=== PATIENT | female | born 1935 | race Caucasian/White ===

== ENCOUNTER 2017-01-27 15:04 | Outpatient (CLI) | payer MEDICARE ==
--- NOTE | 2017-01-27 17:23 | MMO ---
SCREENING MAMMOGRAM: DATE: 01/27/17 HISTORY: Screening mammography. COMPARISON: 03/17/13. FINDINGS: Heterogeneously dense fibroglandular tissue and benign-appearing calcifications are again demonstrat ed. Parenchymal scarring is stable. The left breast is surgically absent. No dominant mass or suspic ious calcifications are apparent. The study was evaluated with the assistance of computer-aided detection. IMPRESSION: BIRADS 2: Benign Finding(s) Suggest routine follow-up. POS: JAG
== END 2017-01-27 15:05 | disposition home or self-care (01) ==
LOC: MAMMO 15:04 → SCSMAMMO 15:05
PROVIDERS: ATTEND Internal Medicine
DX: Z12.31 Encounter for screening mammogram for malignant neoplasm of breast (principal)
CPT/HCPCS: 77067; G0202

== ENCOUNTER 2017-04-26 01:00 | Inpatient (IN) | payer MEDICARE ==
[2017-04-26] MEDS ORDERED: Fentanyl 100 MCG/2 ML VIAL ONE (01:49)
[2017-04-26 02:42] LABS: #Basophils 0.1 thou/uL (0.0-0.2); #Eosinphils 0.3 thou/uL (0.0-0.7); #Lymphocytes 1.9 thou/uL (1.20-3.40); #Monocytes 0.8 thou/uL (0.11-0.59); #Neutrophils 11.3 thou/uL (1.40-6.50); %Basophils 0.8 % (0.0-1.0); %Lymphocytes 13.2 % (21.0-51.0); %Monocytes 5.5 % (0.0-10.0); %Neutrophils 78.7 % (42.0-75.0); Mean Corpuscular HGB CONC 31.8 g/dL (32.0-36.0); Mean Corpuscular Hemoglobin 26.8 pg (27.0-31.0); Mean Corpuscular Volume 84.4 fl (81.0-99.0); Mean Platelet Volume 6.9 fL (7.4-10.4); Platelet Count 236 thou/uL (130-400); RBC Distribution Width 13.5 % (11.5-14.5); Red Blood Cell (RBC) Count 4.47 mill/uL (4.20-5.40); White Blood Cell (WBC) Count 14.4 thou/uL (4.8-10.8)
[2017-04-26 03:01] LABS: ALT (SGPT) 8 U/L (8-55); AST (SGOT) 14 U/L (5-34); Albumin 3.9 g/dL (3.4-4.8); Alkaline Phosphatase 112 U/L (40-150); Anion Gap 15 mmol/L (10-20); BUN (Urea Nitrogen) 34 mg/dL (9.8-20.1); Bilirubin, Total 0.3 mg/dL (0.2-1.2); Calc. Creatinine Clearance 0 mL/min (70-130); Calcium 9.8 mg/dL (7.8-10.44); Carbon Dioxide 22 mmol/L (23-31); Chloride 101 mmol/L (98-107); Estimated GFR-MDRD 31; Globulin 2.9 g/dL (2.4-3.5); Glucose 123 mg/dL (83-110); Potassium 4.9 mmol/L (3.5-5.1); Protein, Total 6.8 g/dL (6.0-8.3); Sodium 133 mmol/L (136-145)
[2017-04-26 05:09] LABS: Bilirubin Negative (Negative); Blood, Urine Negative (Negative); Clarity CLEAR (Clear); Glucose, Urine (Dipstick) Negative (Negative); Leukocyte Negative (Negative); Nitrite Negative (Negative); Protein, Urine (Dipstick) Negative (Neg-Trace); Urobilinogen 0.2 mg/dL (0.2-1.0); pH, Urine 6.5 (5.0-9.0)
[2017-04-26] MEDS ORDERED: HumaLOG 300 UNITS/3 ML VIAL SC PRN ×2 (05:38→16:10)
[2017-04-26] MEDS ORDERED: Ondansetron HCl/PF 4 MG/2 ML Vial IVP PRN (05:38)
[2017-04-26] MEDS ORDERED: Dextrose 5% in Water 1,000 ML IV PRN (05:38)
[2017-04-26] MEDS ORDERED: Dextrose 50% Abboject 50 ML SYRINGE SLOW IVP PRN ×2 (05:38)
[2017-04-26] MEDS: Sodium Chloride 0.9% 1,000 ML IV SCH ×2 (06:32→15:51)
--- NOTE | 2017-04-26 07:36 | HP ---
DATE OF ADMISSION: 04/26/2017 TIME OF VISIT: 03:45. PRIMARY CARE PHYSICIAN: Listed is Dr. Morales, however, Dr. Babin was on her half-way admit p alonso. CHIEF COMPLAINT: Abdominal pain. HISTORY OF PRESENT ILLNESS: Ms. Vieyra is a pleasant 81-year-old white female with a history of cer ebrovascular disease, status post stroke, leaving her with some left hemiplegia, diabetes, hyperlipid emia, chronic atrial fibrillation, UTI, and a small-bowel obstruction in the past, who presents to [facility] emergency department with onset of abdominal pain on 2100 hours on 04/25. The patient states that she was able to eat dinner without difficulty, was passing gas up until the abdominal pain started. She has not had any gas passing since then. Denies any fevers or chills. No chest pain or difficulty breathing. No hematemesis or melena. In the emergency department, she had a CT scan of the abdomen that was concerning for sigmoid volvulu s through the emergency room physician. Dr. Shelton and Dr. Piper were contacted. They agreed t o see the patient and requested that we admit due to multiple chronic medical issues. Official report from the CT has been out. The radiologist has mentioned that he does not think the p atient has a sigmoid volvulus and there is enough stool in the rectal vault to explain the gas retent ion. PAST MEDICAL HISTORY: 1. Urinary tract infections. 2. Small-bowel obstruction. 3. Eosinophilic colitis. 4. 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 5. Diabetes mellitus, type 2. 6. Hyperlipidemia. 7. Anxiety. 8. Chronic atrial fibrillation. 9. Adhesions intraabdominally. PAST SURGICAL HISTORY: 1. Pacemaker placement. 2. Left breast mastectomy and reconstruction. 3. Appendectomy with cholelithiasis. 4. Hernia repair. 5. Hysterectomy. 6. Neck surgery. 7. Left arm surgery. HOME MEDICATIONS: 1. Glyburide 2 mg daily. 2. Aspirin 81 mg daily. 3. Xarelto 15 mg p.o. at bedtime. 4. Lasix 20 mg daily. 5. MiraLax as needed. 6. Dulcolax 5 mg p.o. q.h.s. 7. Colace 100 mg p.o. b.i.d. 8. Milk of magnesia b.i.d. p.r.n. 9. Pazeo 0.7% both eyes daily, 1 drop. 10. Protonix 40 mg p.o. daily. 11. Lipitor 20 mg p.o. at bedtime. 12. Melatonin 3 mg p.o. at bedtime. 15. Temazepam 15 mg p.o. at bedtime. 16. Cardizem-CD 180 mg p.o. b.i.d. 17. Toprol-XL 100 mg p.o. b.i.d. 18. Xanax 1 mg p.o. t.i.d. p.r.n. anxiety. 19. Hydralazine 50 mg p.o. b.i.d. 20. Atorvastatin 20 mg p.o. daily. 21. Spironolactone 50 mg daily. 22. Losartan 50 mg p.o. daily. 23. Acidophilus 1 tablet daily. ALLERGIES: ACETAMINOPHEN, BUSPIRONE, CETIRIZINE, CIPROFLOXACIN, CODEINE, HYDROCODONE, MIRTAZAPINE, M ORPHINE, NAPROSYN, PROPOXYPHENE, VERAPAMIL. SOCIAL HISTORY: She lives at [facility]. Negative for habits x3. FAMILY HISTORY: Negative for clotting or bleeding disorders where she can recall. REVIEW OF SYSTEMS: A 10-point review of systems was performed, and per the patient is negative for a ll systems except as stated as per HPI. PHYSICAL EXAMINATION: VITAL SIGNS: Temperature is 98.3, pulse 72, blood pressure 184/70, respiratory 18, satting 98% on ro om air. Weight is 81 kilograms. GENERAL: She is awake. She is alert. She is oriented x3. She is a well-developed, well-nourished, elderly white female, appears to be in no acute distress. HEENT: Normocephalic, atraumatic. Pupils equal, round, and reactive bilaterally. Mucous membranes are moist. There is no visible lesion or thrush. NECK: Supple. There is no lymphadenopathy, JVD, or thyromegaly with normal carotid upstrokes. I do not appreciate bruits. LUNGS: Clear to auscultation bilaterally, no wheezes, no rales, no rhonchi with good air movement an d symmetrical chest excursion. There is no prolonged expiratory phase. CARDIOVASCULAR: She is irregularly irregular. She is normocardic at 72. She has a faint 2-3/6 syst olic ejection murmur and a faint holosystolic murmur at the apex. ABDOMEN: Tense and distended. She feels like she has a ventral hernia. She is tympanitic. Somewha t tense. She is tender to palpation diffusely. There is no rebound. There is no rigidity or guardi ng. She has scant bowel sounds present in all 4 quadrants with occasional low-pitched sounds and a f ew high-pitched tinkling sounds diffusely. EXTREMITIES: Show no cyanosis and no clubbing. She has no edema. SKIN: Warm, moist, and well perfused. There are no rashes and no lesions. NEUROLOGIC EXAM: Shows cranial nerves to be grossly intact. She has normal speech pattern. She has a 4/5 weakness on the left arm and leg and 5/5 weakness on the right. Otherwise, no other focal def icits. LABORATORY DATA: CMP showed a sodium 133, potassium 4.9, chloride 101, bicarb 22, BUN 34, creatinine 1.58, and calcium 9.8. Sugars are 123. Lactic acid was normal at 1.8. Liver function is normal. CBC showed a white count of 14.4, hemoglobin 12.0, hematocrit of 37.7, platelets 236,000. Radiographic studies show distended colon, no evidence of volvulus. Addendums specifically point out that there is no volvulus. ASSESSMENT AND PLAN: 1. Abdominal pain seems to be better at present. 2. Abdominal distention: There is some stool in the rectal vault. Radiology feels this may be enou gh to cause gas retention. At this point, we will call it obstipation and GI and Surgery were consul venessa by the emergency room physicians to follow up on their recommendations. In the meantime, we will keep her n.p.o., and place her on IV fluids. 3. History of cerebrovascular disease. 4. History of hypertension. 5. History of diabetes mellitus, type 2. 6. Hyperlipidemia. 7. Anxiety with chronic atrial fibrillation. We will hold off on home medications at present pending GI and surgical evaluation. We will follow u p on their recommendations.
--- NOTE | 2017-04-26 08:30 | CT ---
PRELIMINARY REPORT/[facility]/EMERGENCY AFTER HOURS PROCEDURE: Addendum created by Gerard Morelos MD on 04/26/2017 3:12 AM Central Time ([place] & [place]) ADDENDUM: The mid and distal sigmoid colon are mildly distended with gas (maximal measurement 7 cm), without ev idence of obstruction. No sigmoid volvulus. No bowel wall thickening, pneumatosis, or perienteric inf lammation. The remainder of the bowel appears unremarkable. THIS REPORT CONTAINS FINDINGS THAT MAY BE CRITICAL TO PATIENT CARE. The findings were verbally commun icated via telephone conference with ALISON PANIAGUA at 3:11 AM [employer] on 04/26/2017. The findings were a cknowledged and understood. Initial Report created on 04/26/2017 2:58 AM Central Time ([place] & [place]) EXAM: CT Abdomen and Pelvis Without Intravenous Contrast CLINICAL HISTORY: 81 years old, female; Pain; Abdominal pain; Generalized; Patient HX: Abd pain TECHNIQUE: Axial computed tomography images of the abdomen and pelvis without intravenous contrast. Coronal reformatted images were created and reviewed. COMPARISON: No relevant prior studies available. FINDINGS: Lower thorax: Minimal scarring within the anterior right middle lobe. Partially visualized pacemaker leads within the right cardiac chambers. Mild four-chamber cardiac enlargement. Atherosclerotic disea se of the visualized distal thoracic aorta. ABDOMEN: Liver: Normal. Gallbladder and bile ducts: Normal. Pancreas: Normal. Spleen: Calcification of the splenic artery. Adrenals: Normal. Kidneys and ureters: Mild left renal atrophy. Right renal angiomyolipoma. Bilateral simple renal cyst s. Stomach and bowel: Normal. Appendix: No findings to suggest acute appendicitis. PELVIS: Bladder: Normal. Reproductive: Uterus is surgically absent. ABDOMEN and PELVIS: Intraperitoneal space: Normal. No free air. No significant fluid collection. Bones/joints: Generalized bony demineralization. Multilevel thoraco-lumbar spine degenerative changes , with levoscoliosis of the lumbar spine. No acute fracture. No dislocation. Soft tissues: Changes of prior ventral hernia, without acute complications. Vasculature: Atherosclerotic disease of the abdominal aorta and iliac arteries. Lymph nodes: Normal. IMPRESSION: 1. No acute findings. 2. Non-acute findings are described above. Thank you for allowing us to participate in the care of your patient. Dictated and Authenticated by: Gerard Morelos MD 04/26/2017 2:58 AM Central Time ([place] & [place]) FINAL REPORT NONCONTRAST ENHANCED CT IMAGES OF ABDOMEN AND PELVIS: Date: 04/26/17 HISTORY: 81-year-old female with history of abdominal pain. FINDINGS: Noncontrast enhanced CT images of the abdomen and pelvis obtained. IV and oral contrast were not give n per ordering physician. The lung bases are unremarkable. No evidence of free intraperitoneal air seen. The liver is unremarka ble. Splenic artery calcifications seen. There are asymmetric sizes of the right and left kidney with the left kidney being atrophied. Areas of mid and upper pole left renal calcifications seen. No evid ence of hydroureteronephrosis seen. An angiomyolipoma is seen in the lower pole of the right kidney. No evidence of bowel obstruction or ileus seen. No dilated loops of bowel seen. I am in agreement with the preliminary report issued by [facility]. POS: JAG
[2017-04-26] MEDS: Famotidine/PF 20 mg/2ml Vial SLOW IVP SCH (09:06)
[2017-04-26] MEDS ORDERED: Bisacodyl 10 MG SUPP PR PRN (09:38)
[2017-04-26] MEDS ORDERED: hydrALAZINE 20 MG/ML VIAL SLOW IVP PRN (13:10)
[2017-04-26] MEDS ORDERED: Labetalol HCl 100 MG/20 ML VIAL SLOW IVP PRN (13:10)
[2017-04-26] MEDS ORDERED: Artificial Tears 18 DROP/0.9 ML EA EYE PRN (13:13)
[2017-04-26] MEDS ORDERED: Magnesium Citrate 300 ML BOT PO SCH (13:45)
[2017-04-26] MEDS: traMADol HCl 50 MG TAB PO PRN (14:33)
[2017-04-26] MEDS: Docusate 100 MG CAP PO SCH (20:35)
[2017-04-26] MEDS: Rivaroxaban 15 MG TAB PO SCH (20:35)
[2017-04-26] MEDS: Polyethylene Glycol 3350 17 GM Packet PO SCH (20:36)
[2017-04-26] MEDS: Melatonin 3 MG TAB PO PRN (21:26)
--- NOTE | 2017-04-26 22:05 | HP ---
HISTORY OF PRESENT ILLNESS: This is an 81-year-old female, who lives at [facility] in [place]. Patient has had abdominal pain since yesterday. She last passed flatus this morning. Tameka meade has not had a bowel movement in more than 24 hours. She was seen in the emergency room. White cou nt noted to be 14,000, hemoglobin 12. Basic metabolic profile reveals mild acute kidney injury. BUN 34, creatinine 1.58, sodium 133, carbon dioxide 22. Patient has had frequent exacerbations of her B UN and creatinine with mild acute kidney injury looking at the graphics past admissions and hospitali zations. The patient has diabetes, hypertension, had a prior stroke with left hemiparesis, and ambul ates with a walker. She has mild cardiomyopathy, 35%-40% ejection fraction with a right subclavian v ein pacemaker. She has had a left mastectomy with a TRAM flap and mesh repair of incisional hernia o r reinforcement after the TRAM flap. She has had an open cholecystectomy, open appendectomy, a hyste rectomy, and one operation for bowel obstruction, adhesiolysis 10 years ago. Patient reports some ab dominal pain. She has been admitted and Gastroenterology consulted, Dr. Piper as well as myself. CAT scan of abdomen and pelvis was unrevealing. She did have more stool in her rectosigmoid and sl ight in descending and sigmoid colon, but no evidence of volvulus. Dr. Piper has seen her in [facility] and ordered Dulcolax. MEDICATIONS: In the [facility], Artificial Tears, aspirin 81 mg a day, Dulcolax as needed supposit ory, diltiazem 180 mg p.o. b.i.d., Pepcid daily, hydralazine as needed, insulin, labetalol, Levaquin 500 mg a day, metoprolol 100 mg b.i.d., Xarelto 15 mg at bedtime, tramadol 50 mg as needed, ordered i n the hospital. PAST SURGICAL HISTORY: As noted above, left mastectomy reconstruction, TRAM flap; pacemaker, right s ubclavian vein; open cholecystectomy; open appendectomy; and hysterectomy. PAST MEDICAL HISTORY: Diabetes mellitus insulin dependent; hypertension; prior stroke with left gina paresis, ambulatory on a walker; atrial fibrillation, anticoagulation, on Xarelto. ALLERGIES: ACETAMINOPHEN, she states gives her GI upset. No true allergies. Other allergies listed QUINOLONES, HYDROCODONE, MORPHINE, NAPROSYN, VERAPAMIL. PHYSICAL EXAMINATION: VITAL SIGNS: On exam, height 5 feet 4 inches, 30 BMI, temperature 98.2, heart rate 73, blood pressur e 129/73. HEAD, EYES, EARS, NOSE, AND THROAT: Unremarkable. LUNGS: Clear to auscultation. CARDIAC: Regular rate and rhythm without murmur or gallop. ABDOMEN: Soft. Mild tenderness. No rebound tenderness. No significant distention. Scars per abov e surgical history. EXTREMITIES: Unremarkable, left hemiparaplegia. LABORATORY DATA: Sodium 133, potassium 4.9, carbon dioxide 22, BUN 34, creatinine 1.5, GFR 31, gluco se 123. White count 14 and hemoglobin 12. ASSESSMENT AND PLAN: 1. Abdominal pain, probably related to constipation. We will give MiraLax, lactulose, Colace, Dulco lax. She should have a routine program to prevent constipation at home. 2. Diabetes mellitus. 3. Hypertension. 4. Prior stroke, ambulatory with a walker. 5. Multiple operations as noted above. ADDENDUM: I discussed with her code status; patient desires DNR status. She does not want intubation or defibr illation. We will order her status as DNR. Patient is alert, oriented, and conversive and capable o f making her own decisions.
--- NOTE | 2017-04-26 23:17 | CON ---
DATE OF CONSULTATION: 04/26/2017 REFERRING PHYSICIAN: Eric Ramirez M.D. REASON FOR CONSULTATION: Abdominal discomfort, unable to pass flatus and possibility of sigmoid volv ulus. HISTORY OF PRESENT ILLNESS: Ms. Mirella Vieyra is a very pleasant 81-year-old female who is a [facility] resident. Her regular primary care doctor is Dr. Alan Morales. The patient wa s doing well until last night 9:00 when she felt her abdomen is slightly distended and felt uncomfort able and not able to pass any gas. The patient came to the ER and had abdominal CAT scan that was re ad as possible sigmoid volvulus per the ER M.D. I was called to see the patient because of possible volvulus. However, the radiology report states that no volvulus and she has stool in the rectal vaul t and he does not feel that she has volvulus. The patient had stool yesterday and no stool afterward s. She is not passing gas this morning. Her abdominal pain is somewhat in periumbilical area and lo wer abdomen. The pain is mild actually. There is no nausea, vomiting. No history of fever. The pa fauzia tells me she has had recurrent UTIs and has been on antibiotics recently. She also says she wa s getting some Levaquin in the detention. The patient has been hospitalized in the past with maura lar symptoms and was seen by Dr. Zhang in the past. Going over the medical record that I discovered t hat she has had CAT scans done several times over the last couple of years. There is also mention of a colonoscopy. However, I spoke to the patient she has had a colonoscopy in the last 2 or 3 years i [facility] [place] and was told to be negative. The patient has had abdominal surgeries and has had previous surgery for adhesions. At the present time, she appears very comfortable in no dis tress and denies any nausea and vomiting. She says after passing gas, she actually felt better this morning. No other relevant history. ALLERGIES: Multiple including ACETAMINOPHEN, BUSPIRONE, CETIRIZINE, CIPROFLOXACIN which causes tachy cardia, CODEINE, HYDROCODONE, MIRTAZAPINE, MORPHINE, NAPROXEN, PROPOXYPHENE. SOCIAL HISTORY: The patient is disabled. She is a detention resident. There is no history of sm oking or alcohol abuse in the past. MEDICAL ILLNESSES: 1. Recurrent urinary tract infection. 2. Positive for small-bowel obstruction. 3. Eosinophilic colitis. 4. Atrial fibrillation. 5. Status post CVA with residual left-sided weakness. 6. Hyperlipidemia. 7. Anxiety. 8. Status post appendectomy. 9. Status post cholecystectomy. 10. Hernia repair. 11. Hysterectomy. 12. Neck surgery. 13. Left heart surgery. 14. Left breast mastectomy and breast reconstruction. MEDICATIONS: Long list includes glyburide, aspirin, Xarelto, Lasix, MiraLax. She is also on Dulcola x, Colace, milk of magnesia, Pazeo eyedrops. Other medicines include Protonix, Lipitor, melatonin, _ ____, Cardizem, Toprol. She is also on Xanax, hydralazine, atorvastatin, spironolactone, losartan, a nd Acidophilus. FAMILY HISTORY: No family history of any cancer, heart disease, etc. REVIEW OF SYSTEMS: A 10-point systems review. Constitutional: No history of any fever or chills. No weight loss. Has good appetite. Central nervous system: Positive for CVA with residual left-gerry ed weakness, no headache, no syncope, no seizure disorder. Respiratory: No history of chronic cough , hemoptysis or dyspnea. Cardiovascular: No chest pain, no palpitation, no dyspnea, orthopnea or PN D. Gastrointestinal: As in history of present illness. Genitourinary: At the present time, no dys uria, hematuria or frequency of urination. She began having these symptoms a few days ago. Psychiat arthur: History of anxiety. PHYSICAL EXAMINATION: GENERAL: This is very pleasant, elderly who appears very comfortable. She is awake, alert , oriented to time, place and person. VITAL SIGNS: Her temperature 98.5 degrees Fahrenheit, pulse 75, blood pressure 130/74. HEENT: Conjunctivae clear. NECK: Supple. No adenitis or thyromegaly noted. CARDIOVASCULAR SYSTEM: First and second heart sounds normal. LUNGS: Clear to auscultation. ABDOMEN: Mildly distended, but soft. She has a scar over the midline across the abdomen, which is f rom the skin graft for breast reconstruction. CLINICAL IMPRESSION: 1. An 81-year-old female with abdominal pain, not able to pass gas. The initial x-ray was read as possible volvulus, but radiologist report say she had no volvulus. Abdominal exam is very b enign. 2. Past history of small bowel obstruction and also recent admissions. 3. Hysterectomy and cholecystectomy, etc. 4. Status post cerebrovascular accident with residual left-sided weakness. 5. Atrial fibrillation, no . RECOMMENDATIONS: 1. Start clear liquid diet. 2. Dulcolax suppositories now, and one every 8 hours. I will reevaluate patient this afternoon. If she does well, will advance diet to a regular diet this afternoon. Further recommendations wi ll depend upon the hospital course for the patient.
[2017-04-27] MEDS: diphenhydrAMINE 25 MG CAP PO PRN ×2 (03:04→15:01)
[2017-04-27] MEDS: Sodium Chloride 0.9% 1,000 ML IV SCH ×3 (03:09→21:50)
[2017-04-27] MEDS: traMADol HCl 50 MG TAB PO PRN ×2 (05:39→14:56)
[2017-04-27 08:01] LABS: #Eosinphils 0.2 thou/uL (0.0-0.7); #Lymphocytes 1.6 thou/uL (1.20-3.40); #Monocytes 0.8 thou/uL (0.11-0.59); #Neutrophils 8.6 thou/uL (1.40-6.50); %Basophils 0.3 % (0.0-1.0); %Eosinophils 1.8 % (0.0-10.0); %Lymphocytes 13.8 % (21.0-51.0); %Monocytes 6.9 % (0.0-10.0); %Neutrophils 77.2 % (42.0-75.0); Hemoglobin 12.6 g/dL (12.0-16.0); Mean Corpuscular Hemoglobin 26.4 pg (27.0-31.0); Mean Corpuscular Volume 85.1 fl (81.0-99.0); Mean Platelet Volume 7.1 fL (7.4-10.4); Platelet Count 213 thou/uL (130-400); RBC Distribution Width 13.6 % (11.5-14.5); Red Blood Cell (RBC) Count 4.79 mill/uL (4.20-5.40); White Blood Cell (WBC) Count 11.2 thou/uL (4.8-10.8)
[2017-04-27 08:25] LABS: ALT (SGPT) 7 U/L (8-55); AST (SGOT) 17 U/L (5-34); Albumin 3.9 g/dL (3.4-4.8); Alkaline Phosphatase 119 U/L (40-150); Anion Gap 16 mmol/L (10-20); BUN (Urea Nitrogen) 19 mg/dL (9.8-20.1); Bilirubin, Total 0.6 mg/dL (0.2-1.2); Calc. Creatinine Clearance 42 mL/min (70-130); Calcium 9.6 mg/dL (7.8-10.44); Carbon Dioxide 19 mmol/L (23-31); Chloride 103 mmol/L (98-107); Estimated GFR-MDRD 38; Glucose 187 mg/dL (83-110); Magnesium 1.7 mg/dL (1.6-2.6); Phosphorus 2.9 mg/dL (2.3-4.7); Protein, Total 6.9 g/dL (6.0-8.3); Sodium 133 mmol/L (136-145)
[2017-04-27] MEDS: Docusate 100 MG CAP PO SCH ×2 (09:35→21:42)
[2017-04-27] MEDS: Saccharomyces boulardii 250 MG CAP PO SCH (09:35)
[2017-04-27] MEDS: Famotidine 20 MG TAB PO SCH (09:35)
[2017-04-27] MEDS: Aspirin 81 mg Enteric Coated Tablet PO SCH (09:35)
[2017-04-27] MEDS: Famotidine/PF 20 mg/2ml Vial SLOW IVP SCH (09:35)
[2017-04-27] MEDS: Polyethylene Glycol 3350 17 GM Packet PO SCH ×2 (09:36→21:42)
--- NOTE | 2017-04-27 10:36 | PRG ---
DATE OF SERVICE: 04/27/2017 Mirella Vieyra is doing well today. She is not having any abdominal pain since she has had bowel mo vements. She is moving with walking team. She has a Lacey catheter in place. PHYSICAL EXAMINATION: VITAL SIGNS: Temperature 98.5 degrees, 81, 158/83. LUNGS: Clear to auscultation. CARDIAC: Regular rate and rhythm without murmur or gallop. ABDOMEN: Soft, nontender. This morning her acute abdominal series was obtained, it is nonspecific with gas in the colon and sma ll bowel and a few dilated loops, but otherwise no acute findings. At this point, surgery will sign off and see as needed.
--- NOTE | 2017-04-27 10:39 | PRG ---
DATE OF SERVICE: 04/27/2017 SUBJECTIVE: Ms. Mirella Vieyra is an 81-year-old hospitalized with abdominal pain, not ab le to pass gas. The initial impression was that she has a sigmoid volvulus. However, the CAT scan d id not show a volvulus. She is now tolerating a regular diet. She is passing gas and also having fady wel movements. She offers no complaints. PHYSICAL EXAMINATION: GENERAL: Appears comfortable. VITAL SIGNS: Stable. CARDIOVASCULAR: Within normal limits. ABDOMEN: Soft and nontender. RECOMMENDATION: From GI standpoint, no further follow up necessary. Unless she has other medical is sues, she can be transferred back to the care home.
--- NOTE | 2017-04-27 11:05 | RAD ---
ABDOMEN 2 VIEWS WITH 1 VIEW CHEST: Date: 04/27/17 HISTORY: Abdominal pain. COMPARISON: CT from prior day. FINDINGS: Mild gaseous distention of the sigmoid colon. On the chest radiograph, no free air under the hemidiap hragms. Suture material in the right lower lobe. Heart size is enlarged. Calcified granuloma left lat eral mid lung. On the decubitus view, no free air is appreciated. There are a few air fluid levels. IMPRESSION: 1. Mild gaseous distention of the sigmoid colon without overt dilatation. 2. No evidence for bowel obstruction. 3. Cardiomegaly. POS: [facility]
--- NOTE | 2017-04-27 20:18 | PDOC.PN ---
- Subjective Encounter Start Date: 04/27/17 Encounter Start Time: 09:30 Patient seen and examined. Watery diarrhea +. Still has abd distention/ bloating. Some Nausea with poor appetite. Gen weak/fatigue +. No overnight events - Objective Resuscitation Status: Resuscitation Status DNR:Do Not Resuscitate MAR Reviewed: Yes Vital Signs & Weight: Vital Signs (12 hours) Temp Pulse Resp BP Pulse Ox 04/27/17 15:55 98.3 F 63 14 123/58 L 98 04/27/17 11:28 98.4 F 80 12 137/69 98 Weight Weight 180 lb 1.883 oz I&O: 04/26/17 04/27/17 04/28/17 06:59 06:59 06:59 Intake Total 700 Output Total 1550 900 Balance -1550 -200 Result Diagrams: 04/28/17 04:33 04/28/17 04:33 Additional Labs: Accuchecks 04/27/17 04/27/17 04/27/17 15:56 11:29 05:35 POC Glucose 160 H 122 H 113 H 04/26/17 21:12 POC Glucose 118 H Radiology Reviewed by me: Yes (KUB - Colon distention) Phys Exam - Physical Examination Constitutional: NAD Respiratory: no wheezing, no rhonchi Cardiovascular: RRR, no rub Gastrointestinal: soft, positive bowel sounds Gen tenderness, No rebound/guarding Musculoskeletal: no edema Neurological: non-focal, moves all 4 limbs Dx/Plan - Plan DVT proph w/SCDs IMPRESSION: 1. Abd pain/Colon distention - ?Ileus 2. BIBI/CKD 2 3. HTN 4. DM2 5. Enterobacter UTI 6. Anxiety/Chronic Anemia/Dyslipidemia/Chronic diastolic HF/Physical deconditioning/h/o CVA/Chronic Afib on Xarelto PLAN: * Gen candelario/GI following * Cont IVF for BIBI * R/o C diff due to diarrhea with recent Atbx use * Cont Levaquin for UTI (present on admission) * Check post void residuals * Cont current meds as below * Hold other meds due to BIBI Review of Systems - Review of Systems Respiratory: negative: Cough, Dry, Shortness of Breath, Hemoptysis, SOB with Excertion, Pleuritic Pain, Sputum, Wheezing Cardiovascular: negative: chest pain, palpitations, orthopnea, paroxysmal nocturnal dyspnea, edema, light headedness - Medications/Allergies Allergies/Adverse Reactions: Allergies Allergy/AdvReac Type Severity Reaction Status Date / Time acetaminophen Allergy Verified 09/26/16 00:03 [From Darvocet-N 100] buspirone HCl [From BuSpar] Allergy Verified 09/26/16 00:03 cetirizine Allergy Verified 09/26/16 00:03 codeine Allergy Verified 09/26/16 00:03 hydrocodone bitartrate Allergy Verified 09/26/16 00:03 [From Vicodin] mirtazapine Allergy Verified 09/26/16 00:03 naproxen Allergy Verified 09/26/16 00:03 Opioids - Morphine Analogues Allergy Verified 04/26/17 07:23 propoxyphene Allergy Verified 09/26/16 00:03 [From Darvocet-N 100] verapamil Allergy Verified 09/26/16 00:03 ciprofloxacin [From Cipro] AdvReac Verified 04/26/17 10:18 morphine AdvReac Nausea Verified 09/26/16 00:03 Medications: Current Medications Artificial Tears (Tears Naturale) 0 drop EA EYE PRN PRN PRN Reason: Dry Eyes Aspirin (Ecotrin) 81 mg PO DAILY [facility] Last Admin: 04/27/17 09:35 Dose: 81 mg Bisacodyl (Dulcolax) 10 mg [place] Q8H PRN PRN Reason: Constipation Dextrose/Water (Dextrose 50%) 25 gm SLOW IVP PRN PRN PRN Reason: Hypoglycemia Diltiazem HCl (Cardizem Cd) 180 mg PO BID [facility] Last Admin: 04/27/17 09:35 Dose: 180 mg Diphenhydramine HCl (Benadryl) 25 mg PO Q6H PRN PRN Reason: ALLERGY SYMPTOMS Last Admin: 04/27/17 15:01 Dose: 25 mg Docusate Sodium (Colace) 100 mg PO BID [facility] Last Admin: 04/27/17 09:35 Dose: 100 mg Famotidine (Pepcid) 20 mg PO DAILY [facility] Last Admin: 04/27/17 09:35 Dose: 20 mg Fluticasone Propionate (Flonase Nasal [place]) 0 gm NASAL 1700 [place] Glucagon (Glucagon) 1 mg IM PRN PRN PRN Reason: Hypoglycemia Hydralazine HCl (Apresoline) 10 mg SLOW IVP Q4H PRN PRN Reason: SBP Greater Than 180 Dextrose/Water (D5w) 1,000 mls @ 0 mls/hr IV .Q0M PRN; As Directed PRN Reason: Hypoglycemia Sodium Chloride (Normal Saline 0.9%) 1,000 mls @ 100 mls/hr IV .Q10H [facility] Last Admin: 04/27/17 14:51 Dose: Not Given Insulin Human Lispro (Humalog) 0 units SC .MILD SLIDING SCALE PRN PRN Reason: Mild Correctional Scale Insulin Human Lispro (Humalog) 0 units SC .BEDTIME SLIDING SC PRN PRN Reason: Bedtime Correctional Scale Labetalol HCl (Normodyne) 10 mg SLOW IVP Q4H PRN PRN Reason: Systolic BP > 180 Levofloxacin (Levaquin) 250 mg PO 0600 [facility] Melatonin (Melatonin) 3 mg PO HS PRN PRN Reason: Insomnia Last Admin: 04/26/17 21:26 Dose: 3 mg Metoprolol Succinate (Toprol Xl) 100 mg PO BID [facility] Last Admin: 04/27/17 09:35 Dose: 100 mg Ondansetron HCl (Zofran) 4 mg IVP Q6H PRN PRN Reason: Nausea/Vomiting Last Admin: 04/26/17 06:29 Dose: 4 mg Pantoprazole Sodium (Protonix) 40 mg PO DAILY [facility] Polyethylene Glycol (Miralax) 17 gm PO BID [facility] Last Admin: 04/27/17 09:36 Dose: Not Given Rivaroxaban (Xarelto) 15 mg PO HS [facility] Last Admin: 04/26/17 20:35 Dose: 15 mg Saccharomyces Boulardii (Florastor) 250 mg PO DAILY [facility] Last Admin: 04/27/17 09:35 Dose: 250 mg Temazepam (Restoril) 15 mg PO HSPRN PRN PRN Reason: Insomnia Tramadol HCl (Ultram) 50 mg PO Q4H PRN PRN Reason: Moderate Pain (4-6) Last Admin: 04/27/17 14:56 Dose: 50 mg
[2017-04-27] MEDS: Fluticasone Propionate Nasal Spray 16 gm Bottle NASAL SCH (21:38)
[2017-04-27] MEDS: Melatonin 3 MG TAB PO PRN (21:41)
[2017-04-27] MEDS: Rivaroxaban 15 MG TAB PO SCH (21:41)
[2017-04-27] MEDS: Temazepam 15 MG CAP PO PRN (22:58)
[2017-04-28] MEDS: diphenhydrAMINE 25 MG CAP PO PRN (05:58)
[2017-04-28] MEDS: traMADol HCl 50 MG TAB PO PRN ×2 (05:58→14:01)
[2017-04-28 06:18] LABS: #Basophils 0.1 thou/uL (0.0-0.2); #Eosinphils 0.3 thou/uL (0.0-0.7); #Monocytes 0.9 thou/uL (0.11-0.59); #Neutrophils 8.3 thou/uL (1.40-6.50); %Basophils 0.7 % (0.0-1.0); %Eosinophils 2.8 % (0.0-10.0); %Lymphocytes 17.6 % (21.0-51.0); %Monocytes 7.4 % (0.0-10.0); %Neutrophils 71.6 % (42.0-75.0); Hemoglobin 12.8 g/dL (12.0-16.0); Mean Corpuscular HGB CONC 31.5 g/dL (32.0-36.0); Mean Corpuscular Hemoglobin 26.8 pg (27.0-31.0); Mean Corpuscular Volume 84.9 fl (81.0-99.0); Mean Platelet Volume 7.3 fL (7.4-10.4); Platelet Count 213 thou/uL (130-400); RBC Distribution Width 13.7 % (11.5-14.5); Red Blood Cell (RBC) Count 4.79 mill/uL (4.20-5.40); White Blood Cell (WBC) Count 11.6 thou/uL (4.8-10.8)
[2017-04-28 06:33] LABS: ALT (SGPT) 8 U/L (8-55); AST (SGOT) 17 U/L (5-34); Albumin 3.9 g/dL (3.4-4.8); Alkaline Phosphatase 121 U/L (40-150); Anion Gap 14 mmol/L (10-20); BUN (Urea Nitrogen) 23 mg/dL (9.8-20.1); Bilirubin, Total 0.5 mg/dL (0.2-1.2); Calc. Creatinine Clearance 39 mL/min (70-130); Calcium 9.8 mg/dL (7.8-10.44); Carbon Dioxide 23 mmol/L (23-31); Chloride 102 mmol/L (98-107); Estimated GFR-MDRD 34; Globulin 3.1 g/dL (2.4-3.5); Glucose 124 mg/dL (83-110); Magnesium 1.9 mg/dL (1.6-2.6); Potassium 4.6 mmol/L (3.5-5.1); Sodium 134 mmol/L (136-145)
[2017-04-28] MEDS: Sodium Chloride 0.9% 1,000 ML IV SCH (07:42)
[2017-04-28] MEDS: Aspirin 81 mg Enteric Coated Tablet PO SCH (09:26)
[2017-04-28] MEDS: Famotidine 20 MG TAB PO SCH (09:26)
[2017-04-28] MEDS: Lactinex Tablet PO SCH (09:27)
[2017-04-28] MEDS: Docusate 100 MG CAP PO SCH (09:27)
[2017-04-28] MEDS: Saccharomyces boulardii 250 MG CAP PO SCH ×2 (09:28)
[2017-04-28] MEDS: Polyethylene Glycol 3350 17 GM Packet PO SCH ×2 (09:29→21:55)
[2017-04-28] MEDS: Sodium Chloride 0.45% 1,000 ML IV SCH (12:27)
[2017-04-28] MEDS: Vancomycin HCl 25 MG/ML Oral PO SCH ×3 (12:29→23:24)
[2017-04-28] MEDS: Ketotifen Fumarate 0.025% Ophth Soln 5 ml Bottle EA EYE SCH ×2 (13:59→21:54)
[2017-04-28 14:45] VITALS: BMI 30.9
[2017-04-28] MEDS: Fluticasone Propionate Nasal Spray 16 gm Bottle NASAL SCH (17:04)
--- NOTE | 2017-04-28 17:41 | PDOC.PN ---
- Subjective Encounter Start Date: 04/28/17 Encounter Start Time: 14:00 Patient seen and examined. Abd fullness/bloating +. Nausea improving. Poor appetite per patient. No overnight events - Objective Resuscitation Status: Resuscitation Status DNR:Do Not Resuscitate MAR Reviewed: Yes Vital Signs & Weight: Vital Signs (12 hours) Temp Pulse Pulse Resp BP BP Pulse Ox 04/28/17 16:15 98.2 F 63 18 142/75 H 96 04/28/17 13:01 80 138/86 04/28/17 11:39 98.4 F 72 15 138/86 97 04/28/17 09:20 98.7 F 78 14 04/28/17 08:03 98.7 F 78 14 150/73 H 95 Weight Admit Weight 180 lb Weight 180 lb 1.883 oz I&O: 04/27/17 04/28/17 04/29/17 06:59 06:59 06:59 Intake Total 700 Output Total 1550 900 Balance -1550 -200 Result Diagrams: 04/28/17 04:33 04/28/17 04:33 Additional Labs: Accuchecks 04/28/17 04/28/17 04/28/17 16:21 11:09 04:34 POC Glucose 164 H 145 H 126 H 04/27/17 20:10 POC Glucose 151 H Phys Exam - Physical Examination Constitutional: NAD Respiratory: no wheezing, no rhonchi Cardiovascular: RRR, no rub Gastrointestinal: soft, positive bowel sounds mild gen tenderness, no guarding Musculoskeletal: no edema Neurological: non-focal, moves all 4 limbs Psychiatric: A&O x 3 Dx/Plan - Plan DVT proph w/SCDs IMPRESSION: 1. Abd pain/Colon distention - due to Ileus 2. BIBI/CKD 2 3. Cdiff diarrhea 4. DM2/HTN 5. Enterobacter UTI 6. Anxiety/Chronic Anemia/Dyslipidemia/Chronic diastolic HF/Physical deconditioning/h/o CVA/Chronic Afib on Xarelto PLAN * Start Po Vancomycin * DC Levaquin after AM dose * Cont to monitor * Cont IVF for BIBI * DC planning * Cont PT Review of Systems - Review of Systems Respiratory: negative: Cough, Dry, Shortness of Breath, Hemoptysis, SOB with Excertion, Pleuritic Pain, Sputum, Wheezing Cardiovascular: negative: chest pain, palpitations, orthopnea, paroxysmal nocturnal dyspnea, edema, light headedness - Medications/Allergies Allergies/Adverse Reactions: Allergies Allergy/AdvReac Type Severity Reaction Status Date / Time acetaminophen Allergy Verified 09/26/16 00:03 [From Darvocet-N 100] buspirone HCl [From BuSpar] Allergy Verified 09/26/16 00:03 cetirizine Allergy Verified 09/26/16 00:03 codeine Allergy Verified 09/26/16 00:03 hydrocodone bitartrate Allergy Verified 09/26/16 00:03 [From Vicodin] mirtazapine Allergy Verified 09/26/16 00:03 naproxen Allergy Verified 09/26/16 00:03 Opioids - Morphine Analogues Allergy Verified 04/26/17 07:23 propoxyphene Allergy Verified 09/26/16 00:03 [From Darvocet-N 100] verapamil Allergy Verified 09/26/16 00:03 ciprofloxacin [From Cipro] AdvReac Verified 04/26/17 10:18 morphine AdvReac Nausea Verified 09/26/16 00:03 Medications: Current Medications Acidophilus (Floranex) 1 tab PO DAILY [facility] Last Admin: 04/28/17 09:27 Dose: 1 tab Artificial Tears (Tears Naturale) 0 drop EA EYE PRN PRN PRN Reason: Dry Eyes Aspirin (Ecotrin) 81 mg PO DAILY [facility] Last Admin: 04/28/17 09:26 Dose: 81 mg Atorvastatin Calcium (Lipitor) 20 mg PO HS [facility] Bisacodyl (Dulcolax) 10 mg [place] Q8H PRN PRN Reason: Constipation Dextrose/Water (Dextrose 50%) 25 gm SLOW IVP PRN PRN PRN Reason: Hypoglycemia Diltiazem HCl (Cardizem Cd) 180 mg PO BID [facility] Last Admin: 04/28/17 09:26 Dose: 180 mg Diphenhydramine HCl (Benadryl) 25 mg PO Q6H PRN PRN Reason: ALLERGY SYMPTOMS Last Admin: 04/28/17 05:58 Dose: 25 mg Docusate Sodium (Colace) 100 mg PO DAILY [facility] Last Admin: 04/28/17 09:27 Dose: 100 mg Famotidine (Pepcid) 20 mg PO DAILY [facility] Last Admin: 04/28/17 09:26 Dose: 20 mg Fluticasone Propionate (Flonase Nasal [place]) 0 gm NASAL 1700 [facility] Last Admin: 04/28/17 17:04 Dose: 2 spr Glucagon (Glucagon) 1 mg IM PRN PRN PRN Reason: Hypoglycemia Hydralazine HCl (Apresoline) 10 mg SLOW IVP Q4H PRN PRN Reason: SBP Greater Than 180 Dextrose/Water (D5w) 1,000 mls @ 0 mls/hr IV .Q0M PRN; As Directed PRN Reason: Hypoglycemia Sodium Chloride (1/2 Normal Saline) 1,000 mls @ 50 mls/hr IV .Q20H [facility] Stop: 04/29/17 03:16 Last Admin: 04/28/17 12:27 Dose: 1,000 mls Insulin Human Lispro (Humalog) 0 units SC .MILD SLIDING SCALE PRN PRN Reason: Mild Correctional Scale Last Admin: 04/28/17 17:04 Dose: 2 unit Insulin Human Lispro (Humalog) 0 units SC .BEDTIME SLIDING SC PRN PRN Reason: Bedtime Correctional Scale Ketotifen Fumarate (Zaditor 0.025% [facility]) 1 drop EA EYE BID [facility] Last Admin: 04/28/17 13:59 Dose: Not Given Labetalol HCl (Normodyne) 10 mg SLOW IVP Q4H PRN PRN Reason: Systolic BP > 180 Levofloxacin (Levaquin) 250 mg PO 0600 [facility] Last Admin: 04/28/17 06:47 Dose: 250 mg Melatonin (Melatonin) 3 mg PO HS PRN PRN Reason: Insomnia Last Admin: 04/27/17 21:41 Dose: 3 mg Metoprolol Succinate (Toprol Xl) 100 mg PO BID [facility] Last Admin: 04/28/17 09:28 Dose: 100 mg Ondansetron HCl (Zofran) 4 mg IVP Q6H PRN PRN Reason: Nausea/Vomiting Last Admin: 04/26/17 06:29 Dose: 4 mg Pantoprazole Sodium (Protonix) 40 mg PO DAILY [facility] Last Admin: 04/28/17 09:28 Dose: 40 mg Polyethylene Glycol (Miralax) 17 gm PO BID [facility] Last Admin: 04/28/17 09:29 Dose: 17 gm Rivaroxaban (Xarelto) 15 mg PO HS [facility] Last Admin: 04/27/17 21:41 Dose: 15 mg Saccharomyces Boulardii (Florastor) 250 mg PO DAILY [facility] Last Admin: 04/28/17 09:28 Dose: 250 mg Saccharomyces Boulardii (Florastor) 250 mg PO DAILY [facility] Last Admin: 04/28/17 09:28 Dose: 250 mg Sertraline HCl (Zoloft) 50 mg PO DAILY [facility] Last Admin: 04/28/17 09:28 Dose: 50 mg Temazepam (Restoril) 15 mg PO HSPRN PRN PRN Reason: Insomnia Last Admin: 04/27/17 22:58 Dose: 15 mg Tramadol HCl (Ultram) 50 mg PO Q4H PRN PRN Reason: Moderate Pain (4-6) Last Admin: 04/28/17 14:01 Dose: 50 mg Vancomycin HCl (First Vancomycin) 125 mg PO Q6HR [facility] Last Admin: 04/28/17 12:29 Dose: 125 mg
[2017-04-28] MEDS ORDERED: Atorvastatin Calcium 20 MG TAB PO SCH (21:00)
[2017-04-28] MEDS: Temazepam 15 MG CAP PO PRN (21:55)
[2017-04-28] MEDS: Melatonin 3 MG TAB PO PRN (21:55)
[2017-04-28] MEDS: Rivaroxaban 15 MG TAB PO SCH (21:55)
[2017-04-29] MEDS: diphenhydrAMINE 25 MG CAP PO PRN (05:03)
[2017-04-29] MEDS: Vancomycin HCl 25 MG/ML Oral PO SCH ×2 (05:03→12:29)
[2017-04-29] MEDS: Sodium Chloride 0.45% 1,000 ML IV SCH (05:11)
[2017-04-29 08:27] VITALS: BP 126/73; TEMP 98.9
[2017-04-29 08:39] LABS: #Basophils 0.1 thou/uL (0.0-0.2); #Eosinphils 0.3 thou/uL (0.0-0.7); #Lymphocytes 1.7 thou/uL (1.20-3.40); #Monocytes 0.5 thou/uL (0.11-0.59); #Neutrophils 8.6 thou/uL (1.40-6.50); %Basophils 0.6 % (0.0-1.0); %Monocytes 4.5 % (0.0-10.0); %Neutrophils 76.9 % (42.0-75.0); Hemoglobin 12.2 g/dL (12.0-16.0); Mean Corpuscular HGB CONC 31.2 g/dL (32.0-36.0); Mean Corpuscular Hemoglobin 26.4 pg (27.0-31.0); Mean Corpuscular Volume 84.5 fl (81.0-99.0); Mean Platelet Volume 7.1 fL (7.4-10.4); Platelet Count 180 thou/uL (130-400); RBC Distribution Width 13.4 % (11.5-14.5); Red Blood Cell (RBC) Count 4.63 mill/uL (4.20-5.40); White Blood Cell (WBC) Count 11.2 thou/uL (4.8-10.8)
[2017-04-29] MEDS: Aspirin 81 mg Enteric Coated Tablet PO SCH (08:42)
[2017-04-29] MEDS: Ketotifen Fumarate 0.025% Ophth Soln 5 ml Bottle EA EYE SCH (08:43)
[2017-04-29] MEDS: Docusate 100 MG CAP PO SCH (08:43)
[2017-04-29] MEDS: Lactinex Tablet PO SCH (08:43)
[2017-04-29] MEDS: Famotidine 20 MG TAB PO SCH (08:43)
[2017-04-29] MEDS: Polyethylene Glycol 3350 17 GM Packet PO SCH (08:44)
[2017-04-29] MEDS: Saccharomyces boulardii 250 MG CAP PO SCH ×2 (08:44)
[2017-04-29 08:54] LABS: Albumin 3.9 g/dL (3.4-4.8); Anion Gap 15 mmol/L (10-20); BUN (Urea Nitrogen) 23 mg/dL (9.8-20.1); BUN/Creatinine Ratio 18.85; Calc. Creatinine Clearance 47 mL/min (70-130); Calcium 9.6 mg/dL (7.8-10.44); Carbon Dioxide 23 mmol/L (23-31); Chloride 102 mmol/L (98-107); Estimated GFR-MDRD 42; Glucose 164 mg/dL (83-110); Magnesium 1.6 mg/dL (1.6-2.6); Phosphorus 3.1 mg/dL (2.3-4.7); Potassium 4.6 mmol/L (3.5-5.1); Sodium 135 mmol/L (136-145)
[2017-04-29] MEDS: Fluticasone Propionate Nasal Spray 16 gm Bottle NASAL SCH (08:54)
--- NOTE | 2017-04-29 11:50 | DIS ---
DATE OF DISCHARGE: 04/29/2017 DISCHARGE DISPOSITION: [facility]. ALLERGIES: The patient is allergic to multiple medications including TYLENOL, BUSPIRONE, CETIRIZINE, CODEINE, HYDROCODONE, REMERON, OPIOIDS, CIPROFLOXACIN, and MORPHINE. The patient was seen and examined on the day of discharge. Denies any new complaints. No chest pain , shortness of breath, or palpitations. DISCHARGE MEDICATIONS: 1. Aspirin 81 mg daily. 2. Lipitor 20 mg at bedtime. 3. Citrucel 500 mg b.i.d. 4. Cardizem-CD 180 mg b.i.d.. 5. Colace 100 mg b.i.d. 6. Glimepiride 2 mg daily. 7. Lactobacillus 1 capsule daily. 8. Claritin 10 mg daily. 9. Losartan 50 mg daily. 10. Melatonin 10 mg at bedtime 11. Metformin 500 mg b.i.d. 12. Toprol-XL 100 mg b.i.d. 13. Olopatadine eye drops in each eye daily. 14. Protonix 40 mg daily. 15. MiraLax 17 grams b.i.d. 16. Xarelto 15 mg at bedtime. 17. Florastor 250 mg daily. 18. Zoloft 50 mg daily. 19. Restoril 15 mg at bedtime. 20. Oral vancomycin 125 mg 4 times daily for 10 days. INPATIENT CONSULTANTS: 1. General Surgery, Dr. Ferrell. 2. Gastroenterology, Dr. Piper. BRIEF HOSPITAL COURSE: The patient is an 81-year-old female, senior care resident with history of C VA; diabetes mellitus, type 2; hypertension; chronic atrial fibrillation, on anticoagulation, who pre sented to the hospital with abdominal discomfort. Please refer to the history and physical dated for further details. The patient was admitted to the hospital with a diagnosis of abdominal distention with gaseous disten tion of the mid and the distal sigmoid colon, measuring 7 cm. She was evaluated by General Surgery a s well as Gastroenterology. She was started on MiraLax with good improvement in her symptoms. She u nderwent a KUB that still showed persistent gaseous dilatation. Due to diarrhea, a stool for C. diff icile was checked that was positive for antigen and negative for toxin. She also had renal insuffici ency that improved with IV fluids. We will hold Lasix, Aldactone, and losartan for now. Repeat labs after 2-3 days is recommended. We can safely start losartan, probably at that time. Her blood pres sure currently is 126/73 on Cardizem-CD 180 mg b.i.d. as well as Toprol-XL 100 mg b.i.d. Please note that patient was recently diagnosed with Enterobacter UTI and completed Levaquin during this hospita l stay. She appears stable for discharge. FINAL DIAGNOSES: 1. Abdominal distention with nausea and vomiting secondary to ileus. 2. Clostridium difficile diarrhea. Antigen positive and toxin negative. 3. Acute kidney injury on chronic kidney disease stage 2. Improved with IV fluids. Please note Las ix, Aldactone, and losartan has been discontinued. Her blood pressure, on the day of discharge, is 1 26. Primary care physician is advised to monitor. 4. Diabetes mellitus, type 2. 5. Hypertension. 6. Recent Enterobacter urinary tract infection, completed antibiotics. 7. Anxiety. 8. Chronic anemia. 9. Dyslipidemia. 10. Chronic diastolic heart failure. 11. Physical deconditioning. 12. History of cerebrovascular accident. 13. Chronic atrial fibrillation, on Xarelto. Plan of care was discussed with the patient in detail. She stated understanding. Total time coordinating the discharge of this patient was 33 minutes. Repeat Clostridium difficile t esting after a month is recommended. If she is persistently C. difficile positive, she will benefit from vancomycin taper. Plan of care was discussed with the patient in detail. She stated understanding.
== END 2017-04-29 12:10 | DRG 372 ==
LOC: ERS 01:00 → SURG A 05:30
PROVIDERS: ADMIT Internal Medicine Infectious Disease; ATTEND Internal Medicine Infectious Disease
DX: A04.72 Enterocolitis due to Clostridium difficile, not specified as recurrent (principal); N17.9 Acute kidney failure, unspecified; K56.609 Unspecified intestinal obstruction, unspecified as to partial versus complete obstruction; E11.8 Type 2 diabetes mellitus with unspecified complications; K56.7 Ileus, unspecified; I42.9 Cardiomyopathy, unspecified; I50.32 Chronic diastolic (congestive) heart failure; I13.0 Hypertensive heart and chronic kidney disease with heart failure and stage 1 through stage 4 chronic kidney disease, or unspecified chronic kidney disease; I69.354 Hemiplegia and hemiparesis following cerebral infarction affecting left non-dominant side; N39.0 Urinary tract infection, site not specified; I48.2 Chronic atrial fibrillation; N18.2 Chronic kidney disease, stage 2 (mild); K59.00 Constipation, unspecified; F41.9 Anxiety disorder, unspecified; Z79.4 Long term (current) use of insulin; B96.89 Other specified bacterial agents as the cause of diseases classified elsewhere; Z90.49 Acquired absence of other specified parts of digestive tract; Z66 Do not resuscitate; Z79.01 Long term (current) use of anticoagulants; Z95.0 Presence of cardiac pacemaker; Z90.11 Acquired absence of right breast and nipple; Z88.6 Allergy status to analgesic agent; Z88.1 Allergy status to other antibiotic agents; Z88.5 Allergy status to narcotic agent; Z88.8 Allergy status to other drugs, medicaments and biological substances
CPT/HCPCS: 36415; 36416; 74022; 74176; 80053; 80069; 81003; 83605; 83735; 84100; 85025; 87324; 87449; 87493; 96374; C1751; G8978-GP-CL; G8979-GP-CK; G8987-GO-CL; G8988-GO-CK; J2405; J3010; S0028

== ENCOUNTER 2017-07-05 04:52 | Inpatient (IN) | payer MEDICARE, OTHER ==
[2017-07-05 05:24] LABS: Actual Bicarbonate (HCO3a) 27.7 mEq/L (22-26); Base Excess (BEa) 3.1 mEq/L (0 (+/-) 2.5); CO2 Tension 42.4 mmHg (35.0-45.0); O2 Tension (PaO2) 76.8 mmHg (80.0-100.0); pH, Arterial 7.43 (7.35-7.45)
[2017-07-05 05:25] LABS: Calcium, Ionized 1.2 mmol/L (1.12-1.30); Hematocrit-ABG 35.5 % (36.0-47.0); Hemoglobin (Hb) 9.8 g/dL (12.0-16.0)
[2017-07-05 05:26] LABS: Analyzer IN Cardio ER; Puncture Site RRA
[2017-07-05 05:54] LABS: #Eosinphils 0.1 thou/uL (0.0-0.7); #Lymphocytes 0.7 thou/uL (1.20-3.40); #Monocytes 1.2 thou/uL (0.11-0.59); #Neutrophils 14.7 thou/uL (1.40-6.50); %Basophils 0.3 % (0.0-1.0); %Eosinophils 0.7 % (0.0-10.0); %Lymphocytes 4.3 % (21.0-51.0); %Neutrophils 87.7 % (42.0-75.0); Hemoglobin 9.8 g/dL (12.0-16.0); Mean Corpuscular HGB CONC 30.8 g/dL (32.0-36.0); Mean Corpuscular Hemoglobin 24.1 pg (27.0-31.0); Mean Corpuscular Volume 78.1 fl (81.0-99.0); Mean Platelet Volume 7.2 fL (7.4-10.4); Platelet Count 278 thou/uL (130-400); Red Blood Cell (RBC) Count 4.06 mill/uL (4.20-5.40); White Blood Cell (WBC) Count 16.8 thou/uL (4.8-10.8)
[2017-07-05 05:57] LABS: INR-International Normal Ratio 2.1; Prothrombin Time 23.9 SEC (12.0-14.7)
[2017-07-05 05:58] LABS: PTT 46.8 SEC (22.9-36.1)
[2017-07-05 06:10] LABS: ALT (SGPT) Less than 7 U/L (8-55); AST (SGOT) 11 U/L (5-34); Albumin 3.3 g/dL (3.4-4.8); Alkaline Phosphatase 138 U/L (40-150); Anion Gap 15 mmol/L (10-20); BUN (Urea Nitrogen) 16 mg/dL (9.8-20.1); CK (CPK) 52 U/L (29-168); Calc. Creatinine Clearance 0 mL/min (70-130); Calcium 8.8 mg/dL (7.8-10.44); Carbon Dioxide 23 mmol/L (23-31); Chloride 100 mmol/L (98-107); Estimated GFR-MDRD 61; Globulin 2.9 g/dL (2.4-3.5); Glucose 170 mg/dL (83-110); Lipase 6 U/L (8-78); Potassium 3.9 mmol/L (3.5-5.1); Protein, Total 6.2 g/dL (6.0-8.3); Sodium 134 mmol/L (136-145)
[2017-07-05 06:14] LABS: CKMB 0.6 ng/mL (0-6.6); Troponin I 0.014 ng/mL (< 0.028)
[2017-07-05] MEDS ORDERED: Albuterol Sulfate 2.5 mg/0.5 ml Neb ONE (07:43)
--- NOTE | 2017-07-05 08:00 | RAD ---
RADIOGRAPH CHEST 1 VIEW: Date: 07/05/17. Time: 5:03 a.m. HISTORY: An 82-year-old female with cough, chest pain, dyspnea, hypoxemia, and atrial fibrillation. COMPARISON: 04/27/17. FINDINGS: Again noted are the right subclavian single-lead pacemaker and surgical clips at the left axilla and left breast. There is cardiomegaly, slightly worse than on prior study. There is pulmonary vasculat ure engorgement. Mild, patchy infiltrate-like density at right mid-upper lung zone, in the upper lob e. Questionable retrocardiac, perihilar airspace density. Mildly increased attenuation at right bas e. No pneumothorax. No effacement of lateral costophrenic angles. IMPRESSION: 1. Cardiomegaly. 2. Mild patchy bilateral pulmonary densities, suspicious for multifocal bronchopneumonia. 3. 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 JENIFFER [] POS: JAG
[2017-07-05] MEDS ORDERED: Dextrose 5% in Water 1,000 ML IV PRN (08:29)
[2017-07-05] MEDS ORDERED: HumaLOG 300 UNITS/3 ML VIAL SC PRN (08:29)
[2017-07-05] MEDS ORDERED: Ondansetron ODT 4 MG TAB PO PRN (08:29)
[2017-07-05] MEDS ORDERED: Ondansetron HCl/PF 4 MG/2 ML Vial IVP PRN (08:29)
[2017-07-05] MEDS ORDERED: Dextrose 50% Abboject 50 ML SYRINGE SLOW IVP PRN (08:29)
[2017-07-05] MEDS ORDERED: Eucerin (Mineral Oil/Petrolatum,White) 30 gm Jar TOP PRN (08:29)
[2017-07-05] MEDS ORDERED: Senokot 8.6 MG TAB PO PRN (08:29)
[2017-07-05] MEDS ORDERED: Chloraseptic Spray 180 ml Bottle PO PRN (08:29)
[2017-07-05] MEDS ORDERED: Loperamide HCl 2 MG CAP PO PRN (08:29)
[2017-07-05] MEDS ORDERED: Sodium Chloride 0.65% Nasal 44 ML BOT EA NARE PRN (08:29)
[2017-07-05] MEDS ORDERED: Milk Of Magnesia 30 ML UDCUP PO PRN (08:29)
[2017-07-05] MEDS ORDERED: hydrALAZINE 20 MG/ML VIAL SLOW IVP PRN (08:29)
[2017-07-05] MEDS ORDERED: Artificial Tears 18 DROP/0.9 ML EA EYE PRN (08:29)
[2017-07-05] MEDS ORDERED: Mag-Al 1200 mg/1200 mg/30 ML UDCUP PO PRN (08:29)
[2017-07-05 10:08] VITALS: BMI 27.8
[2017-07-05] MEDS ORDERED: Cefepime 2 GM in Sodium Chloride 0.9% 100 ML IVPB SCH (10:30)
[2017-07-05] MEDS ORDERED: Famotidine 20 MG TAB PO SCH (10:30)
[2017-07-05] MEDS: guaiFENesin ER 600 MG TAB PO SCH ×2 (11:32→20:52)
[2017-07-05] MEDS: Saccharomyces boulardii 250 MG CAP PO SCH (11:32)
[2017-07-05] MEDS: Cefepime 2 GM, Syringe 2.5 ML in Sterile Water 10 ML SLOW IVP SCH ×2 (11:33→22:03)
[2017-07-05] MEDS: Vancomycin HCl 1.25 GM in Sodium Chloride 0.9% 250 ML 250 ML IVPB SCH (11:33)
[2017-07-05] MEDS: traMADol HCl 50 MG TAB PO PRN (12:21)
--- NOTE | 2017-07-05 13:15 | SPC ---
PICC PLACEMENT ULTRASOUND GUIDED VENOUS ACCESS: (Peripherally Inserted Central Catheter) DATE: 07/05/17. HISTORY: An 82-year-old female with pneumonia requiring long-term IV antibiotics. The patient stated that she must not have any PICC placed in left arm because of status post left mastectomy and left axillary ly mph node dissection. TECHNIQUE: Catheter caliber: 5 Polish. Catheter trim length: 39 cm. Catheter lumen number: double. Catheter tip location: superior vena cava. Vein accessed: right basilic. Signed, informed consent was obtained. A tourniquet was applied at the proximal aspect of the arm. The arm was prepared and draped in the usual sterile fashion. A 25 gauge needle was used to apply bu ffered lidocaine superficially. The vein was punctured with a 21 gauge micropuncture needle under ul trasound guidance. A 0.018 inch guide wire was advanced through the micropuncture needle and into th e vein. Under fluoroscopic guidance, the guide wire was advanced to the right atrium. The PICC (per ipherally inserted central catheter) was flushed and trimmed to the appropriate length. The skin pun cture hole was widened with a blade. The micropuncture needle was exchanged over the guide wire for a 5 Polish peel-away dilator sheath. The dilator was exchanged over the guide wire for the PICC, whi ch was then further advanced under fluoroscopy. The sheath and guide wire were removed. The PICC wa s flushed again and secured in place at the arm. The patient tolerated the procedure well. There wa s no complication. IMPRESSION: Successful placement of PICC (peripherally inserted central catheter) lico [] POS: JAG
--- NOTE | 2017-07-05 14:09 | HP ---
PRIMARY CARE PHYSICIAN: Dr. Jeffery Morales. REASONS FOR ADMISSION: 1. Acute respiratory failure with hypoxia. 2. Health care-associated in place (long term acquired pneumonia). HISTORY OF PRESENT ILLNESS: An 82-year-old female who lives at [facility]. She was having increasing shortness of breath, cough and chest pain. Her chest pain description was pleuritic. The patient reports that for the last 2 days, she is feeling cough, shortness of breath and chest pain. She denies any fever or chills. She denies any UTI symptoms. She denies any constipation, diarrhea, melena or hematochezia. Paramedics was called and paramedics noted that her oxygen level was 80% on room air and that is why they put her on 4 liter oxygen and she was maintaining saturation. She does not use oxygen at long term on normal basis. In the emergency room, she was slightly hypertensive and she was having low grade fever and she was hypoxic. She was having a very hard time to find IV access and that is why she required PICC line. Routine blood test showed leukocytosis with a left shift and elevated BNP. She denies any orthopnea, PND or lower extremity swelling. ALLERGIES: BUSPIRONE, CIPROFLOXACIN, CODEINE SULFATE, HYDROCODONE, MORPHINE, NAPROXEN, PROPOXYPHENE and VERAPAMIL. CURRENT HOME MEDICATIONS: Metformin 500 mg twice daily, glimepiride 2 mg daily , aspirin 81 mg daily, MiraLax 17 grams p.o. daily, Probiotic 1 capsule daily, Claritin 10 mg daily, Protonix 40 mg daily, losartan 50 mg p.o. daily, Aldactone 50 mg p.o. daily, Lipitor 20 mg p.o. daily, Restoril 15 mg p.o. at bedtime, Dulcolax as needed, Cardizem CD 180 mg twice daily, Toprol-XL 100 mg twice daily, hydralazine 50 mg twice daily, Colace 100 mg twice daily, lansoprazole 30 mg daily, Xarelto 15 mg at bedtime, Xanax 1 mg 3 times daily p.r.n., Milk of Magnesia p.r.n., Maalox p.r.n., tramadol p.r.n. and Tylenol p.r.n. REVIEW OF SYSTEMS: Please see my HPI for pertinent positive and negative. All other review of systems reviewed and negative except as mentioned in the HPI. Constitutional: Weight loss or gain, ability to conduct usual activities. Skin: Rash, itching. Eyes: Double vision, pain. ENT/Mouth: Nose bleeding, neck stiffness, pain, tenderness. Cardiovascular: Palpitations, dyspnea on exertion, orthopnea. Respiratory: Shortness of breath, wheezing, cough, hemoptysis, fever or night sweats. Gastrointestinal: Poor appetite, abdominal pain, heartburn, nausea, vomiting, constipation, or diarrhea. Genitourinary: Urgency, frequency, dysuria, nocturia. Musculoskeletal: Pain, swelling. Neurologic/Psychiatric: Anxiety, depression. Allergy/Immunologic: Skin rash, bleeding tendency. PAST MEDICAL HISTORY: Chronic atrial fibrillation, hypertension, dyslipidemia, diabetes type 2, history of CVA, history of eosinophilic colitis, history of constipation, history of intestinal adhesion caused a small-bowel obstruction, physical deconditioning, history of breast cancer, history of ventral abdominal hernia and chronic iron deficiency anemia. PAST SURGICAL HISTORY: Appendicectomy, cholecystectomy, hysterectomy, left mastectomy, open reduction and internal fixation of right femoral neck fracture , pacemaker placement for tachybrady syndrome, ventral abdominal hernia repair with mesh placement and reconstruction of left breast. PAST PSYCHIATRIC HISTORY: Anxiety and depression. SOCIAL HISTORY: The patient lives at [facility]. No history of tobacco, alcohol or illicit drug abuse. FAMILY HISTORY: No strong family history of premature coronary artery disease, stroke or cancer. EMERGENCY ROOM COURSE: The patient was given Decadron 10 mg, magnesium sulfate , azithromycin, sodium chloride 1 liter, vancomycin 1 gram, DuoNeb therapy and albuterol nebulization. PHYSICAL EXAMINATION: VITAL SIGNS: On arrival, blood pressure 185/89, pulse 90, respiratory rate 22, temperature 99.3, saturation 93% on 4 liter oxygen and weight 63.5 kilograms. GENERAL: The patient is currently alert, awake and hypertensive, no obvious acute distress. HEAD: Normocephalic and atraumatic. EYES: Pupils are round and reactive to light. Extraocular muscle intact. ENT: Oropharynx within normal limits. Moist mucous membrane. No oral lesions , no pharyngeal erythema, no exudate. NECK: Supple. No JVD, no thyromegaly, no carotid bruit, no jugular venous distention. LUNGS: Bilateral scattered wheezing heard. No obvious rales noted. No accessory muscles of respiration in use. CARDIAC: S1 and S2 irregular. No murmur elicited, no gallop, no rub. ABDOMEN: Soft. Bowel sounds present. Nontender and nondistended. No organomegaly, no mass, no suprapubic tenderness. BACK: Unremarkable. No CVA tenderness. EXTREMITIES: Upper extremity; passive movement of all joints are normal. Lower extremity; trace lower extremity edema noted. No calf tenderness. Good distal pulsation. SKIN: No skin rash. HEMATOLOGICAL SYSTEM: No lymphadenopathy. PSYCHIATRIC: Normal affect. SIGNIFICANT LABS AND IMAGING DATA: EKG showing atrial fibrillation with controlled ventricular response, premature ventricular complexes, LVH criteria and nonspecific ST-T changes. Chest x-ray based on my review, right upper lobe infiltrate, patchy, bilateral pulmonary density consistent with multifocal bronchopneumonia, cardiomegaly, left lumpectomy and axillary lymph node dissection. CBC: WBC 16.8, hemoglobin 9.8, platelet 278 with a left shift. INR 2.1. ABG: PH 7.43, CO2 of 42.4, O2 of 76.8, bicarbonate 27.7 and saturation 96.8. BMP: Sodium 134, potassium 3.9, chloride 100, carbon dioxide 23, BUN 16, creatinine 0.89, glucose 170, calcium 8.8. Lactic acid 0.8. LFT: AST 11, ALT less than 7, alkaline phosphatase 138, albumin 3.3, lipase 6, CK 52, CK-MB 0.6, troponin I 0.014 and BNP 676.6. ASSESSMENT, PLAN AND IMPRESSION: 1. Acute respiratory failure with hypoxia, most likely due to underlying pneumonia and possible congestive heart failure exacerbation. She was saturating 80s on room air and with oxygen, her saturation improved to normal. During this admission, we will treat underlying pneumonia and congestive heart failure and then we will monitor her oxygen requirement. 2. Sepsis with acute organ dysfunction. This patient has leukocytosis with left shift, low grade fever and she has bilateral patchy density consistent with bronchopneumonia. We will also rule out urinary tract infection, but most likely source of infection is a pneumonia and she has hypoxic respiratory failure. 3. Bilateral multifocal pneumonia, long term acquired pneumonia/healthcare- associated bacterial pneumonia. The patient will be treated with cefepime, Levaquin and vancomycin as per renally adjusted dose. We will continue DuoNeb therapy q.6 hourly and Mucinex 600 mg twice daily. 4. Acute on chronic systolic congestive heart failure. Based on previous echocardiography, her ejection fraction is 35%. During this admission, we will repeat echocardiography as this patient did not have any echocardiography since 2016. We will continue with Lasix 20 mg IV b.i.d. Continue Toprol-XL as per home dosage. Based on echocardiographic finding, we will decide further adjustment of dose of medication. Continue losartan and hydralazine as per home dosage. 5. Chronic atrial fibrillation. Continue Toprol-XL and Cardizem CD. Currently , rate is under control and patient is already on chronic anticoagulation with Xarelto. 6. Hypertension. Continue Cardizem CD, Toprol-XL and losartan as per home dosage and will use hydralazine on p.r.n. basis. 7. Dyslipidemia. Continue Lipitor 20 mg p.o. at bedtime. 8. Gastroesophageal reflux disease. We will continue Protonix 40 mg p.o. daily. 9. Anxiety and depression. Continue patient's home dose of Xanax, Restoril, trazodone and Zoloft while in hospital. 10. Diabetes type 2. We will continue insulin as per sliding scale per protocol. Continue metformin 500 mg p.o. b.i.d. Diabetic diet will be given. We will also continue Amaryl 2 mg p.o. daily. 11. Deep venous thrombosis prophylaxis not needed because patient is already on Xarelto therapy. 12. Gastrointestinal prophylaxis. Protonix 40 mg p.o. daily. CODE STATUS: The patient is FULL CODE. The patient does not have any surrogate decision maker at this point. Disposition plan based on clinical course. We are expecting patient's stay in hospital more than 2 midnights. Plan of care discussed with the patient in hospital. This patient is a very hard stick, and that is why she will need PICC line placement. ELROYD
[2017-07-05] MEDS: Furosemide 20 MG/2 ML VIAL SLOW IVP SCH (14:11)
[2017-07-05] MEDS: metFORMIN 500 MG TAB PO SCH (17:10)
[2017-07-05] MEDS: traZODone HCl 50 MG TAB PO SCH (20:50)
[2017-07-05] MEDS: Ketotifen Fumarate 0.025% Ophth Soln 5 ml Bottle EA EYE SCH (20:50)
[2017-07-05] MEDS: hydrALAZINE 10 MG TAB PO SCH (20:51)
[2017-07-05] MEDS: Docusate 100 MG CAP PO SCH (20:51)
[2017-07-05] MEDS: Bisacodyl 5 MG TAB PO SCH (20:51)
[2017-07-05] MEDS: Polyethylene Glycol 3350 17 GM Packet PO SCH (20:51)
[2017-07-05] MEDS: Atorvastatin Calcium 20 MG TAB PO SCH (20:51)
[2017-07-05] MEDS: Citrucel 500 MG TAB PO SCH (20:52)
[2017-07-05] MEDS: Temazepam 15 MG CAP PO SCH (20:52)
[2017-07-05] MEDS: Rivaroxaban 15 MG TAB PO SCH (20:52)
[2017-07-05] MEDS: diphenhydrAMINE 25 MG CAP PO SCH (20:52)
[2017-07-05] MEDS: Diabetic Tussin 200 MG/10 ML UDCUP PO PRN (21:48)
[2017-07-06] MEDS: Diabetic Tussin 200 MG/10 ML UDCUP PO PRN ×2 (03:52→15:11)
[2017-07-06] MEDS: Furosemide 20 MG/2 ML VIAL SLOW IVP SCH ×2 (05:32→14:39)
[2017-07-06 05:55] LABS: Hemoglobin 9.3 g/dL (12.0-16.0); Lymphocytes 5 % (21-51); MDiff Complete? YES; Mean Corpuscular HGB CONC 30.8 g/dL (32.0-36.0); Mean Corpuscular Hemoglobin 24.2 pg (27.0-31.0); Mean Corpuscular Volume 78.7 fl (81.0-99.0); Mean Platelet Volume 7.3 fL (7.4-10.4); Monocytes 8 % (0-10); Neutrophil 87 % (42-75); Platelet Count 255 thou/uL (130-400); RBC Distribution Width 13.9 % (11.5-14.5); Red Blood Cell (RBC) Count 3.83 mill/uL (4.20-5.40); White Blood Cell (WBC) Count 13.7 thou/uL (4.8-10.8)
[2017-07-06 06:06] LABS: ALT (SGPT) Less than 7 U/L (8-55); AST (SGOT) 13 U/L (5-34); Alkaline Phosphatase 126 U/L (40-150); Anion Gap 13 mmol/L (10-20); BUN (Urea Nitrogen) 16 mg/dL (9.8-20.1); Bilirubin, Total 0.9 mg/dL (0.2-1.2); Calc. Creatinine Clearance 56 mL/min (70-130); Calcium 8.6 mg/dL (7.8-10.44); Carbon Dioxide 26 mmol/L (23-31); Chloride 99 mmol/L (98-107); Estimated GFR-MDRD 61; Globulin 2.7 g/dL (2.4-3.5); Glucose 116 mg/dL (83-110); Potassium 3.7 mmol/L (3.5-5.1); Protein, Total 5.7 g/dL (6.0-8.3); Sodium 134 mmol/L (136-145)
[2017-07-06] MEDS: traMADol HCl 50 MG TAB PO PRN ×2 (06:17→16:11)
[2017-07-06] MEDS ORDERED: Famotidine 20 MG TAB PO SCH (09:00)
[2017-07-06] MEDS ORDERED: Heparin 1,000 UNITS/ML VIAL ONE (09:00)
[2017-07-06] MEDS: Lactinex Tablet PO SCH (10:02)
[2017-07-06] MEDS: Losartan 25 MG TAB PO SCH (10:02)
[2017-07-06] MEDS: Loratadine 10 MG TAB PO SCH (10:02)
[2017-07-06] MEDS: guaiFENesin ER 600 MG TAB PO SCH ×2 (10:03→20:52)
[2017-07-06] MEDS: Glimepiride 2 MG TAB PO SCH (10:03)
[2017-07-06] MEDS: Saccharomyces boulardii 250 MG CAP PO SCH (10:04)
[2017-07-06] MEDS: Docusate 100 MG CAP PO SCH ×2 (10:04→20:51)
[2017-07-06] MEDS: Aspirin 81 mg Enteric Coated Tablet PO SCH (10:04)
[2017-07-06] MEDS: metFORMIN 500 MG TAB PO SCH ×2 (10:05→16:13)
[2017-07-06] MEDS: Polyethylene Glycol 3350 17 GM Packet PO SCH ×2 (10:06→20:53)
[2017-07-06] MEDS: Citrucel 500 MG TAB PO SCH ×2 (10:06→20:51)
[2017-07-06] MEDS: Ketotifen Fumarate 0.025% Ophth Soln 5 ml Bottle EA EYE SCH ×2 (10:07→20:53)
--- NOTE | 2017-07-06 10:14 | PDOC.PN ---
- Subjective Encounter Start Date: 07/06/17 Encounter Start Time: 07:40 -: old records requested/rev Patient seen and examined. No new complaints. No overnight events feels better, has suprapubic discomfort - Objective Resuscitation Status: Resuscitation Status DNR:Do Not Resuscitate MAR Reviewed: Yes Vital Signs & Weight: Vital Signs (12 hours) Temp Pulse Resp BP Pulse Ox 07/06/17 07:23 99.3 F 95 18 147/65 H 95 07/06/17 06:52 98 16 98 07/06/17 04:00 99.8 F H 77 16 137/62 93 L 07/06/17 00:00 98.2 F 81 18 127/58 L 96 07/05/17 23:25 93 16 98 Weight Weight 159 lb 8 oz I&O: 07/05/17 07/06/17 07/07/17 06:59 06:59 06:59 Intake Total 400 Balance 400 Result Diagrams: 07/06/17 04:41 07/06/17 04:41 Additional Labs: Accuchecks 07/06/17 07/05/17 07/05/17 05:35 21:25 15:51 POC Glucose 143 H 120 H 193 H 07/05/17 11:45 POC Glucose 128 H EKG Reviewed by me: Yes (pacing) Phys Exam - Physical Examination Constitutional: NAD HEENT: PERRLA, moist MMs, sclera anicteric Neck: no JVD, supple Respiratory: no wheezing, no rales, no rhonchi Cardiovascular: no significant murmur, no rub, irregular Gastrointestinal: soft, non-tender, no distention, positive bowel sounds Musculoskeletal: no edema, pulses present Neurological: non-focal, normal sensation, moves all 4 limbs Lymphatic: no nodes Psychiatric: normal affect, A&O x 3 Skin: no rash, normal turgor Dx/Plan (1) Acute respiratory failure with hypoxia Code(s): J96.01 - ACUTE RESPIRATORY FAILURE WITH HYPOXIA Status: Acute (2) Healthcare associated bacterial pneumonia Code(s): J15.9 - UNSPECIFIED BACTERIAL PNEUMONIA Status: Acute (3) Sepsis with acute organ dysfunction Code(s): A41.9 - SEPSIS, UNSPECIFIED ORGANISM; R65.20 - SEVERE SEPSIS WITHOUT SEPTIC SHOCK Status: Acute (4) UTI (urinary tract infection) Status: Acute (5) Chronic anticoagulation Code(s): Z79.01 - [facility] (CURRENT) USE OF ANTICOAGULANTS Status: Chronic Comment: (6) Chronic atrial fibrillation Code(s): I48.2 - CHRONIC ATRIAL FIBRILLATION Status: Chronic Comment: (7) Diabetes type 2, controlled Code(s): E11.9 - TYPE 2 DIABETES MELLITUS WITHOUT COMPLICATIONS Status: Chronic Comment: (8) Diastolic heart failure Code(s): I50.30 - UNSPECIFIED DIASTOLIC (CONGESTIVE) HEART FAILURE Status: Chronic Qualifiers: Heart failure chronicity: chronic Qualified Code(s): I50.32 - Chronic diastolic (congestive) heart failure (9) Dyslipidemia Code(s): E78.5 - HYPERLIPIDEMIA, UNSPECIFIED Status: Chronic (10) Hypertension Code(s): I10 - ESSENTIAL (PRIMARY) HYPERTENSION Status: Chronic (11) Microcytic anemia Code(s): D50.9 - IRON DEFICIENCY ANEMIA, UNSPECIFIED Status: Chronic (12) Pulmonary hypertension Code(s): I27.2 - OTHER SECONDARY PULMONARY HYPERTENSION * DO NOT USE * Status : Chronic (13) Tricuspid regurgitation Code(s): I07.1 - RHEUMATIC TRICUSPID INSUFFICIENCY Status: Chronic - Plan cont current plan of care, continue antibiotics * continue cefepime, levaquin and vancomycin * continue respiratory therapy * send UA and urine culture * continue slected home medication * follow culture * wean off oxygen as needed * medication reviewed as below * Symptomatic treatment Review of Systems - Review of Systems Constitutional: negative: fever, chills, sweats, weakness, malaise, other Eyes: negative: Pain, Vision Change, Conjunctivae Inflammation, Eyelid Inflammation, Redness, Other ENT: negative: Ear Pain, Ear Discharge, Nose Pain, Nose Discharge, Nose Congestion, Mouth Pain, Mouth Swelling, Throat Pain, Throat Swelling, Other Respiratory: negative: Cough, Dry, Shortness of Breath, Hemoptysis, SOB with Excertion, Pleuritic Pain, Sputum, Wheezing Cardiovascular: negative: chest pain, palpitations, orthopnea, paroxysmal nocturnal dyspnea, edema, light headedness, other Gastrointestinal: Abdominal Pain. negative: Nausea, Vomiting, Diarrhea, Constipation, Melena, Hematochezia, Other Genitourinary: negative: Dysuria, Frequency, Incontinence, Hematuria, Retention , Other Musculoskeletal: negative: Neck Pain, Shoulder Pain, Arm Pain, Back Pain, Hand Pain, Leg Pain, Foot Pain, Other Skin: negative: Rash, Lesions, Aris, Bruising, Other Neurological: negative: Weakness, Numbness, Incoordination, Change in Speech, Confusion, Seizures, Other - Medications/Allergies Allergies/Adverse Reactions: Allergies Allergy/AdvReac Type Severity Reaction Status Date / Time acetaminophen Allergy Verified 09/26/16 00:03 [From Darvocet-N 100] buspirone HCl [From BuSpar] Allergy Verified 09/26/16 00:03 cetirizine Allergy Verified 09/26/16 00:03 codeine Allergy Verified 09/26/16 00:03 hydrocodone bitartrate Allergy Verified 09/26/16 00:03 [From Vicodin] mirtazapine Allergy Verified 09/26/16 00:03 naproxen Allergy Verified 09/26/16 00:03 Opioids - Morphine Analogues Allergy Verified 04/26/17 07:23 propoxyphene Allergy Verified 09/26/16 00:03 [From Darvocet-N 100] verapamil Allergy Verified 09/26/16 00:03 ciprofloxacin [From Cipro] AdvReac Verified 04/26/17 10:18 morphine AdvReac Nausea Verified 09/26/16 00:03 Medications: Current Medications Acidophilus (Floranex) 1 tab PO DAILY [facility] Last Admin: 07/06/17 10:02 Dose: 1 tab Al Hydroxide/Mg Hydroxide (Maalox) 30 ml PO Q6H PRN PRN Reason: Heartburn or Indigestion Albuterol/Ipratropium (Duoneb) 3 ml NEB [id number] [facility] Last Admin: 07/06/17 06:52 Dose: 3 ml Artificial Tears (Tears Naturale) 0 drop EA EYE PRN PRN PRN Reason: Dry Eyes Aspirin (Ecotrin) 81 mg PO DAILY [facility] Last Admin: 07/06/17 10:04 Dose: 81 mg Atorvastatin Calcium (Lipitor) 20 mg PO HS [facility] Last Admin: 07/05/17 20:51 Dose: 20 mg Bisacodyl (Dulcolax) 10 mg PO HS [facility] Last Admin: 07/05/17 20:51 Dose: 10 mg Dextrose/Water (Dextrose 50%) 25 gm SLOW IVP PRN PRN PRN Reason: Hypoglycemia Diltiazem HCl (Cardizem Cd) 180 mg PO BID [facility] Last Admin: 07/06/17 10:05 Dose: 180 mg Diphenhydramine HCl (Benadryl) 25 mg PO HS [facility] Last Admin: 07/05/17 20:52 Dose: 25 mg Docusate Sodium (Colace) 100 mg PO BID [facility] Last Admin: 07/06/17 10:04 Dose: 100 mg Furosemide (Lasix) 20 mg SLOW IVP 0600,1400 [facility] Last Admin: 07/06/17 05:32 Dose: 20 mg Glimepiride (Amaryl) 2 mg PO QAM-WM [facility] Last Admin: 07/06/17 10:03 Dose: 2 mg Glucagon (Glucagon) 1 mg IM PRN PRN PRN Reason: Hypoglycemia Guaifenesin (Robitussin Sf) 200 mg PO Q4H PRN PRN Reason: Cough Last Admin: 07/06/17 03:52 Dose: 200 mg Guaifenesin (Mucinex) 600 mg PO Q12HR [facility] Last Admin: 07/06/17 10:03 Dose: 600 mg Hydralazine HCl (Apresoline) 10 mg SLOW IVP Q4H PRN PRN Reason: Systolic BP > 180 Hydralazine HCl (Apresoline) 10 mg PO [facility] Last Admin: 07/05/17 20:51 Dose: 10 mg Dextrose/Water (D5w) 1,000 mls @ 0 mls/hr IV .Q0M PRN; As Directed PRN Reason: Hypoglycemia Levofloxacin 750 mg/ Device 150 mls @ 100 mls/hr IVPB Q2D@1300 [facility] Last Admin: 07/05/17 14:09 Dose: 150 mls Vancomycin HCl 1.25 gm/ Sodium (Chloride) 250 mls @ 166.667 mls/hr IVPB 1100 [facility] Last Admin: 07/05/17 11:33 Dose: 250 mls Cefepime HCl 2 gm/ Syringe 2.5 (ml/ Sterile Water) 12.5 mls @ 150 mls/hr SLOW IVP 1100,2300 [facility] Last Admin: 07/05/17 22:03 Dose: 12.5 mls Insulin Human Lispro (Humalog) 0 units SC .MODERATE SLIDING SC PRN PRN Reason: Moderate Correctional Scale Insulin Human Lispro (Humalog) 0 units SC .BEDTIME SLIDING SC PRN PRN Reason: Bedtime Correctional Scale Ketotifen Fumarate (Zaditor 0.025% [facility]) 1 drop EA EYE BID [facility] Last Admin: 07/06/17 10:07 Dose: 1 drop Loperamide HCl (Imodium) 2 mg PO PRN PRN PRN Reason: Diarrhea/Loose Stools Loratadine (Claritin) 10 mg PO DAILY [facility] Losartan Potassium (Cozaar) 100 mg PO DAILY [facility] Magnesium Hydroxide (Milk Of Magnesium) 30 ml PO DAILYPRN PRN PRN Reason: Constipation Metformin HCl (Glucophage) 500 mg PO BID[facility] Last Admin: 07/06/17 10:05 Dose: 500 mg Methylcellulose (Citrucel) 500 mg PO BID [facility] Last Admin: 07/06/17 10:06 Dose: 500 mg Metoprolol Succinate (Toprol Xl) 100 mg PO BID [facility] Last Admin: 07/06/17 10:02 Dose: 100 mg Mineral Oil/White Petrolatum (Eucerin Cream) 0 gm TOP BIDPRN PRN PRN Reason: Dry Skin Miscellaneous Medication (Pharmacy To Dose) 1 each IVPB .VANCOMYCIN [facility] Ondansetron HCl (Zofran Odt) 4 mg PO Q6H PRN PRN Reason: Nausea/Vomiting Ondansetron HCl (Zofran) 4 mg IVP Q6H PRN PRN Reason: Nausea/Vomiting Pantoprazole Sodium (Protonix) 40 mg PO DAILY [facility] Last Admin: 07/06/17 10:04 Dose: 40 mg Phenol (Chloraseptic [place] 180 Ml Bot) 0 ml PO PRN PRN PRN Reason: Sore Throat Polyethylene Glycol (Miralax) 17 gm PO BID [facility] Last Admin: 07/06/17 10:06 Dose: 17 gm Rivaroxaban (Xarelto) 15 mg PO [facility] Last Admin: 07/05/17 20:52 Dose: 15 mg Saccharomyces Boulardii (Florastor) 250 mg PO DAILY [facility] Last Admin: 07/06/17 10:04 Dose: 250 mg Senna (Senokot) 2 tab PO HSPRN PRN PRN Reason: Constipation Sertraline HCl (Zoloft) 50 mg PO DAILY [facility] Last Admin: 07/06/17 10:03 Dose: 50 mg Sodium Chloride (Andrew Nasal [place] 0.65%) 0 ml EA NARE QIDPRN PRN PRN Reason: Nasal Congestion Temazepam (Restoril) 15 mg PO [facility] Last Admin: 07/05/17 20:52 Dose: 15 mg Tramadol HCl (Ultram) 50 mg PO Q6HR PRN PRN Reason: Pain Last Admin: 07/06/17 06:17 Dose: 50 mg Trazodone HCl (Desyrel) 100 mg PO [facility] Last Admin: 07/05/17 20:50 Dose: 100 mg
[2017-07-06] MEDS: Cefepime 2 GM, Syringe 2.5 ML in Sterile Water 10 ML SLOW IVP SCH ×2 (12:09→23:57)
[2017-07-06] MEDS: Vancomycin HCl 1.25 GM in Sodium Chloride 0.9% 250 ML 250 ML IVPB SCH (12:10)
[2017-07-06 17:45] LABS: Bilirubin Negative (Negative); Blood, Urine Negative (Negative); Clarity CLEAR (Clear); Glucose, Urine (Dipstick) Negative (Negative); Leukocyte Trace (Negative); Nitrite Negative (Negative); Protein, Urine (Dipstick) Negative (Neg-Trace); Specific Gravity, Urine 1.011 (1.002-1.036); Urobilinogen 0.2 mg/dL (0.2-1.0)
[2017-07-06 17:50] LABS: Bacteria/HPF None Seen HPF (None Seen); Hyaline Casts/LPF 4-6 HYALINE CAST LPF (0-3 Hyaline); Pathc Cast-AUWi Flag 1.21 (0-2.49); RBC/HPF 0-3 HPF (0-3); Squamous Epithelial 0-3 HPF (0-3)
[2017-07-06] MEDS: Atorvastatin Calcium 20 MG TAB PO SCH (20:50)
[2017-07-06] MEDS: Bisacodyl 5 MG TAB PO SCH (20:50)
[2017-07-06] MEDS: hydrALAZINE 10 MG TAB PO SCH (20:51)
[2017-07-06] MEDS: diphenhydrAMINE 25 MG CAP PO SCH (20:51)
[2017-07-06] MEDS: Rivaroxaban 15 MG TAB PO SCH (20:52)
[2017-07-06] MEDS: traZODone HCl 50 MG TAB PO SCH (20:52)
[2017-07-06] MEDS: Temazepam 15 MG CAP PO SCH (20:53)
[2017-07-07] MEDS: Diabetic Tussin 200 MG/10 ML UDCUP PO PRN (03:59)
[2017-07-07] MEDS: traMADol HCl 50 MG TAB PO PRN ×2 (04:02→11:19)
[2017-07-07] MEDS: Furosemide 20 MG/2 ML VIAL SLOW IVP SCH ×2 (05:40→16:13)
[2017-07-07] MEDS: guaiFENesin ER 600 MG TAB PO SCH ×2 (09:02→21:38)
[2017-07-07] MEDS: Aspirin 81 mg Enteric Coated Tablet PO SCH (09:02)
[2017-07-07] MEDS: Docusate 100 MG CAP PO SCH ×2 (09:02→21:38)
[2017-07-07] MEDS: Glimepiride 2 MG TAB PO SCH (09:02)
[2017-07-07] MEDS: Losartan 25 MG TAB PO SCH (09:02)
[2017-07-07] MEDS: Saccharomyces boulardii 250 MG CAP PO SCH (09:03)
[2017-07-07] MEDS: Ketotifen Fumarate 0.025% Ophth Soln 5 ml Bottle EA EYE SCH ×2 (09:03→21:49)
[2017-07-07] MEDS: Lactinex Tablet PO SCH (09:03)
[2017-07-07] MEDS: metFORMIN 500 MG TAB PO SCH ×2 (09:03→17:46)
[2017-07-07] MEDS: Citrucel 500 MG TAB PO SCH ×2 (09:03→21:43)
[2017-07-07] MEDS: Loratadine 10 MG TAB PO SCH (09:03)
[2017-07-07] MEDS: Polyethylene Glycol 3350 17 GM Packet PO SCH ×2 (09:03→21:48)
[2017-07-07 10:37] LABS: Vancomycin, Trough 11.7 ug/mL
[2017-07-07] MEDS: Vancomycin HCl 750 MG in Sodium Chloride 0.9% 250 ML 250 ML IVPB SCH ×2 (11:19→23:14)
--- NOTE | 2017-07-07 11:46 | PDOC.PN ---
- Subjective Encounter Start Date: 07/07/17 Encounter Start Time: 07:45 Patient seen and examined. No new complaints. No overnight events - Objective Resuscitation Status: Resuscitation Status DNR:Do Not Resuscitate MAR Reviewed: Yes Vital Signs & Weight: Vital Signs (12 hours) Temp Pulse Resp BP Pulse Ox 07/07/17 08:00 98.2 F 86 16 154/72 H 96 07/07/17 06:20 89 18 96 07/07/17 04:00 98.2 F 71 20 136/69 95 07/07/17 00:35 88 16 07/07/17 00:00 98.1 F 71 16 116/69 94 L Weight Weight 159 lb 8 oz I&O: 07/06/17 07/07/17 07/08/17 06:59 06:59 06:59 Intake Total 400 513 240 Output Total 10 Balance 400 503 240 Result Diagrams: 07/06/17 04:41 07/06/17 04:41 Additional Labs: Accuchecks 07/07/17 07/06/17 07/06/17 03:37 20:52 16:31 POC Glucose 110 147 H 116 H 07/06/17 12:04 POC Glucose 146 H Phys Exam - Physical Examination Constitutional: NAD HEENT: PERRLA, moist MMs, sclera anicteric Neck: no JVD, supple Respiratory: no wheezing, no rhonchi reduced 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 entry at base Cardiovascular: RRR, no significant murmur, no rub Gastrointestinal: soft, non-tender, no distention, positive bowel sounds Musculoskeletal: no edema, pulses present Neurological: non-focal, normal sensation Psychiatric: normal affect, A&O x 3 Skin: no rash, normal turgor Dx/Plan (1) Acute respiratory failure with hypoxia Code(s): J96.01 - ACUTE RESPIRATORY FAILURE WITH HYPOXIA Status: Acute (2) Healthcare associated bacterial pneumonia Code(s): J15.9 - UNSPECIFIED BACTERIAL PNEUMONIA Status: Acute (3) Sepsis with acute organ dysfunction Code(s): A41.9 - SEPSIS, UNSPECIFIED ORGANISM; R65.20 - SEVERE SEPSIS WITHOUT SEPTIC SHOCK Status: Acute (4) UTI (urinary tract infection) Status: Acute (5) Chronic anticoagulation Code(s): Z79.01 - PENITENTIARY (CURRENT) USE OF ANTICOAGULANTS Status: Chronic Comment: (6) Chronic atrial fibrillation Code(s): I48.2 - CHRONIC ATRIAL FIBRILLATION Status: Chronic Comment: (7) Diabetes type 2, controlled Code(s): E11.9 - TYPE 2 DIABETES MELLITUS WITHOUT COMPLICATIONS Status: Chronic Comment: (8) Diastolic heart failure Code(s): I50.30 - UNSPECIFIED DIASTOLIC (CONGESTIVE) HEART FAILURE Status: Chronic Qualifiers: Heart failure chronicity: chronic Qualified Code(s): I50.32 - Chronic diastolic (congestive) heart failure (9) Dyslipidemia Code(s): E78.5 - HYPERLIPIDEMIA, UNSPECIFIED Status: Chronic (10) Hypertension Code(s): I10 - ESSENTIAL (PRIMARY) HYPERTENSION Status: Chronic (11) Microcytic anemia Code(s): D50.9 - IRON DEFICIENCY ANEMIA, UNSPECIFIED Status: Chronic (12) Pulmonary hypertension Code(s): I27.2 - OTHER SECONDARY PULMONARY HYPERTENSION * DO NOT USE * Status : Chronic (13) Tricuspid regurgitation Code(s): I07.1 - RHEUMATIC TRICUSPID INSUFFICIENCY Status: Chronic - Plan cont current plan of care, continue antibiotics, PT/OT, respiratory therapy * continue IV antibiotics as below * medication reviewed as below * symptomatic treatment * tomorrow repeat labs and repeat chest xray * stable and slowly improving * get Echo today.. Review of Systems - Review of Systems ENT: negative: Ear Pain, Ear Discharge, Nose Pain, Nose Discharge, Nose Congestion, Mouth Pain, Mouth Swelling, Throat Pain, Throat Swelling, Other Respiratory: negative: Cough, Dry, Shortness of Breath, Hemoptysis, SOB with Excertion, Pleuritic Pain, Sputum, Wheezing Cardiovascular: negative: chest pain, palpitations, orthopnea, paroxysmal nocturnal dyspnea, edema, light headedness, other Gastrointestinal: negative: Nausea, Vomiting, Abdominal Pain, Diarrhea, Constipation, Melena, Hematochezia, Other Genitourinary: negative: Dysuria, Frequency, Incontinence, Hematuria, Retention , Other Musculoskeletal: negative: Neck Pain, Shoulder Pain, Arm Pain, Back Pain, Hand Pain, Leg Pain, Foot Pain, Other Skin: negative: Rash, Lesions, Aris, Bruising, Other - Medications/Allergies Allergies/Adverse Reactions: Allergies Allergy/AdvReac Type Severity Reaction Status Date / Time acetaminophen Allergy Verified 09/26/16 00:03 [From Darvocet-N 100] buspirone HCl [From BuSpar] Allergy Verified 09/26/16 00:03 cetirizine Allergy Verified 09/26/16 00:03 codeine Allergy Verified 09/26/16 00:03 hydrocodone bitartrate Allergy Verified 09/26/16 00:03 [From Vicodin] mirtazapine Allergy Verified 09/26/16 00:03 naproxen Allergy Verified 09/26/16 00:03 Opioids - Morphine Analogues Allergy Verified 04/26/17 07:23 propoxyphene Allergy Verified 09/26/16 00:03 [From Darvocet-N 100] verapamil Allergy Verified 09/26/16 00:03 ciprofloxacin [From Cipro] AdvReac Verified 04/26/17 10:18 morphine AdvReac Nausea Verified 09/26/16 00:03 Medications: Current Medications Acidophilus (Floranex) 1 tab PO DAILY [facility] Last Admin: 07/07/17 09:03 Dose: 1 tab Al Hydroxide/Mg Hydroxide (Maalox) 30 ml PO Q6H PRN PRN Reason: Heartburn or Indigestion Albuterol/Ipratropium (Duoneb) 3 ml NEB [id number] [facility] Last Admin: 07/07/17 06:20 Dose: 3 ml Artificial Tears (Tears Naturale) 0 drop EA EYE PRN PRN PRN Reason: Dry Eyes Aspirin (Ecotrin) 81 mg PO DAILY [facility] Last Admin: 07/07/17 09:02 Dose: 81 mg Atorvastatin Calcium (Lipitor) 20 mg PO HS [facility] Last Admin: 07/06/17 20:50 Dose: 20 mg Bisacodyl (Dulcolax) 10 mg PO HS [facility] Last Admin: 07/06/17 20:50 Dose: 10 mg Dextrose/Water (Dextrose 50%) 25 gm SLOW IVP PRN PRN PRN Reason: Hypoglycemia Diltiazem HCl (Cardizem Cd) 180 mg PO BID [facility] Last Admin: 07/07/17 09:03 Dose: 180 mg Diphenhydramine HCl (Benadryl) 25 mg PO HS [facility] Last Admin: 07/06/17 20:51 Dose: 25 mg Docusate Sodium (Colace) 100 mg PO BID [facility] Last Admin: 07/07/17 09:02 Dose: 100 mg Furosemide (Lasix) 20 mg SLOW IVP 0600,1400 [facility] Last Admin: 07/07/17 05:40 Dose: 20 mg Glimepiride (Amaryl) 2 mg PO QAM-WM [facility] Last Admin: 07/07/17 09:02 Dose: 2 mg Glucagon (Glucagon) 1 mg IM PRN PRN PRN Reason: Hypoglycemia Guaifenesin (Robitussin Sf) 200 mg PO Q4H PRN PRN Reason: Cough Last Admin: 07/07/17 03:59 Dose: 200 mg Guaifenesin (Mucinex) 600 mg PO Q12HR [facility] Last Admin: 07/07/17 09:02 Dose: 600 mg Hydralazine HCl (Apresoline) 10 mg SLOW IVP Q4H PRN PRN Reason: Systolic BP > 180 Hydralazine HCl (Apresoline) 10 mg PO HS [facility] Last Admin: 07/06/17 20:51 Dose: 10 mg Dextrose/Water (D5w) 1,000 mls @ 0 mls/hr IV .Q0M PRN; As Directed PRN Reason: Hypoglycemia Levofloxacin 750 mg/ Device 150 mls @ 100 mls/hr IVPB Q2D@1300 [facility] Last Admin: 07/05/17 14:09 Dose: 150 mls Cefepime HCl 2 gm/ Syringe 2.5 (ml/ Sterile Water) 12.5 mls @ 150 mls/hr SLOW IVP 1100,2300 [facility] Last Admin: 07/06/17 23:57 Dose: 12.5 mls Vancomycin HCl 750 mg/ Sodium (Chloride) 250 mls @ 250 mls/hr IVPB 1100,2300 [facility] Last Admin: 07/07/17 11:19 Dose: 250 mls Insulin Human Lispro (Humalog) 0 units SC .MODERATE SLIDING SC PRN PRN Reason: Moderate Correctional Scale Insulin Human Lispro (Humalog) 0 units SC .BEDTIME SLIDING SC PRN PRN Reason: Bedtime Correctional Scale Ketotifen Fumarate (Zaditor 0.025% Ophth Soln) 1 drop EA EYE BID [facility] Last Admin: 07/07/17 09:03 Dose: 1 drop Loperamide HCl (Imodium) 2 mg PO PRN PRN PRN Reason: Diarrhea/Loose Stools Loratadine (Claritin) 10 mg PO DAILY [facility] Last Admin: 07/07/17 09:03 Dose: 10 mg Losartan Potassium (Cozaar) 100 mg PO DAILY [facility] Last Admin: 07/07/17 09:02 Dose: 100 mg Magnesium Hydroxide (Milk Of Magnesium) 30 ml PO DAILYPRN PRN PRN Reason: Constipation [facility] ([facility]) [facility] Last Admin: 07/07/17 09:03 Dose: 500 mg Methylcellulose (Citrucel) 500 mg PO BID [facility] Last Admin: 07/07/17 09:03 Dose: 500 mg Metoprolol Succinate (Toprol Xl) 100 mg PO BID [facility] Last Admin: 07/07/17 09:02 Dose: 100 mg Mineral Oil/White Petrolatum (Eucerin Cream) 0 gm TOP BIDPRN PRN PRN Reason: Dry Skin Last Admin: 07/06/17 20:49 Dose: 1 applic Miscellaneous Medication (Pharmacy To Dose) 1 each IVPB .VANCOMYCIN [facility] Ondansetron HCl (Zofran Odt) 4 mg PO Q6H PRN PRN Reason: Nausea/Vomiting Ondansetron HCl (Zofran) 4 mg IVP Q6H PRN PRN Reason: Nausea/Vomiting Pantoprazole Sodium (Protonix) 40 mg PO DAILY [facility] Last Admin: 07/07/17 09:03 Dose: 40 mg Phenol (Chloraseptic [place] 180 Ml Bot) 0 ml PO PRN PRN PRN Reason: Sore Throat Polyethylene Glycol (Miralax) 17 gm PO BID [facility] Last Admin: 07/07/17 09:03 Dose: 17 gm Rivaroxaban (Xarelto) 15 mg PO [facility] Last Admin: 07/06/17 20:52 Dose: 15 mg Saccharomyces Boulardii (Florastor) 250 mg PO DAILY [facility] Last Admin: 07/07/17 09:03 Dose: 250 mg Senna (Senokot) 2 tab PO HSPRN PRN PRN Reason: Constipation Sertraline HCl (Zoloft) 50 mg PO DAILY [facility] Last Admin: 07/07/17 09:03 Dose: 50 mg Sodium Chloride ([place] Nasal [place] 0.65%) 0 ml EA NARE QIDPRN PRN PRN Reason: Nasal Congestion Temazepam (Restoril) 15 mg PO [facility] Last Admin: 07/06/17 20:53 Dose: 15 mg Tramadol HCl (Ultram) 50 mg PO Q6HR PRN PRN Reason: Pain Last Admin: 07/07/17 11:19 Dose: 50 mg Trazodone HCl (Desyrel) 100 mg PO [facility] Last Admin: 07/06/17 20:52 Dose: 100 mg
[2017-07-07] MEDS: Cefepime 2 GM, Syringe 2.5 ML in Sterile Water 10 ML SLOW IVP SCH ×2 (12:31→14:06)
[2017-07-07] MEDS ORDERED: diphenhydrAMINE 25 MG CAP PO SCH (18:45)
[2017-07-07] MEDS ORDERED: methylPREDNISolone Sod Succ/PF 125 MG/2 ML VIAL IVP SCH (21:15)
[2017-07-07] MEDS: Atorvastatin Calcium 20 MG TAB PO SCH (21:38)
[2017-07-07] MEDS: Temazepam 15 MG CAP PO SCH (21:38)
[2017-07-07] MEDS: Bisacodyl 5 MG TAB PO SCH (21:39)
[2017-07-07] MEDS: diphenhydrAMINE 25 MG CAP PO SCH (21:40)
[2017-07-07] MEDS: traZODone HCl 50 MG TAB PO SCH (21:41)
[2017-07-07] MEDS: hydrALAZINE 10 MG TAB PO SCH (21:42)
[2017-07-07] MEDS: hydrOXYzine 25 MG TAB PO PRN (21:46)
[2017-07-07] MEDS: Rivaroxaban 15 MG TAB PO SCH (21:48)
[2017-07-08] MEDS: Cefepime 2 GM, Syringe 2.5 ML in Sterile Water 10 ML SLOW IVP SCH ×2 (01:16→14:11)
[2017-07-08 04:43] LABS: #Eosinphils 0.1 thou/uL (0.0-0.7); #Lymphocytes 0.7 thou/uL (1.20-3.40); #Monocytes 0.1 thou/uL (0.11-0.59); #Neutrophils 15.2 thou/uL (1.40-6.50); %Basophils 0.1 % (0.0-1.0); %Eosinophils 0.4 % (0.0-10.0); %Lymphocytes 4.1 % (21.0-51.0); %Monocytes 0.8 % (0.0-10.0); %Neutrophils 94.6 % (42.0-75.0); Hemoglobin 10.7 g/dL (12.0-16.0); Mean Corpuscular HGB CONC 30.5 g/dL (32.0-36.0); Mean Corpuscular Hemoglobin 24.4 pg (27.0-31.0); Mean Corpuscular Volume 79.9 fl (81.0-99.0); Mean Platelet Volume 7.5 fL (7.4-10.4); Platelet Count 323 thou/uL (130-400); RBC Distribution Width 14.2 % (11.5-14.5)
[2017-07-08 04:53] LABS: Anion Gap 14 mmol/L (10-20); BUN (Urea Nitrogen) 28 mg/dL (9.8-20.1); Calc. Creatinine Clearance 44 mL/min (70-130); Calcium 8.9 mg/dL (7.8-10.44); Carbon Dioxide 29 mmol/L (23-31); Chloride 94 mmol/L (98-107); Estimated GFR-MDRD 47; Glucose 270 mg/dL (83-110); Sodium 133 mmol/L (136-145)
[2017-07-08] MEDS: Furosemide 20 MG/2 ML VIAL SLOW IVP SCH ×2 (06:30→14:13)
--- NOTE | 2017-07-08 08:12 | RAD ---
PORTABLE CHEST: History: Respiratory distress. Comparison: 07-05-17 FINDINGS: Heart size is enlarged. A pacemaker is present. Post-operative changes of the right lung are seen. No infiltrative process. Surgical clips are seen in the left axilla. No signs of failure. The parenchym al changes in the right upper lobe appear improved as compared to the prior exam, as do the changes i n the bases. IMPRESSION: Patchy parenchymal lung changes appear improved as compared to the prior exam. No new process. POS: MARGO
[2017-07-08] MEDS: Aspirin 81 mg Enteric Coated Tablet PO SCH (09:35)
[2017-07-08] MEDS: metFORMIN 500 MG TAB PO SCH ×2 (09:35→16:13)
[2017-07-08] MEDS: Lactinex Tablet PO SCH (09:36)
[2017-07-08] MEDS: guaiFENesin ER 600 MG TAB PO SCH ×2 (09:36→21:15)
[2017-07-08] MEDS: Docusate 100 MG CAP PO SCH ×2 (09:37→21:16)
[2017-07-08] MEDS: Loratadine 10 MG TAB PO SCH (09:37)
[2017-07-08] MEDS: Saccharomyces boulardii 250 MG CAP PO SCH (09:37)
[2017-07-08] MEDS: Polyethylene Glycol 3350 17 GM Packet PO SCH ×2 (09:38→21:17)
[2017-07-08] MEDS: Glimepiride 2 MG TAB PO SCH (09:40)
[2017-07-08] MEDS: Citrucel 500 MG TAB PO SCH ×2 (09:40→21:12)
[2017-07-08] MEDS: Losartan 25 MG TAB PO SCH (09:49)
[2017-07-08] MEDS: traMADol HCl 50 MG TAB PO PRN ×2 (09:50→16:13)
[2017-07-08] MEDS: Ketotifen Fumarate 0.025% Ophth Soln 5 ml Bottle EA EYE SCH ×2 (09:53→21:17)
--- NOTE | 2017-07-08 10:44 | PDOC.PN ---
- Subjective Encounter Start Date: 07/08/17 Encounter Start Time: 09:40 Patient seen and examined. No new complaints. No overnight events today has GERD symptoms - Objective Resuscitation Status: Resuscitation Status DNR:Do Not Resuscitate MAR Reviewed: Yes Vital Signs & Weight: Vital Signs (12 hours) Temp Pulse Resp BP Pulse Ox 07/08/17 08:00 98.0 F 108 H 20 94 L 07/08/17 07:46 98.0 F 108 H 20 148/72 H 94 L 07/08/17 06:49 82 20 93 L 07/08/17 04:00 98.0 F 81 16 139/83 93 L 07/08/17 02:33 96 07/08/17 00:00 98.6 F 102 H 16 153/83 H 92 L Weight Weight 159 lb 8 oz I&O: 07/07/17 07/08/17 07/09/17 06:59 06:59 06:59 Intake Total 513 1100 Output Total 10 Balance 503 1100 Result Diagrams: 07/08/17 03:57 07/08/17 03:57 Additional Labs: Accuchecks 07/08/17 07/07/17 07/07/17 04:49 20:20 16:44 POC Glucose 277 H 138 H 121 H 07/07/17 07/07/17 11:39 08:00 POC Glucose 157 H 142 H Radiology Reviewed by me: Yes (chest xray) Phys Exam - Physical Examination Constitutional: NAD HEENT: PERRLA, moist MMs, sclera anicteric Neck: no JVD, supple Respiratory: no wheezing, no rales, no rhonchi Cardiovascular: RRR, no significant murmur, no rub Gastrointestinal: soft, non-tender, no distention, positive bowel sounds Musculoskeletal: no edema, pulses present Neurological: non-focal, normal sensation Psychiatric: normal affect, A&O x 3 Skin: no rash, normal turgor Dx/Plan (1) Acute respiratory failure with hypoxia Code(s): J96.01 - ACUTE RESPIRATORY FAILURE WITH HYPOXIA Status: Resolved (2) Healthcare associated bacterial pneumonia Code(s): J15.9 - UNSPECIFIED BACTERIAL PNEUMONIA Status: Acute (3) Sepsis with acute organ dysfunction Code(s): A41.9 - SEPSIS, UNSPECIFIED ORGANISM; R65.20 - SEVERE SEPSIS WITHOUT SEPTIC SHOCK Status: Acute (4) UTI (urinary tract infection) Status: Acute (5) Chronic anticoagulation Code(s): 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 Status: Chronic Comment: (6) Chronic atrial fibrillation Code(s): I48.2 - CHRONIC ATRIAL FIBRILLATION Status: Chronic Comment: (7) Diabetes type 2, controlled Code(s): E11.9 - TYPE 2 DIABETES MELLITUS WITHOUT COMPLICATIONS Status: Chronic Comment: (8) Diastolic heart failure Code(s): I50.30 - UNSPECIFIED DIASTOLIC (CONGESTIVE) HEART FAILURE Status: Chronic Qualifiers: Heart failure chronicity: chronic Qualified Code(s): I50.32 - Chronic diastolic (congestive) heart failure (9) Dyslipidemia Code(s): E78.5 - HYPERLIPIDEMIA, UNSPECIFIED Status: Chronic (10) Hypertension Code(s): I10 - ESSENTIAL (PRIMARY) HYPERTENSION Status: Chronic (11) Microcytic anemia Code(s): D50.9 - IRON DEFICIENCY ANEMIA, UNSPECIFIED Status: Chronic (12) Pulmonary hypertension Code(s): I27.2 - OTHER SECONDARY PULMONARY HYPERTENSION * DO NOT USE * Status : Chronic (13) Tricuspid regurgitation Code(s): I07.1 - RHEUMATIC TRICUSPID INSUFFICIENCY Status: Chronic - Plan cont current plan of care, continue antibiotics * pt has clinical improvement * will add triamcilone ointment for seborrhatic dermatitis * medication reviewed as below * symptomatic treatment * expecting discharge tomorrow. Review of Systems - Review of Systems Constitutional: negative: fever, chills, sweats, weakness, malaise, other ENT: negative: Ear Pain, Ear Discharge, Nose Pain, Nose Discharge, Nose Congestion, Mouth Pain, Mouth Swelling, Throat Pain, Throat Swelling, Other Respiratory: negative: Cough, Dry, Shortness of Breath, Hemoptysis, SOB with Excertion, Pleuritic Pain, Sputum, Wheezing Cardiovascular: negative: chest pain, palpitations, orthopnea, paroxysmal nocturnal dyspnea, edema, light headedness, other Gastrointestinal: Abdominal Pain. negative: Nausea, Vomiting, Diarrhea, Constipation, Melena, Hematochezia, Other Genitourinary: negative: Dysuria, Frequency, Incontinence, Hematuria, Retention , Other Musculoskeletal: negative: Neck Pain, Shoulder Pain, Arm Pain, Back Pain, Hand Pain, Leg Pain, Foot Pain, Other Skin: negative: Rash, Lesions, Aris, Bruising, Other - Medications/Allergies Allergies/Adverse Reactions: Allergies Allergy/AdvReac Type Severity Reaction Status Date / Time acetaminophen Allergy Verified 09/26/16 00:03 [From Darvocet-N 100] buspirone HCl [From BuSpar] Allergy Verified 09/26/16 00:03 cetirizine Allergy Verified 09/26/16 00:03 codeine Allergy Verified 09/26/16 00:03 hydrocodone bitartrate Allergy Verified 09/26/16 00:03 [From Vicodin] mirtazapine Allergy Verified 09/26/16 00:03 naproxen Allergy Verified 09/26/16 00:03 Opioids - Morphine Analogues Allergy Verified 04/26/17 07:23 propoxyphene Allergy Verified 09/26/16 00:03 [From Darvocet-N 100] verapamil Allergy Verified 09/26/16 00:03 ciprofloxacin [From Cipro] AdvReac Verified 04/26/17 10:18 morphine AdvReac Nausea Verified 09/26/16 00:03 Medications: Current Medications Acidophilus (Floranex) 1 tab PO DAILY [facility] Last Admin: 07/08/17 09:36 Dose: 1 tab Al Hydroxide/Mg Hydroxide (Maalox) 30 ml PO Q6H PRN PRN Reason: Heartburn or Indigestion Albuterol/Ipratropium (Duoneb) 3 ml NEB [id number] [facility] Last Admin: 07/08/17 06:49 Dose: 3 ml Artificial Tears (Tears Naturale) 0 drop EA EYE PRN PRN PRN Reason: Dry Eyes Aspirin (Ecotrin) 81 mg PO DAILY [facility] Last Admin: 07/08/17 09:35 Dose: 81 mg Atorvastatin Calcium (Lipitor) 20 mg PO HS [facility] Last Admin: 07/07/17 21:38 Dose: 20 mg Bisacodyl (Dulcolax) 10 mg PO HS [facility] Last Admin: 07/07/17 21:39 Dose: 10 mg Calcium Carbonate (Tums) 1,000 mg PO BID [facility] Dextrose/Water (Dextrose 50%) 25 gm SLOW IVP PRN PRN PRN Reason: Hypoglycemia Diltiazem HCl (Cardizem Cd) 180 mg PO BID [facility] Last Admin: 07/08/17 09:37 Dose: 180 mg Diphenhydramine HCl (Benadryl) 25 mg PO [facility] Last Admin: 07/07/17 21:40 Dose: Not Given Docusate Sodium (Colace) 100 mg PO BID [facility] Last Admin: 07/08/17 09:37 Dose: 100 mg Furosemide (Lasix) 20 mg SLOW IVP 0600,1400 [facility] Last Admin: 07/08/17 06:30 Dose: 20 mg Glimepiride (Amaryl) 2 mg PO QAM-WM [facility] Last Admin: 07/08/17 09:40 Dose: 2 mg Glucagon (Glucagon) 1 mg IM PRN PRN PRN Reason: Hypoglycemia Guaifenesin (Robitussin Sf) 200 mg PO Q4H PRN PRN Reason: Cough Last Admin: 07/07/17 03:59 Dose: 200 mg Guaifenesin (Mucinex) 600 mg PO Q12HR [facility] Last Admin: 07/08/17 09:36 Dose: 600 mg Hydralazine HCl (Apresoline) 10 mg SLOW IVP Q4H PRN PRN Reason: Systolic BP > 180 Hydralazine HCl (Apresoline) 10 mg PO [facility] Last Admin: 07/07/17 21:42 Dose: 10 mg Hydroxyzine HCl (Atarax) 25 mg PO Q6H PRN PRN Reason: .ITCHING Last Admin: 07/07/17 21:46 Dose: 25 mg Dextrose/Water (D5w) 1,000 mls @ 0 mls/hr IV .Q0M PRN; As Directed PRN Reason: Hypoglycemia Levofloxacin 750 mg/ Device 150 mls @ 100 mls/hr IVPB Q2D@1300 [facility] Last Admin: 07/07/17 14:06 Dose: 150 mls Vancomycin HCl 750 mg/ Sodium (Chloride) 250 mls @ 250 mls/hr IVPB 1100,2300 [facility] Last Admin: 07/07/17 23:14 Dose: 250 mls Cefepime HCl 2 gm/ Syringe 2.5 (ml/ Sterile Water) 12.5 mls @ 150 mls/hr SLOW IVP 0100,1300 [facility] Last Admin: 07/08/17 01:16 Dose: 12.5 mls Insulin Human Lispro (Humalog) 0 units SC .MODERATE SLIDING SC PRN PRN Reason: Moderate Correctional Scale Insulin Human Lispro (Humalog) 0 units SC .BEDTIME SLIDING SC PRN PRN Reason: Bedtime Correctional Scale Ketotifen Fumarate (Zaditor 0.025% Ophth Soln) 1 drop EA EYE BID [facility] Last Admin: 07/08/17 09:53 Dose: 1 drop Loperamide HCl (Imodium) 2 mg PO PRN PRN PRN Reason: Diarrhea/Loose Stools Loratadine (Claritin) 10 mg PO DAILY [facility] Last Admin: 07/08/17 09:37 Dose: 10 mg Losartan Potassium (Cozaar) 100 mg PO DAILY [facility] Last Admin: 07/08/17 09:49 Dose: 100 mg Magnesium Hydroxide (Milk Of Magnesium) 30 ml PO DAILYPRN PRN PRN Reason: Constipation Metformin HCl (Glucophage) 500 mg PO BID[facility] Last Admin: 07/08/17 09:35 Dose: 500 mg Methylcellulose (Citrucel) 500 mg PO BID [facility] Last Admin: 07/08/17 09:40 Dose: 500 mg Metoprolol Succinate (Toprol Xl) 100 mg PO BID [facility] Last Admin: 07/08/17 09:38 Dose: 100 mg Mineral Oil/White Petrolatum (Eucerin Cream) 0 gm TOP BIDPRN PRN PRN Reason: Dry Skin Last Admin: 07/06/17 20:49 Dose: 1 applic Miscellaneous Medication (Pharmacy To Dose) 1 each IVPB .VANCOMYCIN [facility] Ondansetron HCl (Zofran Odt) 4 mg PO Q6H PRN PRN Reason: Nausea/Vomiting Ondansetron HCl (Zofran) 4 mg IVP Q6H PRN PRN Reason: Nausea/Vomiting Pantoprazole Sodium (Protonix) 40 mg PO DAILY [facility] Last Admin: 07/08/17 09:38 Dose: 40 mg Phenol (Chloraseptic [place] 180 Ml Bot) 0 ml PO PRN PRN PRN Reason: Sore Throat Polyethylene Glycol (Miralax) 17 gm PO BID [facility] Last Admin: 07/08/17 09:38 Dose: 17 gm Rivaroxaban (Xarelto) 15 mg PO HS [facility] Last Admin: 07/07/17 21:48 Dose: 15 mg Saccharomyces Boulardii (Florastor) 250 mg PO DAILY [facility] Last Admin: 07/08/17 09:37 Dose: 250 mg Senna (Senokot) 2 tab PO HSPRN PRN PRN Reason: Constipation Sertraline HCl (Zoloft) 50 mg PO DAILY [facility] Last Admin: 07/08/17 09:36 Dose: 50 mg Sodium Chloride ([place] Nasal [place] 0.65%) 0 ml EA NARE QIDPRN PRN PRN Reason: Nasal Congestion Sodium Chloride (Flush - Normal Saline) 10 ml IVF Q12HR [facility] Sodium Chloride (Flush - Normal Saline) 10 ml IVF PRN PRN PRN Reason: Saline Flush Temazepam (Restoril) 15 mg PO HS [facility] Last Admin: 07/07/17 21:38 Dose: 15 mg Tramadol HCl (Ultram) 50 mg PO Q6HR PRN PRN Reason: Pain Last Admin: 07/08/17 09:50 Dose: 50 mg Trazodone HCl (Desyrel) 100 mg PO [facility] Last Admin: 07/07/17 21:41 Dose: 100 mg Triamcinolone Acetonide (Kenalog 0.1% Ointment) 1 gm TOP BID [facility]
[2017-07-08] MEDS: hydrOXYzine 25 MG TAB PO PRN ×2 (11:54→21:34)
[2017-07-08] MEDS: Vancomycin HCl 750 MG in Sodium Chloride 0.9% 250 ML 250 ML IVPB SCH (11:56)
[2017-07-08] MEDS: HumaLOG 300 UNITS/3 ML VIAL SC PRN ×2 (12:08→17:50)
[2017-07-08] MEDS: Calcium Carbonate 500 MG ChewTAB PO SCH (21:12)
[2017-07-08] MEDS: traZODone HCl 50 MG TAB PO SCH (21:13)
[2017-07-08] MEDS: hydrALAZINE 10 MG TAB PO SCH (21:13)
[2017-07-08] MEDS: Bisacodyl 5 MG TAB PO SCH (21:14)
[2017-07-08] MEDS: Rivaroxaban 15 MG TAB PO SCH (21:15)
[2017-07-08] MEDS: diphenhydrAMINE 25 MG CAP PO SCH (21:15)
[2017-07-08] MEDS: Temazepam 15 MG CAP PO SCH (21:16)
[2017-07-08] MEDS: Atorvastatin Calcium 20 MG TAB PO SCH (21:17)
[2017-07-08 22:18] LABS: Vancomycin, Trough 21.1 ug/mL
[2017-07-09] MEDS: Cefepime 2 GM, Syringe 2.5 ML in Sterile Water 10 ML SLOW IVP SCH ×2 (00:49→12:00)
[2017-07-09] MEDS: Vancomycin HCl 1.5 GM in Sodium Chloride 0.9% 250 ML 300 ML IVPB SCH (04:30)
[2017-07-09] MEDS: Furosemide 20 MG/2 ML VIAL SLOW IVP SCH ×2 (06:15→13:54)
[2017-07-09] MEDS: Ketotifen Fumarate 0.025% Ophth Soln 5 ml Bottle EA EYE SCH ×2 (08:06→20:28)
[2017-07-09] MEDS: Lactinex Tablet PO SCH (08:07)
[2017-07-09] MEDS: Loratadine 10 MG TAB PO SCH (08:07)
[2017-07-09] MEDS: Saccharomyces boulardii 250 MG CAP PO SCH (08:07)
[2017-07-09] MEDS: guaiFENesin ER 600 MG TAB PO SCH ×2 (08:07→20:21)
[2017-07-09] MEDS: Losartan 25 MG TAB PO SCH (08:07)
[2017-07-09] MEDS: Docusate 100 MG CAP PO SCH ×2 (08:07→20:22)
[2017-07-09] MEDS: Polyethylene Glycol 3350 17 GM Packet PO SCH ×2 (08:07→20:27)
[2017-07-09] MEDS: metFORMIN 500 MG TAB PO SCH ×2 (08:08→16:25)
[2017-07-09] MEDS: Calcium Carbonate 500 MG ChewTAB PO SCH ×2 (08:08→20:27)
[2017-07-09] MEDS: Aspirin 81 mg Enteric Coated Tablet PO SCH (08:08)
[2017-07-09] MEDS: Glimepiride 2 MG TAB PO SCH (08:08)
[2017-07-09] MEDS: Citrucel 500 MG TAB PO SCH ×2 (08:09→20:27)
[2017-07-09] MEDS: traMADol HCl 50 MG TAB PO PRN ×2 (08:15→14:57)
[2017-07-09 08:48] LABS: Hemoglobin 11.4 g/dL (12.0-16.0); Mean Corpuscular HGB CONC 30.7 g/dL (32.0-36.0); Mean Corpuscular Hemoglobin 24.5 pg (27.0-31.0); Mean Corpuscular Volume 79.8 fl (81.0-99.0); Mean Platelet Volume 7.2 fL (7.4-10.4); Platelet Count 406 thou/uL (130-400); RBC Distribution Width 14.2 % (11.5-14.5); Red Blood Cell (RBC) Count 4.64 mill/uL (4.20-5.40); White Blood Cell (WBC) Count 24.6 thou/uL (4.8-10.8)
[2017-07-09 08:57] LABS: Anion Gap 16 mmol/L (10-20); BUN (Urea Nitrogen) 33 mg/dL (9.8-20.1); Calc. Creatinine Clearance 44 mL/min (70-130); Calcium 9.4 mg/dL (7.8-10.44); Carbon Dioxide 30 mmol/L (23-31); Chloride 95 mmol/L (98-107); Estimated GFR-MDRD 46; Glucose 195 mg/dL (83-110); Potassium 3.5 mmol/L (3.5-5.1); Sodium 137 mmol/L (136-145)
[2017-07-09 09:26] LABS: Band 3 % (5-11); Hypochromia SLIGHT = 6-15 cells (100X) (0-5/hpf); Lymphocytes 9 % (21-51); MDiff Complete? YES; Microcytosis SLIGHT = 6-15 cells (100X) (0-5/hpf); Monocytes 2 % (0-10); Neutrophil 85 % (42-75); Polychromasia SLIGHT = 2-3 cells (100X) (0-2/hpf); Promyelocytes 1 % (0-0)
--- NOTE | 2017-07-09 10:01 | PDOC.PN ---
- Subjective Encounter Start Date: 07/09/17 Encounter Start Time: 08:30 Patient seen and examined. No new complaints. No overnight events - Objective Resuscitation Status: Resuscitation Status DNR:Do Not Resuscitate MAR Reviewed: Yes Vital Signs & Weight: Vital Signs (12 hours) Temp Pulse Resp BP Pulse Ox 07/09/17 08:00 97.6 F 85 20 132/57 L 95 07/09/17 06:28 70 16 07/09/17 04:00 97.9 F 63 20 120/79 94 L 07/09/17 00:00 98.0 F 87 20 136/66 92 L Weight Weight 159 lb 8 oz I&O: 07/08/17 07/09/17 07/10/17 06:59 06:59 06:59 Intake Total 1100 750 Balance 1100 750 Result Diagrams: 07/09/17 08:31 07/09/17 08:31 Additional Labs: Accuchecks 07/09/17 07/08/17 07/08/17 05:03 19:51 16:26 POC Glucose 219 H 213 H 274 H 07/08/17 12:01 POC Glucose 331 H Phys Exam - Physical Examination Constitutional: NAD HEENT: PERRLA, moist MMs, sclera anicteric Neck: no JVD, supple Respiratory: no wheezing, no rales, no rhonchi Cardiovascular: RRR, no significant murmur, no rub Gastrointestinal: soft, non-tender, no distention, positive bowel sounds Musculoskeletal: no edema, pulses present Neurological: non-focal, normal sensation Psychiatric: normal affect, A&O x 3 Skin: no rash, normal turgor Dx/Plan (1) Acute respiratory failure with hypoxia Code(s): J96.01 - ACUTE RESPIRATORY FAILURE WITH HYPOXIA Status: Resolved (2) Healthcare associated bacterial pneumonia Code(s): J15.9 - UNSPECIFIED BACTERIAL PNEUMONIA Status: Acute (3) Sepsis with acute organ dysfunction Code(s): A41.9 - SEPSIS, UNSPECIFIED ORGANISM; R65.20 - SEVERE SEPSIS WITHOUT SEPTIC SHOCK Status: Acute (4) UTI (urinary tract infection) Status: Acute (5) Chronic anticoagulation Code(s): Z79.01 - 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 OF ANTICOAGULANTS Status: Chronic Comment: (6) Chronic atrial fibrillation Code(s): I48.2 - CHRONIC ATRIAL FIBRILLATION Status: Chronic Comment: (7) Diabetes type 2, controlled Code(s): E11.9 - TYPE 2 DIABETES MELLITUS WITHOUT COMPLICATIONS Status: Chronic Comment: (8) Diastolic heart failure Code(s): I50.30 - UNSPECIFIED DIASTOLIC (CONGESTIVE) HEART FAILURE Status: Chronic Qualifiers: Heart failure chronicity: chronic Qualified Code(s): I50.32 - Chronic diastolic (congestive) heart failure (9) Dyslipidemia Code(s): E78.5 - HYPERLIPIDEMIA, UNSPECIFIED Status: Chronic (10) Hypertension Code(s): I10 - ESSENTIAL (PRIMARY) HYPERTENSION Status: Chronic (11) Microcytic anemia Code(s): D50.9 - IRON DEFICIENCY ANEMIA, UNSPECIFIED Status: Chronic (12) Pulmonary hypertension Code(s): I27.2 - OTHER SECONDARY PULMONARY HYPERTENSION * DO NOT USE * Status : Chronic (13) Tricuspid regurgitation Code(s): I07.1 - RHEUMATIC TRICUSPID INSUFFICIENCY Status: Chronic - Plan cont current plan of care, continue antibiotics, 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 Review of Systems - Review of Systems ENT: negative: Ear Pain, Ear Discharge, Nose Pain, Nose Discharge, Nose Congestion, Mouth Pain, Mouth Swelling, Throat Pain, Throat Swelling, Other Respiratory: negative: Cough, Dry, Shortness of Breath, Hemoptysis, SOB with Excertion, Pleuritic Pain, Sputum, Wheezing Cardiovascular: negative: chest pain, palpitations, orthopnea, paroxysmal nocturnal dyspnea, edema, light headedness, other Gastrointestinal: negative: Nausea, Vomiting, Abdominal Pain, Diarrhea, Constipation, Melena, Hematochezia, Other Genitourinary: negative: Dysuria, Frequency, Incontinence, Hematuria, Retention , Other Musculoskeletal: negative: Neck Pain, Shoulder Pain, Arm Pain, Back Pain, Hand Pain, Leg Pain, Foot Pain, Other - Medications/Allergies Allergies/Adverse Reactions: Allergies Allergy/AdvReac Type Severity Reaction Status Date / Time acetaminophen Allergy Verified 09/26/16 00:03 [From Darvocet-N 100] buspirone HCl [From BuSpar] Allergy Verified 09/26/16 00:03 cetirizine Allergy Verified 09/26/16 00:03 codeine Allergy Verified 09/26/16 00:03 hydrocodone bitartrate Allergy Verified 09/26/16 00:03 [From Vicodin] mirtazapine Allergy Verified 09/26/16 00:03 naproxen Allergy Verified 09/26/16 00:03 Opioids - Morphine Analogues Allergy Verified 04/26/17 07:23 propoxyphene Allergy Verified 09/26/16 00:03 [From Darvocet-N 100] verapamil Allergy Verified 09/26/16 00:03 ciprofloxacin [From Cipro] AdvReac Verified 04/26/17 10:18 morphine AdvReac Nausea Verified 09/26/16 00:03 Medications: Current Medications Acidophilus (Floranex) 1 tab PO DAILY [facility] Last Admin: 07/09/17 08:07 Dose: 1 tab Al Hydroxide/Mg Hydroxide (Maalox) 30 ml PO Q6H PRN PRN Reason: Heartburn or Indigestion Albuterol/Ipratropium (Duoneb) 3 ml NEB [id number] [facility] Last Admin: 07/09/17 06:28 Dose: 3 ml Artificial Tears (Tears Naturale) 0 drop EA EYE PRN PRN PRN Reason: Dry Eyes Aspirin (Ecotrin) 81 mg PO DAILY [facility] Last Admin: 07/09/17 08:08 Dose: 81 mg Atorvastatin Calcium (Lipitor) 20 mg PO HS [facility] Last Admin: 07/08/17 21:17 Dose: 20 mg Bisacodyl (Dulcolax) 10 mg PO HS [facility] Last Admin: 07/08/17 21:14 Dose: 10 mg Calcium Carbonate (Tums) 1,000 mg PO BID [facility] Last Admin: 07/09/17 08:08 Dose: 1,000 mg Dextrose/Water (Dextrose 50%) 25 gm SLOW IVP PRN PRN PRN Reason: Hypoglycemia Diltiazem HCl (Cardizem Cd) 180 mg PO BID [facility] Last Admin: 07/09/17 08:08 Dose: 180 mg Diphenhydramine HCl (Benadryl) 25 mg PO HS [facility] Last Admin: 07/08/17 21:15 Dose: Not Given Docusate Sodium (Colace) 100 mg PO BID [facility] Last Admin: 07/09/17 08:07 Dose: 100 mg Furosemide (Lasix) 20 mg SLOW IVP 0600,1400 [facility] Last Admin: 07/09/17 06:15 Dose: 20 mg Glimepiride (Amaryl) 2 mg PO QAM-WM [facility] Last Admin: 07/09/17 08:08 Dose: 2 mg Glucagon (Glucagon) 1 mg IM PRN PRN PRN Reason: Hypoglycemia Guaifenesin (Robitussin Sf) 200 mg PO Q4H PRN PRN Reason: Cough Last Admin: 07/07/17 03:59 Dose: 200 mg Guaifenesin (Mucinex) 600 mg PO Q12HR [facility] Last Admin: 07/09/17 08:07 Dose: 600 mg Hydralazine HCl (Apresoline) 10 mg SLOW IVP Q4H PRN PRN Reason: Systolic BP > 180 Hydralazine HCl (Apresoline) 10 mg PO HS [facility] Last Admin: 07/08/17 21:13 Dose: 10 mg Hydroxyzine HCl (Atarax) 25 mg PO Q6H PRN PRN Reason: .ITCHING Last Admin: 07/08/17 21:34 Dose: 25 mg Dextrose/Water (D5w) 1,000 mls @ 0 mls/hr IV .Q0M PRN; As Directed PRN Reason: Hypoglycemia Levofloxacin 750 mg/ Device 150 mls @ 100 mls/hr IVPB Q2D@1300 [facility] Last Admin: 07/07/17 14:06 Dose: 150 mls Cefepime HCl 2 gm/ Syringe 2.5 (ml/ Sterile Water) 12.5 mls @ 150 mls/hr SLOW IVP 0100,1300 [facility] Last Admin: 07/09/17 00:49 Dose: 12.5 mls Vancomycin HCl 1.5 gm/ Sodium (Chloride) 300 mls @ 200 mls/hr IVPB Q24HR@0400 [facility] Last Admin: 07/09/17 04:30 Dose: 300 mls Insulin Human Lispro (Humalog) 0 units SC .MODERATE SLIDING SC PRN PRN Reason: Moderate Correctional Scale Last Admin: 07/08/17 17:50 Dose: 6 unit Insulin Human Lispro (Humalog) 0 units SC .BEDTIME SLIDING SC PRN PRN Reason: Bedtime Correctional Scale Ketotifen Fumarate (Zaditor 0.025% Ophth Soln) 1 drop EA EYE BID [facility] Last Admin: 07/09/17 08:06 Dose: 1 drop Loperamide HCl (Imodium) 2 mg PO PRN PRN PRN Reason: Diarrhea/Loose Stools Loratadine (Claritin) 10 mg PO DAILY [facility] Last Admin: 07/09/17 08:07 Dose: 10 mg Losartan Potassium (Cozaar) 100 mg PO DAILY [facility] Last Admin: 07/09/17 08:07 Dose: 100 mg Magnesium Hydroxide (Milk Of Magnesium) 30 ml PO DAILYPRN PRN PRN Reason: Constipation Metformin HCl (Glucophage) 500 mg PO BID-[facility] Last Admin: 07/09/17 08:08 Dose: 500 mg Methylcellulose (Citrucel) 500 mg PO BID [facility] Last Admin: 07/09/17 08:09 Dose: 500 mg Metoprolol Succinate (Toprol Xl) 100 mg PO BID [facility] Last Admin: 07/09/17 08:07 Dose: 100 mg Mineral Oil/White Petrolatum (Eucerin Cream) 0 gm TOP BIDPRN PRN PRN Reason: Dry Skin Last Admin: 07/06/17 20:49 Dose: 1 applic Miscellaneous Medication (Pharmacy To Dose) 1 each IVPB .VANCOMYCIN [facility] Ondansetron HCl (Zofran Odt) 4 mg PO Q6H PRN PRN Reason: Nausea/Vomiting Ondansetron HCl (Zofran) 4 mg IVP Q6H PRN PRN Reason: Nausea/Vomiting Pantoprazole Sodium (Protonix) 40 mg PO DAILY [facility] Last Admin: 07/09/17 06:14 Dose: 40 mg Phenol (Chloraseptic [place] 180 Ml Bot) 0 ml PO PRN PRN PRN Reason: Sore Throat Polyethylene Glycol (Miralax) 17 gm PO BID [facility] Last Admin: 07/09/17 08:07 Dose: 17 gm Rivaroxaban (Xarelto) 15 mg PO HS [facility] Last Admin: 07/08/17 21:15 Dose: 15 mg Saccharomyces Boulardii (Florastor) 250 mg PO DAILY [facility] Last Admin: 07/09/17 08:07 Dose: 250 mg Senna (Senokot) 2 tab PO HSPRN PRN PRN Reason: Constipation Sertraline HCl (Zoloft) 50 mg PO DAILY [facility] Last Admin: 07/09/17 08:07 Dose: 50 mg Sodium Chloride ([place] Nasal [place] 0.65%) 0 ml EA NARE QIDPRN PRN PRN Reason: Nasal Congestion Sodium Chloride (Flush - Normal Saline) 10 ml IVF Q12HR [facility] Last Admin: 07/09/17 08:37 Dose: 10 ml Sodium Chloride (Flush - Normal Saline) 10 ml IVF PRN PRN PRN Reason: Saline Flush Temazepam (Restoril) 15 mg PO [facility] Last Admin: 07/08/17 21:16 Dose: 15 mg Tramadol HCl (Ultram) 50 mg PO Q6HR PRN PRN Reason: Pain Last Admin: 07/09/17 08:15 Dose: 50 mg Trazodone HCl (Desyrel) 100 mg PO [facility] Last Admin: 07/08/17 21:13 Dose: 100 mg Triamcinolone Acetonide (Kenalog 0.1% Ointment) 1 gm TOP BID [facility] Last Admin: 07/09/17 08:08 Dose: 1 gm
[2017-07-09] MEDS: HumaLOG 300 UNITS/3 ML VIAL SC PRN (11:45)
[2017-07-09] MEDS: Temazepam 15 MG CAP PO SCH (20:22)
[2017-07-09] MEDS: traZODone HCl 50 MG TAB PO SCH (20:22)
[2017-07-09] MEDS: Bisacodyl 5 MG TAB PO SCH (20:25)
[2017-07-09] MEDS: diphenhydrAMINE 25 MG CAP PO SCH (20:25)
[2017-07-09] MEDS: Atorvastatin Calcium 20 MG TAB PO SCH (20:25)
[2017-07-09] MEDS: Rivaroxaban 15 MG TAB PO SCH (20:27)
[2017-07-09] MEDS: hydrALAZINE 10 MG TAB PO SCH (20:40)
[2017-07-10] MEDS: Cefepime 2 GM, Syringe 2.5 ML in Sterile Water 10 ML SLOW IVP SCH ×2 (01:36→12:57)
[2017-07-10] MEDS: Vancomycin HCl 1.5 GM in Sodium Chloride 0.9% 250 ML 300 ML IVPB SCH (04:28)
[2017-07-10] MEDS: Furosemide 20 MG/2 ML VIAL SLOW IVP SCH ×2 (05:34→13:01)
[2017-07-10] MEDS: traMADol HCl 50 MG TAB PO PRN ×3 (05:43→23:13)
[2017-07-10] MEDS: Calcium Carbonate 500 MG ChewTAB PO SCH ×2 (07:39→20:48)
[2017-07-10] MEDS: Citrucel 500 MG TAB PO SCH ×2 (07:39→20:52)
[2017-07-10] MEDS: Lactinex Tablet PO SCH (07:39)
[2017-07-10] MEDS: Docusate 100 MG CAP PO SCH ×2 (07:40→20:51)
[2017-07-10] MEDS: guaiFENesin ER 600 MG TAB PO SCH ×2 (07:40→20:49)
[2017-07-10] MEDS: Saccharomyces boulardii 250 MG CAP PO SCH (07:40)
[2017-07-10] MEDS: Aspirin 81 mg Enteric Coated Tablet PO SCH (07:40)
[2017-07-10] MEDS: Loratadine 10 MG TAB PO SCH (07:40)
[2017-07-10] MEDS: Losartan 25 MG TAB PO SCH (07:40)
[2017-07-10] MEDS: Glimepiride 2 MG TAB PO SCH (07:41)
[2017-07-10] MEDS: Ketotifen Fumarate 0.025% Ophth Soln 5 ml Bottle EA EYE SCH ×2 (07:41→20:55)
[2017-07-10] MEDS: metFORMIN 500 MG TAB PO SCH ×2 (07:41→16:45)
[2017-07-10] MEDS: Polyethylene Glycol 3350 17 GM Packet PO SCH ×2 (07:41→20:56)
[2017-07-10 08:55] LABS: #Basophils 0.1 thou/uL (0.0-0.2); #Eosinphils 0.5 thou/uL (0.0-0.7); #Lymphocytes 1.4 thou/uL (1.20-3.40); #Monocytes 1.2 thou/uL (0.11-0.59); %Basophils 0.4 % (0.0-1.0); %Eosinophils 2.6 % (0.0-10.0); %Lymphocytes 7.9 % (21.0-51.0); %Monocytes 6.6 % (0.0-10.0); %Neutrophils 82.5 % (42.0-75.0); Hemoglobin 11.3 g/dL (12.0-16.0); Mean Corpuscular HGB CONC 31.3 g/dL (32.0-36.0); Mean Corpuscular Hemoglobin 24.5 pg (27.0-31.0); Mean Corpuscular Volume 78.3 fl (81.0-99.0); Platelet Count 374 thou/uL (130-400); RBC Distribution Width 14.1 % (11.5-14.5); Red Blood Cell (RBC) Count 4.63 mill/uL (4.20-5.40); White Blood Cell (WBC) Count 18.2 thou/uL (4.8-10.8)
--- NOTE | 2017-07-10 10:39 | PDOC.PN ---
- Subjective Encounter Start Date: 07/10/17 Encounter Start Time: 08:50 Patient seen and examined. No new complaints. No overnight events - Objective Resuscitation Status: Resuscitation Status DNR:Do Not Resuscitate MAR Reviewed: Yes Vital Signs & Weight: Vital Signs (12 hours) Temp Pulse Resp BP Pulse Ox 07/10/17 09:15 98.3 F 76 16 144/83 H 97 07/10/17 08:00 97.9 F 73 12 07/10/17 06:53 93 L 07/10/17 06:51 73 12 07/10/17 04:00 97.8 F 73 20 161/80 H 93 L 07/10/17 00:00 97.8 F 87 20 165/77 H 94 L Weight Weight 159 lb 8 oz I&O: 07/09/17 07/10/17 07/11/17 06:59 06:59 06:59 Intake Total 750 800 Balance 750 800 Result Diagrams: 07/10/17 08:25 07/09/17 08:31 Additional Labs: Accuchecks 07/10/17 07/09/17 07/09/17 05:14 19:55 17:53 POC Glucose 213 H 108 75 07/09/17 07/09/17 16:09 11:29 POC Glucose 101 221 H Radiology Reviewed by me: Yes (echo) Phys Exam - Physical Examination Constitutional: NAD HEENT: PERRLA, moist MMs, sclera anicteric Neck: no JVD, supple Respiratory: no wheezing, no rales, no rhonchi Cardiovascular: no significant murmur, no rub, irregular Gastrointestinal: soft, non-tender, no distention, positive bowel sounds Musculoskeletal: no edema, pulses present Neurological: non-focal, normal sensation, moves all 4 limbs Psychiatric: normal affect Skin: no rash, normal turgor Dx/Plan (1) Acute respiratory failure with hypoxia Code(s): J96.01 - ACUTE RESPIRATORY FAILURE WITH HYPOXIA Status: Resolved (2) Healthcare associated bacterial pneumonia Code(s): J15.9 - UNSPECIFIED BACTERIAL PNEUMONIA Status: Acute (3) Sepsis with acute organ dysfunction Code(s): A41.9 - SEPSIS, UNSPECIFIED ORGANISM; R65.20 - SEVERE SEPSIS WITHOUT SEPTIC SHOCK Status: Acute (4) UTI (urinary tract infection) Status: Acute (5) Chronic anticoagulation Code(s): Z79.01 - FPC (CURRENT) USE OF ANTICOAGULANTS Status: Chronic Comment: (6) Chronic atrial fibrillation Code(s): I48.2 - CHRONIC ATRIAL FIBRILLATION Status: Chronic Comment: (7) Diabetes type 2, controlled Code(s): E11.9 - TYPE 2 DIABETES MELLITUS WITHOUT COMPLICATIONS Status: Chronic Comment: (8) Diastolic heart failure Code(s): I50.30 - UNSPECIFIED DIASTOLIC (CONGESTIVE) HEART FAILURE Status: Chronic Qualifiers: Heart failure chronicity: chronic Qualified Code(s): I50.32 - Chronic diastolic (congestive) heart failure (9) Dyslipidemia Code(s): E78.5 - HYPERLIPIDEMIA, UNSPECIFIED Status: Chronic (10) Hypertension Code(s): I10 - ESSENTIAL (PRIMARY) HYPERTENSION Status: Chronic (11) Microcytic anemia Code(s): D50.9 - IRON DEFICIENCY ANEMIA, UNSPECIFIED Status: Chronic (12) Pulmonary hypertension Code(s): I27.2 - OTHER SECONDARY PULMONARY HYPERTENSION * DO NOT USE * Status : Chronic (13) Tricuspid regurgitation Code(s): I07.1 - RHEUMATIC TRICUSPID INSUFFICIENCY Status: Chronic - Plan cont current plan of care, continue antibiotics, respiratory therapy * 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 Review of Systems - Review of Systems ENT: negative: Ear Pain, Ear Discharge, Nose Pain, Nose Discharge, Nose Congestion, Mouth Pain, Mouth Swelling, Throat Pain, Throat Swelling, Other Respiratory: negative: Cough, Dry, Shortness of Breath, Hemoptysis, SOB with Excertion, Pleuritic Pain, Sputum, Wheezing Cardiovascular: negative: chest pain, palpitations, orthopnea, paroxysmal nocturnal dyspnea, edema, light headedness, other Gastrointestinal: negative: Nausea, Vomiting, Abdominal Pain, Diarrhea, Constipation, Melena, Hematochezia, Other Genitourinary: negative: Dysuria, Frequency, Incontinence, Hematuria, Retention , Other Musculoskeletal: negative: Neck Pain, Shoulder Pain, Arm Pain, Back Pain, Hand Pain, Leg Pain, Foot Pain, Other - Medications/Allergies Allergies/Adverse Reactions: Allergies Allergy/AdvReac Type Severity Reaction Status Date / Time acetaminophen Allergy Verified 09/26/16 00:03 [From Darvocet-N 100] buspirone HCl [From BuSpar] Allergy Verified 09/26/16 00:03 cetirizine Allergy Verified 09/26/16 00:03 codeine Allergy Verified 09/26/16 00:03 hydrocodone bitartrate Allergy Verified 09/26/16 00:03 [From Vicodin] mirtazapine Allergy Verified 09/26/16 00:03 naproxen Allergy Verified 09/26/16 00:03 Opioids - Morphine Analogues Allergy Verified 04/26/17 07:23 propoxyphene Allergy Verified 09/26/16 00:03 [From Darvocet-N 100] verapamil Allergy Verified 09/26/16 00:03 ciprofloxacin [From Cipro] AdvReac Verified 04/26/17 10:18 morphine AdvReac Nausea Verified 09/26/16 00:03 Medications: Current Medications Acidophilus (Floranex) 1 tab PO DAILY [facility] Last Admin: 07/10/17 07:39 Dose: 1 tab Al Hydroxide/Mg Hydroxide (Maalox) 30 ml PO Q6H PRN PRN Reason: Heartburn or Indigestion Albuterol/Ipratropium (Duoneb) 3 ml NEB [id number] [facility] Last Admin: 07/10/17 06:51 Dose: 3 ml Artificial Tears (Tears Naturale) 0 drop EA EYE PRN PRN PRN Reason: Dry Eyes Aspirin (Ecotrin) 81 mg PO DAILY [facility] Last Admin: 07/10/17 07:40 Dose: 81 mg Atorvastatin Calcium (Lipitor) 20 mg PO HS [facility] Last Admin: 07/09/17 20:25 Dose: 20 mg Bisacodyl (Dulcolax) 10 mg PO HS [facility] Last Admin: 07/09/17 20:25 Dose: 10 mg Calcium Carbonate (Tums) 1,000 mg PO BID [facility] Last Admin: 07/10/17 07:39 Dose: 1,000 mg Dextrose/Water (Dextrose 50%) 25 gm SLOW IVP PRN PRN PRN Reason: Hypoglycemia Diltiazem HCl (Cardizem Cd) 180 mg PO BID [facility] Last Admin: 07/10/17 07:39 Dose: 180 mg Diphenhydramine HCl (Benadryl) 25 mg PO HS [facility] Last Admin: 07/09/17 20:25 Dose: Not Given Docusate Sodium (Colace) 100 mg PO BID [facility] Last Admin: 07/10/17 07:40 Dose: 100 mg Furosemide (Lasix) 20 mg SLOW IVP 0600,1400 [facility] Last Admin: 07/10/17 05:34 Dose: 20 mg Glimepiride (Amaryl) 2 mg PO QAM-WM [facility] Last Admin: 07/10/17 07:41 Dose: Not Given Glucagon (Glucagon) 1 mg IM PRN PRN PRN Reason: Hypoglycemia Guaifenesin (Robitussin Sf) 200 mg PO Q4H PRN PRN Reason: Cough Last Admin: 07/07/17 03:59 Dose: 200 mg Guaifenesin (Mucinex) 600 mg PO Q12HR [facility] Last Admin: 07/10/17 07:40 Dose: 600 mg Hydralazine HCl (Apresoline) 10 mg SLOW IVP Q4H PRN PRN Reason: Systolic BP > 180 Hydralazine HCl (Apresoline) 10 mg PO HS [facility] Last Admin: 07/09/17 20:40 Dose: 10 mg Hydroxyzine HCl (Atarax) 25 mg PO Q6H PRN PRN Reason: .ITCHING Last Admin: 07/08/17 21:34 Dose: 25 mg Dextrose/Water (D5w) 1,000 mls @ 0 mls/hr IV .Q0M PRN; As Directed PRN Reason: Hypoglycemia Levofloxacin 750 mg/ Device 150 mls @ 100 mls/hr IVPB Q2D@1300 [facility] Last Admin: 07/09/17 12:10 Dose: 150 mls Cefepime HCl 2 gm/ Syringe 2.5 (ml/ Sterile Water) 12.5 mls @ 150 mls/hr SLOW IVP 0100,1300 [facility] Last Admin: 07/10/17 01:36 Dose: 12.5 mls Vancomycin HCl 1.5 gm/ Sodium (Chloride) 300 mls @ 200 mls/hr IVPB Q24HR@0400 [facility] Last Admin: 07/10/17 04:28 Dose: 300 mls Insulin Human Lispro (Humalog) 0 units SC .MODERATE SLIDING SC PRN PRN Reason: Moderate Correctional Scale Last Admin: 07/09/17 11:45 Dose: 4 unit Insulin Human Lispro (Humalog) 0 units SC .BEDTIME SLIDING SC PRN PRN Reason: Bedtime Correctional Scale Ketotifen Fumarate (Zaditor 0.025% Oph Soln) 1 drop EA EYE BID [facility] Last Admin: 07/10/17 07:41 Dose: 1 drop Loperamide HCl (Imodium) 2 mg PO PRN PRN PRN Reason: Diarrhea/Loose Stools Loratadine (Claritin) 10 mg PO DAILY [facility] Last Admin: 07/10/17 07:40 Dose: 10 mg Losartan Potassium (Cozaar) 100 mg PO DAILY [facility] Last Admin: 07/10/17 07:40 Dose: 100 mg Magnesium Hydroxide (Milk Of Magnesium) 30 ml PO DAILYPRN PRN PRN Reason: Constipation Metformin HCl (Glucophage) 500 mg PO BID-[facility] Last Admin: 07/10/17 07:41 Dose: Not Given Methylcellulose (Citrucel) 500 mg PO BID [facility] Last Admin: 07/10/17 07:39 Dose: 500 mg Metoprolol Succinate (Toprol Xl) 100 mg PO BID [facility] Last Admin: 07/10/17 07:40 Dose: 100 mg Mineral Oil/White Petrolatum (Eucerin Cream) 0 gm TOP BIDPRN PRN PRN Reason: Dry Skin Last Admin: 07/06/17 20:49 Dose: 1 applic Miscellaneous Medication (Pharmacy To Dose) 1 each IVPB .VANCOMYCIN [facility] Ondansetron HCl (Zofran Odt) 4 mg PO Q6H PRN PRN Reason: Nausea/Vomiting Ondansetron HCl (Zofran) 4 mg IVP Q6H PRN PRN Reason: Nausea/Vomiting Pantoprazole Sodium (Protonix) 40 mg PO DAILY [facility] Last Admin: 07/10/17 05:43 Dose: 40 mg Phenol (Chloraseptic [place] 180 Ml Bot) 0 ml PO PRN PRN PRN Reason: Sore Throat Polyethylene Glycol (Miralax) 17 gm PO BID [facility] Last Admin: 07/10/17 07:41 Dose: 17 gm Rivaroxaban (Xarelto) 15 mg PO HS [facility] Last Admin: 07/09/17 20:27 Dose: 15 mg Saccharomyces Boulardii (Florastor) 250 mg PO DAILY [facility] Last Admin: 07/10/17 07:40 Dose: 250 mg Senna (Senokot) 2 tab PO HSPRN PRN PRN Reason: Constipation Sertraline HCl (Zoloft) 50 mg PO DAILY [facility] Last Admin: 07/10/17 07:40 Dose: 50 mg Sodium Chloride ([place] Nasal [place] 0.65%) 0 ml EA NARE QIDPRN PRN PRN Reason: Nasal Congestion Sodium Chloride (Flush - Normal Saline) 10 ml IVF Q12HR [facility] Last Admin: 07/10/17 07:41 Dose: 10 ml Sodium Chloride (Flush - Normal Saline) 10 ml IVF PRN PRN PRN Reason: Saline Flush Temazepam (Restoril) 15 mg PO HS [facility] Last Admin: 07/09/17 20:22 Dose: 15 mg Tramadol HCl (Ultram) 50 mg PO Q6HR PRN PRN Reason: Pain Last Admin: 07/10/17 05:43 Dose: 50 mg Trazodone HCl (Desyrel) 100 mg PO [facility] Last Admin: 07/09/17 20:22 Dose: 100 mg Triamcinolone Acetonide (Kenalog 0.1% Ointment) 1 gm TOP BID [facility] Last Admin: 07/10/17 07:41 Dose: 1 gm
[2017-07-10] MEDS: HumaLOG 300 UNITS/3 ML VIAL SC PRN (11:59)
[2017-07-10] MEDS: Vancomycin HCl 750 MG in Sodium Chloride 0.9% 250 ML 250 ML IVPB SCH (19:55)
[2017-07-10] MEDS: traZODone HCl 50 MG TAB PO SCH (20:49)
[2017-07-10] MEDS: Bisacodyl 5 MG TAB PO SCH (20:50)
[2017-07-10] MEDS: diphenhydrAMINE 25 MG CAP PO SCH (20:50)
[2017-07-10] MEDS: Atorvastatin Calcium 20 MG TAB PO SCH (20:51)
[2017-07-10] MEDS: Temazepam 15 MG CAP PO SCH (20:52)
[2017-07-10] MEDS: Rivaroxaban 15 MG TAB PO SCH (20:53)
[2017-07-10] MEDS: hydrALAZINE 10 MG TAB PO SCH (20:54)
[2017-07-11] MEDS: Cefepime 2 GM, Syringe 2.5 ML in Sterile Water 10 ML SLOW IVP SCH ×2 (02:10→15:28)
[2017-07-11 04:49] LABS: Vancomycin, Trough 23.3 ug/mL
[2017-07-11] MEDS: Vancomycin HCl 1.5 GM in Sodium Chloride 0.9% 250 ML 300 ML IVPB SCH (05:18)
[2017-07-11] MEDS: Furosemide 20 MG/2 ML VIAL SLOW IVP SCH ×2 (06:41→15:22)
[2017-07-11] MEDS: metFORMIN 500 MG TAB PO SCH ×2 (08:33→16:50)
[2017-07-11] MEDS: Losartan 25 MG TAB PO SCH (08:33)
[2017-07-11] MEDS: Saccharomyces boulardii 250 MG CAP PO SCH (08:33)
[2017-07-11] MEDS: Glimepiride 2 MG TAB PO SCH (08:34)
[2017-07-11] MEDS: Calcium Carbonate 500 MG ChewTAB PO SCH ×2 (08:34→20:21)
[2017-07-11] MEDS: Lactinex Tablet PO SCH (08:35)
[2017-07-11] MEDS: Aspirin 81 mg Enteric Coated Tablet PO SCH (08:35)
[2017-07-11] MEDS: Citrucel 500 MG TAB PO SCH ×2 (08:35→20:25)
[2017-07-11] MEDS: Polyethylene Glycol 3350 17 GM Packet PO SCH ×2 (08:35→20:25)
[2017-07-11] MEDS: guaiFENesin ER 600 MG TAB PO SCH ×2 (08:35→20:22)
[2017-07-11] MEDS: Loratadine 10 MG TAB PO SCH (08:35)
[2017-07-11] MEDS: Ketotifen Fumarate 0.025% Ophth Soln 5 ml Bottle EA EYE SCH ×2 (08:36→20:25)
[2017-07-11] MEDS: Docusate 100 MG CAP PO SCH ×2 (08:37→20:22)
--- NOTE | 2017-07-11 09:18 | PDOC.PN ---
- Subjective Encounter Start Date: 07/11/17 Encounter Start Time: 07:50 Patient seen and examined. No new complaints. No overnight events - Objective Resuscitation Status: Resuscitation Status DNR:Do Not Resuscitate MAR Reviewed: Yes Vital Signs & Weight: Vital Signs (12 hours) Temp Pulse Resp BP Pulse Ox 07/11/17 08:03 97.9 F 87 18 149/80 H 95 07/11/17 07:20 78 16 96 Weight Weight 159 lb 8 oz I&O: 07/10/17 07/11/17 07/12/17 06:59 06:59 07:59 Intake Total 800 360 Balance 800 360 Result Diagrams: 07/10/17 08:25 07/09/17 08:31 Additional Labs: Accuchecks 07/11/17 07/10/17 07/10/17 04:01 20:29 16:43 POC Glucose 158 H 351 H 194 H 07/10/17 11:24 POC Glucose 324 H Phys Exam - Physical Examination Constitutional: NAD HEENT: PERRLA, moist MMs, sclera anicteric Neck: no JVD, supple Respiratory: no wheezing, no rales, no rhonchi Cardiovascular: RRR, no significant murmur, no rub Gastrointestinal: soft, non-tender, no distention, positive bowel sounds Musculoskeletal: no edema, pulses present Neurological: non-focal, normal sensation Lymphatic: no nodes Psychiatric: normal affect Skin: no rash, normal turgor Dx/Plan (1) Acute respiratory failure with hypoxia Code(s): J96.01 - ACUTE RESPIRATORY FAILURE WITH HYPOXIA Status: Resolved (2) Healthcare associated bacterial pneumonia Code(s): J15.9 - UNSPECIFIED BACTERIAL PNEUMONIA Status: Acute (3) Sepsis with acute organ dysfunction Code(s): A41.9 - SEPSIS, UNSPECIFIED ORGANISM; R65.20 - SEVERE SEPSIS WITHOUT SEPTIC SHOCK Status: Acute (4) UTI (urinary tract infection) Status: Acute (5) Chronic anticoagulation Code(s): Z79.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 Status: Chronic Comment: (6) Chronic atrial fibrillation Code(s): I48.2 - CHRONIC ATRIAL FIBRILLATION Status: Chronic Comment: (7) Diabetes type 2, controlled Code(s): E11.9 - TYPE 2 DIABETES MELLITUS WITHOUT COMPLICATIONS Status: Chronic Comment: (8) Diastolic heart failure Code(s): I50.30 - UNSPECIFIED DIASTOLIC (CONGESTIVE) HEART FAILURE Status: Chronic Qualifiers: Heart failure chronicity: chronic Qualified Code(s): I50.32 - Chronic diastolic (congestive) heart failure (9) Dyslipidemia Code(s): E78.5 - HYPERLIPIDEMIA, UNSPECIFIED Status: Chronic (10) Hypertension Code(s): I10 - ESSENTIAL (PRIMARY) HYPERTENSION Status: Chronic (11) Microcytic anemia Code(s): D50.9 - IRON DEFICIENCY ANEMIA, UNSPECIFIED Status: Chronic (12) Pulmonary hypertension Code(s): I27.2 - OTHER SECONDARY PULMONARY HYPERTENSION * DO NOT USE * Status : Chronic (13) Tricuspid regurgitation Code(s): I07.1 - RHEUMATIC TRICUSPID INSUFFICIENCY Status: Chronic - Plan cont current plan of care, continue antibiotics, PT/OT, social worker school, respiratory therapy * medication reviewed as below * symptomatic treatment * await snu placement at [facility] per pt and family request. Review of Systems - Review of Systems Eyes: negative: Pain, Vision Change, Conjunctivae Inflammation, Eyelid Inflammation, Redness, Other ENT: negative: Ear Pain, Ear Discharge, Nose Pain, Nose Discharge, Nose Congestion, Mouth Pain, Mouth Swelling, Throat Pain, Throat Swelling, Other Respiratory: negative: Cough, Dry, Shortness of Breath, Hemoptysis, SOB with Excertion, Pleuritic Pain, Sputum, Wheezing Cardiovascular: negative: chest pain, palpitations, orthopnea, paroxysmal nocturnal dyspnea, edema, light headedness, other Gastrointestinal: negative: Nausea, Vomiting, Abdominal Pain, Diarrhea, Constipation, Melena, Hematochezia, Other Genitourinary: negative: Dysuria, Frequency, Incontinence, Hematuria, Retention , Other Musculoskeletal: negative: Neck Pain, Shoulder Pain, Arm Pain, Back Pain, Hand Pain, Leg Pain, Foot Pain, Other Skin: negative: Rash, Lesions, Aris, Bruising, Other - Medications/Allergies Allergies/Adverse Reactions: Allergies Allergy/AdvReac Type Severity Reaction Status Date / Time acetaminophen Allergy Verified 09/26/16 00:03 [From Darvocet-N 100] buspirone HCl [From BuSpar] Allergy Verified 09/26/16 00:03 cetirizine Allergy Verified 09/26/16 00:03 codeine Allergy Verified 09/26/16 00:03 hydrocodone bitartrate Allergy Verified 09/26/16 00:03 [From Vicodin] mirtazapine Allergy Verified 09/26/16 00:03 naproxen Allergy Verified 09/26/16 00:03 Opioids - Morphine Analogues Allergy Verified 04/26/17 07:23 propoxyphene Allergy Verified 09/26/16 00:03 [From Darvocet-N 100] verapamil Allergy Verified 09/26/16 00:03 ciprofloxacin [From Cipro] AdvReac Verified 04/26/17 10:18 morphine AdvReac Nausea Verified 09/26/16 00:03 Medications: Current Medications Acidophilus (Floranex) 1 tab PO DAILY [facility] Last Admin: 07/11/17 08:35 Dose: 1 tab Al Hydroxide/Mg Hydroxide (Maalox) 30 ml PO Q6H PRN PRN Reason: Heartburn or Indigestion Albuterol/Ipratropium (Duoneb) 3 ml NEB [id number] [facility] Last Admin: 07/11/17 07:20 Dose: 3 ml Artificial Tears (Tears Naturale) 0 drop EA EYE PRN PRN PRN Reason: Dry Eyes Aspirin (Ecotrin) 81 mg PO DAILY [facility] Last Admin: 07/11/17 08:35 Dose: 81 mg Atorvastatin Calcium (Lipitor) 20 mg PO HS [facility] Last Admin: 07/10/17 20:51 Dose: 20 mg Bisacodyl (Dulcolax) 10 mg PO HS [facility] Last Admin: 07/10/17 20:50 Dose: 10 mg Calcium Carbonate (Tums) 1,000 mg PO BID [facility] Last Admin: 07/11/17 08:34 Dose: 1,000 mg Dextrose/Water (Dextrose 50%) 25 gm SLOW IVP PRN PRN PRN Reason: Hypoglycemia Diltiazem HCl (Cardizem Cd) 180 mg PO BID [facility] Last Admin: 07/11/17 08:34 Dose: 180 mg Diphenhydramine HCl (Benadryl) 25 mg PO HS [facility] Last Admin: 07/10/17 20:50 Dose: 25 mg Docusate Sodium (Colace) 100 mg PO BID [facility] Last Admin: 07/11/17 08:37 Dose: 100 mg Furosemide (Lasix) 20 mg SLOW IVP 0600,1400 [facility] Last Admin: 07/11/17 06:41 Dose: 20 mg Glimepiride (Amaryl) 2 mg PO QAM-WM [facility] Last Admin: 07/11/17 08:34 Dose: 2 mg Glucagon (Glucagon) 1 mg IM PRN PRN PRN Reason: Hypoglycemia Guaifenesin (Robitussin Sf) 200 mg PO Q4H PRN PRN Reason: Cough Last Admin: 07/07/17 03:59 Dose: 200 mg Guaifenesin (Mucinex) 600 mg PO Q12HR [facility] Last Admin: 07/11/17 08:35 Dose: 600 mg Hydralazine HCl (Apresoline) 10 mg SLOW IVP Q4H PRN PRN Reason: Systolic BP > 180 Hydralazine HCl (Apresoline) 10 mg PO HS [facility] Last Admin: 07/10/17 20:54 Dose: 10 mg Hydroxyzine HCl (Atarax) 25 mg PO Q6H PRN PRN Reason: .ITCHING Last Admin: 07/08/17 21:34 Dose: 25 mg Dextrose/Water (D5w) 1,000 mls @ 0 mls/hr IV .Q0M PRN; As Directed PRN Reason: Hypoglycemia Levofloxacin 750 mg/ Device 150 mls @ 100 mls/hr IVPB Q2D@1300 [facility] Last Admin: 07/09/17 12:10 Dose: 150 mls Cefepime HCl 2 gm/ Syringe 2.5 (ml/ Sterile Water) 12.5 mls @ 150 mls/hr SLOW IVP 0100,1300 [facility] Last Admin: 07/11/17 02:10 Dose: 12.5 mls Vancomycin HCl 1.25 gm/ Sodium (Chloride) 250 mls @ 166.667 mls/hr IVPB Q24HR@ 1100 [facility] Insulin Human Lispro (Humalog) 0 units SC .MODERATE SLIDING SC PRN PRN Reason: Moderate Correctional Scale Last Admin: 07/10/17 11:59 Dose: 8 unit Insulin Human Lispro (Humalog) 0 units SC .BEDTIME SLIDING SC PRN PRN Reason: Bedtime Correctional Scale Last Admin: 07/10/17 20:58 Dose: 5 unit Ketotifen Fumarate (Zaditor 0.025% Ophth Soln) 1 drop EA EYE BID [facility] Last Admin: 07/11/17 08:36 Dose: 1 drop Loperamide HCl (Imodium) 2 mg PO PRN PRN PRN Reason: Diarrhea/Loose Stools Loratadine (Claritin) 10 mg PO DAILY [facility] Last Admin: 07/11/17 08:35 Dose: 10 mg Losartan Potassium (Cozaar) 100 mg PO DAILY [facility] Last Admin: 07/11/17 08:33 Dose: 100 mg Magnesium Hydroxide (Milk Of Magnesium) 30 ml PO DAILYPRN PRN PRN Reason: Constipation Metformin HCl (Glucophage) 500 mg PO BID[facility] Last Admin: 07/11/17 08:33 Dose: 500 mg Methylcellulose (Citrucel) 500 mg PO BID [facility] Last Admin: 07/11/17 08:35 Dose: 500 mg Metoprolol Succinate (Toprol Xl) 100 mg PO BID [facility] Last Admin: 07/11/17 08:35 Dose: 100 mg Mineral Oil/White Petrolatum (Eucerin Cream) 0 gm TOP BIDPRN PRN PRN Reason: Dry Skin Last Admin: 07/06/17 20:49 Dose: 1 applic Miscellaneous Medication (Pharmacy To Dose) 1 each IVPB .VANCOMYCIN [facility] Ondansetron HCl (Zofran Odt) 4 mg PO Q6H PRN PRN Reason: Nausea/Vomiting Ondansetron HCl (Zofran) 4 mg IVP Q6H PRN PRN Reason: Nausea/Vomiting Pantoprazole Sodium (Protonix) 40 mg PO DAILY [facility] Last Admin: 07/11/17 06:47 Dose: 40 mg Phenol (Chloraseptic [place] 180 Ml Bot) 0 ml PO PRN PRN PRN Reason: Sore Throat Polyethylene Glycol (Miralax) 17 gm PO BID [facility] Last Admin: 07/11/17 08:35 Dose: 17 gm Rivaroxaban (Xarelto) 15 mg PO HS [facility] Last Admin: 07/10/17 20:53 Dose: 15 mg Saccharomyces Boulardii (Florastor) 250 mg PO DAILY [facility] Last Admin: 07/11/17 08:33 Dose: 250 mg Senna (Senokot) 2 tab PO HSPRN PRN PRN Reason: Constipation Sertraline HCl (Zoloft) 50 mg PO DAILY [facility] Last Admin: 07/11/17 08:35 Dose: 50 mg Sodium Chloride (Century Nasal [place] 0.65%) 0 ml EA NARE QIDPRN PRN PRN Reason: Nasal Congestion Sodium Chloride (Flush - Normal Saline) 10 ml IVF Q12HR [facility] Last Admin: 07/11/17 08:48 Dose: 10 ml Sodium Chloride (Flush - Normal Saline) 10 ml IVF PRN PRN PRN Reason: Saline Flush Temazepam (Restoril) 15 mg PO [facility] Last Admin: 07/10/17 20:52 Dose: 15 mg Tramadol HCl (Ultram) 50 mg PO Q6HR PRN PRN Reason: Pain Last Admin: 07/10/17 23:13 Dose: 50 mg Trazodone HCl (Desyrel) 100 mg PO [facility] Last Admin: 07/10/17 20:49 Dose: 100 mg Triamcinolone Acetonide (Kenalog 0.1% Ointment) 1 gm TOP BID [facility] Last Admin: 07/11/17 08:48 Dose: 1 gm
[2017-07-11] MEDS ORDERED: Vancomycin HCl 1.25 GM in Sodium Chloride 0.9% 250 ML 250 ML IVPB SCH (11:00)
[2017-07-11] MEDS: HumaLOG 300 UNITS/3 ML VIAL SC PRN (11:48)
[2017-07-11] MEDS: traMADol HCl 50 MG TAB PO PRN ×2 (12:23→18:27)
[2017-07-11] MEDS: diphenhydrAMINE 25 MG CAP PO SCH (18:27)
[2017-07-11] MEDS: Atorvastatin Calcium 20 MG TAB PO SCH (20:20)
[2017-07-11] MEDS: Bisacodyl 5 MG TAB PO SCH (20:21)
[2017-07-11] MEDS: Rivaroxaban 15 MG TAB PO SCH (20:25)
[2017-07-11] MEDS: traZODone HCl 50 MG TAB PO SCH (20:26)
[2017-07-11] MEDS: Temazepam 15 MG CAP PO SCH (20:26)
[2017-07-11] MEDS: hydrALAZINE 10 MG TAB PO SCH (20:37)
[2017-07-11] MEDS: hydrOXYzine 25 MG TAB PO PRN (22:21)
[2017-07-11 23:57] LABS: Troponin I Less than 0.010 ng/mL (< 0.028)
[2017-07-12 00:13] LABS: Anion Gap 17 mmol/L (10-20); BUN (Urea Nitrogen) 39 mg/dL (9.8-20.1); Calc. Creatinine Clearance 41 mL/min (70-130); Calcium 8.8 mg/dL (7.8-10.44); Carbon Dioxide 24 mmol/L (23-31); Chloride 95 mmol/L (98-107); Estimated GFR-MDRD 43; Glucose 151 mg/dL (83-110); Magnesium 1.9 mg/dL (1.6-2.6); Phosphorus 3.3 mg/dL (2.3-4.7); Potassium 4.6 mmol/L (3.5-5.1); Sodium 131 mmol/L (136-145)
[2017-07-12] MEDS: Cefepime 2 GM, Syringe 2.5 ML in Sterile Water 10 ML SLOW IVP SCH (01:11)
[2017-07-12] MEDS: Furosemide 20 MG/2 ML VIAL SLOW IVP SCH (06:00)
[2017-07-12] MEDS: Docusate 100 MG CAP PO SCH ×2 (08:08→20:20)
[2017-07-12] MEDS: Calcium Carbonate 500 MG ChewTAB PO SCH ×2 (08:08→20:19)
[2017-07-12] MEDS: Cefdinir 300 MG CAP PO SCH ×2 (08:09→20:20)
[2017-07-12] MEDS: guaiFENesin ER 600 MG TAB PO SCH ×2 (08:09→20:20)
[2017-07-12] MEDS: Aspirin 81 mg Enteric Coated Tablet PO SCH (08:09)
[2017-07-12] MEDS: Loratadine 10 MG TAB PO SCH (08:09)
[2017-07-12] MEDS: Furosemide 20 MG TAB PO SCH ×2 (08:09→14:53)
[2017-07-12] MEDS: Lactinex Tablet PO SCH (08:10)
[2017-07-12] MEDS: Saccharomyces boulardii 250 MG CAP PO SCH (08:10)
[2017-07-12] MEDS: traMADol HCl 50 MG TAB PO PRN ×2 (08:10→18:24)
[2017-07-12] MEDS: Losartan 25 MG TAB PO SCH (08:10)
[2017-07-12] MEDS: metFORMIN 500 MG TAB PO SCH ×2 (08:11→18:25)
[2017-07-12] MEDS: Glimepiride 2 MG TAB PO SCH (08:11)
[2017-07-12] MEDS: Citrucel 500 MG TAB PO SCH ×2 (08:12→20:20)
[2017-07-12] MEDS: Polyethylene Glycol 3350 17 GM Packet PO SCH ×2 (08:13→20:21)
[2017-07-12] MEDS: Ketotifen Fumarate 0.025% Ophth Soln 5 ml Bottle EA EYE SCH ×2 (08:13→20:37)
[2017-07-12] MEDS: hydrOXYzine 25 MG TAB PO PRN ×3 (08:29→20:31)
--- NOTE | 2017-07-12 09:20 | PDOC.PN ---
- Subjective Encounter Start Date: 07/12/17 Encounter Start Time: 07:50 pt feels burning discomfort diffusely but no rash, no pain, no fever, no itching Patient seen and examined. No overnight events - Objective Resuscitation Status: Resuscitation Status DNR:Do Not Resuscitate MAR Reviewed: Yes Vital Signs & Weight: Vital Signs (12 hours) Temp Pulse Resp BP BP Pulse Ox 07/12/17 07:39 98.0 F 75 18 153/89 H 94 L 07/12/17 06:34 83 16 95 07/12/17 05:32 98.1 F 64 20 163/77 H 94 L 07/11/17 22:00 97.9 F 83 20 96 07/11/17 20:37 83 Weight Weight 159 lb 8 oz I&O: 07/11/17 07/12/17 07/13/17 05:59 06:59 06:59 Intake Total Balance Result Diagrams: 07/10/17 08:25 07/11/17 23:50 Additional Labs: Accuchecks 07/12/17 07/11/17 07/11/17 05:36 22:36 16:01 POC Glucose 166 H 188 H 152 H 07/11/17 11:40 POC Glucose 199 H Phys Exam - Physical Examination Constitutional: NAD HEENT: PERRLA, moist MMs, sclera anicteric Neck: no JVD, supple Respiratory: no wheezing, no rales, no rhonchi Cardiovascular: RRR, no significant murmur, no rub Gastrointestinal: soft, non-tender, no distention, positive bowel sounds Musculoskeletal: no edema, pulses present Neurological: non-focal, normal sensation, moves all 4 limbs Lymphatic: no nodes Psychiatric: normal affect, A&O x 3 Skin: no rash, normal turgor Dx/Plan (1) Acute respiratory failure with hypoxia Code(s): J96.01 - ACUTE RESPIRATORY FAILURE WITH HYPOXIA Status: Resolved (2) Healthcare associated bacterial pneumonia Code(s): J15.9 - UNSPECIFIED BACTERIAL PNEUMONIA Status: Acute (3) Sepsis with acute organ dysfunction Code(s): A41.9 - SEPSIS, UNSPECIFIED ORGANISM; R65.20 - SEVERE SEPSIS WITHOUT SEPTIC SHOCK Status: Acute (4) UTI (urinary tract infection) Status: Acute (5) Chronic anticoagulation Code(s): 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 Status: Chronic Comment: (6) Chronic atrial fibrillation Code(s): I48.2 - CHRONIC ATRIAL FIBRILLATION Status: Chronic Comment: (7) Diabetes type 2, controlled Code(s): E11.9 - TYPE 2 DIABETES MELLITUS WITHOUT COMPLICATIONS Status: Chronic Comment: (8) Diastolic heart failure Code(s): I50.30 - UNSPECIFIED DIASTOLIC (CONGESTIVE) HEART FAILURE Status: Chronic Qualifiers: Heart failure chronicity: chronic Qualified Code(s): I50.32 - Chronic diastolic (congestive) heart failure (9) Dyslipidemia Code(s): E78.5 - HYPERLIPIDEMIA, UNSPECIFIED Status: Chronic (10) Hypertension Code(s): I10 - ESSENTIAL (PRIMARY) HYPERTENSION Status: Chronic (11) Microcytic anemia Code(s): D50.9 - IRON DEFICIENCY ANEMIA, UNSPECIFIED Status: Chronic (12) Pulmonary hypertension Code(s): I27.2 - OTHER SECONDARY PULMONARY HYPERTENSION * DO NOT USE * Status : Chronic (13) Tricuspid regurgitation Code(s): I07.1 - RHEUMATIC TRICUSPID INSUFFICIENCY Status: Chronic - Plan cont current plan of care, 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 Review of Systems - Review of Systems ENT: negative: Ear Pain, Ear Discharge, Nose Pain, Nose Discharge, Nose Congestion, Mouth Pain, Mouth Swelling, Throat Pain, Throat Swelling, Other Respiratory: negative: Cough, Dry, Shortness of Breath, Hemoptysis, SOB with Excertion, Pleuritic Pain, Sputum, Wheezing Cardiovascular: negative: chest pain, palpitations, orthopnea, paroxysmal nocturnal dyspnea, edema, light headedness, other Gastrointestinal: negative: Nausea, Vomiting, Abdominal Pain, Diarrhea, Constipation, Melena, Hematochezia, Other Genitourinary: negative: Dysuria, Frequency, Incontinence, Hematuria, Retention , Other Musculoskeletal: negative: Neck Pain, Shoulder Pain, Arm Pain, Back Pain, Hand Pain, Leg Pain, Foot Pain, Other Skin: negative: Rash, Lesions, Aris, Bruising, Other - Medications/Allergies Allergies/Adverse Reactions: Allergies Allergy/AdvReac Type Severity Reaction Status Date / Time acetaminophen Allergy Verified 09/26/16 00:03 [From Darvocet-N 100] buspirone HCl [From BuSpar] Allergy Verified 09/26/16 00:03 cetirizine Allergy Verified 09/26/16 00:03 codeine Allergy Verified 09/26/16 00:03 hydrocodone bitartrate Allergy Verified 09/26/16 00:03 [From Vicodin] mirtazapine Allergy Verified 09/26/16 00:03 naproxen Allergy Verified 09/26/16 00:03 Opioids - Morphine Analogues Allergy Verified 04/26/17 07:23 propoxyphene Allergy Verified 09/26/16 00:03 [From Darvocet-N 100] verapamil Allergy Verified 09/26/16 00:03 ciprofloxacin [From Cipro] AdvReac Verified 04/26/17 10:18 morphine AdvReac Nausea Verified 09/26/16 00:03 Medications: Current Medications Acidophilus (Floranex) 1 tab PO DAILY [facility] Last Admin: 07/12/17 08:10 Dose: 1 tab Al Hydroxide/Mg Hydroxide (Maalox) 30 ml PO Q6H PRN PRN Reason: Heartburn or Indigestion Albuterol/Ipratropium (Duoneb) 3 ml NEB [id number] [facility] Last Admin: 07/12/17 06:34 Dose: 3 ml Artificial Tears (Tears Naturale) 0 drop EA EYE PRN PRN PRN Reason: Dry Eyes Aspirin (Ecotrin) 81 mg PO DAILY [facility] Last Admin: 07/12/17 08:09 Dose: 81 mg Atorvastatin Calcium (Lipitor) 20 mg PO HS [facility] Last Admin: 07/11/17 20:20 Dose: 20 mg Bisacodyl (Dulcolax) 10 mg PO [facility] Last Admin: 07/11/17 20:21 Dose: 10 mg Calcium Carbonate (Tums) 1,000 mg PO BID [facility] Last Admin: 07/12/17 08:08 Dose: 1,000 mg Cefdinir (Omnicef) 300 mg PO BID [facility] Last Admin: 07/12/17 08:09 Dose: 300 mg Dextrose/Water (Dextrose 50%) 25 gm SLOW IVP PRN PRN PRN Reason: Hypoglycemia Diltiazem HCl (Cardizem Cd) 180 mg PO BID [facility] Last Admin: 07/12/17 08:10 Dose: 180 mg Diphenhydramine HCl (Benadryl) 25 mg PO [facility] Last Admin: 07/11/17 18:27 Dose: 25 mg Docusate Sodium (Colace) 100 mg PO BID [facility] Last Admin: 07/12/17 08:08 Dose: 100 mg Furosemide (Lasix) 20 mg PO 0900,1400 [facility] Last Admin: 07/12/17 08:09 Dose: 20 mg Glimepiride (Amaryl) 2 mg PO QAM-WM [facility] Last Admin: 07/12/17 08:11 Dose: 2 mg Glucagon (Glucagon) 1 mg IM PRN PRN PRN Reason: Hypoglycemia Guaifenesin (Robitussin Sf) 200 mg PO Q4H PRN PRN Reason: Cough Last Admin: 07/07/17 03:59 Dose: 200 mg Guaifenesin (Mucinex) 600 mg PO Q12HR [facility] Last Admin: 07/12/17 08:09 Dose: 600 mg Hydralazine HCl (Apresoline) 10 mg SLOW IVP Q4H PRN PRN Reason: Systolic BP > 180 Hydralazine HCl (Apresoline) 10 mg PO HS [facility] Last Admin: 07/11/17 20:37 Dose: 10 mg Hydroxyzine HCl (Atarax) 25 mg PO Q6H PRN PRN Reason: .ITCHING Last Admin: 07/12/17 08:29 Dose: 25 mg Dextrose/Water (D5w) 1,000 mls @ 0 mls/hr IV .Q0M PRN; As Directed PRN Reason: Hypoglycemia Insulin Human Lispro (Humalog) 0 units SC .MODERATE SLIDING SC PRN PRN Reason: Moderate Correctional Scale Last Admin: 07/11/17 11:48 Dose: 2 unit Insulin Human Lispro (Humalog) 0 units SC .BEDTIME SLIDING SC PRN PRN Reason: Bedtime Correctional Scale Last Admin: 07/10/17 20:58 Dose: 5 unit Ketotifen Fumarate (Zaditor 0.025% Ophth Soln) 1 drop EA EYE BID [facility] Last Admin: 07/12/17 08:13 Dose: 1 drop Loperamide HCl (Imodium) 2 mg PO PRN PRN PRN Reason: Diarrhea/Loose Stools Loratadine (Claritin) 10 mg PO DAILY [facility] Last Admin: 07/12/17 08:09 Dose: 10 mg Losartan Potassium (Cozaar) 100 mg PO DAILY [facility] Last Admin: 07/12/17 08:10 Dose: 100 mg Magnesium Hydroxide (Milk Of Magnesium) 30 ml PO DAILYPRN PRN PRN Reason: Constipation Metformin HCl (Glucophage) 500 mg PO BID-[facility] Last Admin: 07/12/17 08:11 Dose: 500 mg Methylcellulose (Citrucel) 500 mg PO BID [facility] Last Admin: 07/12/17 08:12 Dose: 500 mg Metoprolol Succinate (Toprol Xl) 100 mg PO BID [facility] Last Admin: 07/12/17 08:08 Dose: 100 mg Mineral Oil/White Petrolatum (Eucerin Cream) 0 gm TOP BIDPRN PRN PRN Reason: Dry Skin Last Admin: 07/06/17 20:49 Dose: 1 applic Ondansetron HCl (Zofran Odt) 4 mg PO Q6H PRN PRN Reason: Nausea/Vomiting Ondansetron HCl (Zofran) 4 mg IVP Q6H PRN PRN Reason: Nausea/Vomiting Pantoprazole Sodium (Protonix) 40 mg PO DAILY [facility] Last Admin: 07/12/17 06:00 Dose: 40 mg Phenol (Chloraseptic [place] 180 Ml Bot) 0 ml PO PRN PRN PRN Reason: Sore Throat Polyethylene Glycol (Miralax) 17 gm PO BID [facility] Last Admin: 07/12/17 08:13 Dose: 17 gm Rivaroxaban (Xarelto) 15 mg PO [facility] Last Admin: 07/11/17 20:25 Dose: 15 mg Saccharomyces Boulardii (Florastor) 250 mg PO DAILY [facility] Last Admin: 07/12/17 08:10 Dose: 250 mg Senna (Senokot) 2 tab PO HSPRN PRN PRN Reason: Constipation Sertraline HCl (Zoloft) 50 mg PO DAILY [facility] Last Admin: 07/12/17 08:09 Dose: 50 mg Sodium Chloride ([place] Nasal [place] 0.65%) 0 ml EA NARE QIDPRN PRN PRN Reason: Nasal Congestion Sodium Chloride (Flush - Normal Saline) 10 ml IVF Q12HR [facility] Last Admin: 07/12/17 08:13 Dose: 10 ml Sodium Chloride (Flush - Normal Saline) 10 ml IVF PRN PRN PRN Reason: Saline Flush Temazepam (Restoril) 15 mg PO [facility] Last Admin: 03/10/18 20:26 Dose: 15 mg Tramadol HCl (Ultram) 50 mg PO Q6HR PRN PRN Reason: Pain Last Admin: 07/12/17 08:10 Dose: 50 mg Trazodone HCl (Desyrel) 100 mg PO HS [facility] Last Admin: 07/11/17 20:26 Dose: 100 mg Triamcinolone Acetonide (Kenalog 0.1% Ointment) 1 gm TOP BID [facility] Last Admin: 07/12/17 08:14 Dose: 1 gm
[2017-07-12] MEDS: diphenhydrAMINE 25 MG CAP PO SCH (11:18)
[2017-07-12] MEDS: HumaLOG 300 UNITS/3 ML VIAL SC PRN (12:24)
[2017-07-12] MEDS ORDERED: diphenhydrAMINE 25 MG CAP PO PRN (15:05)
[2017-07-12] MEDS: Atorvastatin Calcium 20 MG TAB PO SCH (20:19)
[2017-07-12] MEDS: Bisacodyl 5 MG TAB PO SCH (20:19)
[2017-07-12] MEDS: traZODone HCl 50 MG TAB PO SCH (20:21)
[2017-07-12] MEDS: Rivaroxaban 15 MG TAB PO SCH (20:21)
[2017-07-12] MEDS: hydrALAZINE 10 MG TAB PO SCH (20:21)
[2017-07-12] MEDS: Temazepam 15 MG CAP PO SCH (20:31)
[2017-07-13 08:02] LABS: #Eosinphils 0.6 thou/uL (0.0-0.7); #Lymphocytes 2.1 thou/uL (1.20-3.40); #Monocytes 1.1 thou/uL (0.11-0.59); #Neutrophils 14.5 thou/uL (1.40-6.50); %Basophils 0.1 % (0.0-1.0); %Eosinophils 3.2 % (0.0-10.0); %Lymphocytes 11.6 % (21.0-51.0); %Monocytes 5.9 % (0.0-10.0); %Neutrophils 79.2 % (42.0-75.0); Hemoglobin 11.4 g/dL (12.0-16.0); Mean Corpuscular HGB CONC 31.3 g/dL (32.0-36.0); Mean Corpuscular Hemoglobin 24.1 pg (27.0-31.0); Mean Corpuscular Volume 76.9 fl (81.0-99.0); Mean Platelet Volume 7.4 fL (7.4-10.4); Platelet Count 326 thou/uL (130-400); RBC Distribution Width 14.3 % (11.5-14.5); Red Blood Cell (RBC) Count 4.73 mill/uL (4.20-5.40); White Blood Cell (WBC) Count 18.3 thou/uL (4.8-10.8)
[2017-07-13 08:06] VITALS: TEMP 98.2
[2017-07-13 08:17] LABS: Anion Gap 15 mmol/L (10-20); BUN (Urea Nitrogen) 45 mg/dL (9.8-20.1); Calc. Creatinine Clearance 35 mL/min (70-130); Calcium 9.4 mg/dL (7.8-10.44); Carbon Dioxide 29 mmol/L (23-31); Chloride 94 mmol/L (98-107); Estimated GFR-MDRD 36; Glucose 170 mg/dL (83-110); Potassium 3.8 mmol/L (3.5-5.1); Sodium 134 mmol/L (136-145)
[2017-07-13] MEDS: Loratadine 10 MG TAB PO SCH (08:26)
[2017-07-13] MEDS: Aspirin 81 mg Enteric Coated Tablet PO SCH (08:26)
[2017-07-13] MEDS: Calcium Carbonate 500 MG ChewTAB PO SCH (08:26)
[2017-07-13] MEDS: guaiFENesin ER 600 MG TAB PO SCH (08:26)
[2017-07-13] MEDS: metFORMIN 500 MG TAB PO SCH (08:26)
[2017-07-13] MEDS: Glimepiride 2 MG TAB PO SCH (08:26)
[2017-07-13] MEDS: Lactinex Tablet PO SCH (08:26)
[2017-07-13] MEDS: Furosemide 20 MG TAB PO SCH (08:26)
[2017-07-13] MEDS: traMADol HCl 50 MG TAB PO PRN ×2 (08:26→15:54)
[2017-07-13] MEDS: Saccharomyces boulardii 250 MG CAP PO SCH (08:26)
[2017-07-13] MEDS: Cefdinir 300 MG CAP PO SCH (08:26)
[2017-07-13] MEDS: Docusate 100 MG CAP PO SCH (08:26)
[2017-07-13] MEDS: Citrucel 500 MG TAB PO SCH (08:26)
[2017-07-13] MEDS: Polyethylene Glycol 3350 17 GM Packet PO SCH (08:26)
[2017-07-13] MEDS: Losartan 25 MG TAB PO SCH (08:26)
[2017-07-13] MEDS: Ketotifen Fumarate 0.025% Ophth Soln 5 ml Bottle EA EYE SCH (08:26)
[2017-07-13] MEDS: hydrOXYzine 25 MG TAB PO PRN ×2 (08:26→13:10)
--- NOTE | 2017-07-13 09:51 | PDOC.PN ---
- Subjective Encounter Start Date: 07/13/17 Encounter Start Time: 08:20 Patient seen and examined. No new complaints. No overnight events - Objective Resuscitation Status: Resuscitation Status DNR:Do Not Resuscitate MAR Reviewed: Yes Vital Signs & Weight: Vital Signs (12 hours) Temp Pulse Resp BP BP Pulse Ox 07/13/17 08:00 98.2 F 77 22 H 111/69 96 07/13/17 06:14 76 16 97 07/13/17 05:22 97.7 F 65 18 156/74 H 97 Weight Weight 159 lb 8 oz I&O: 07/12/17 07/13/17 07/14/17 06:59 06:59 06:59 Intake Total 470 Balance 470 Result Diagrams: 07/13/17 07:23 07/13/17 07:23 Additional Labs: Accuchecks 07/13/17 07/12/17 07/12/17 05:19 20:19 17:06 POC Glucose 190 H 203 H 90 07/12/17 10:24 POC Glucose 270 H Phys Exam - Physical Examination Constitutional: NAD HEENT: PERRLA, moist MMs, sclera anicteric Neck: no JVD, supple Respiratory: no wheezing, no rales, no rhonchi Cardiovascular: RRR, no significant murmur, no rub Gastrointestinal: soft, non-tender, no distention, positive bowel sounds Musculoskeletal: no edema, pulses present Neurological: non-focal, normal sensation Psychiatric: normal affect, A&O x 3 Skin: no rash, normal turgor Dx/Plan (1) Acute respiratory failure with hypoxia Code(s): J96.01 - ACUTE RESPIRATORY FAILURE WITH HYPOXIA Status: Resolved (2) Healthcare associated bacterial pneumonia Code(s): J15.9 - UNSPECIFIED BACTERIAL PNEUMONIA Status: Acute (3) Sepsis with acute organ dysfunction Code(s): A41.9 - SEPSIS, UNSPECIFIED ORGANISM; R65.20 - SEVERE SEPSIS WITHOUT SEPTIC SHOCK Status: Acute (4) UTI (urinary tract infection) Status: Acute (5) Chronic anticoagulation Code(s): Z79.01 - RETIREMENT (CURRENT) USE OF ANTICOAGULANTS Status: Chronic Comment: (6) Chronic atrial fibrillation Code(s): I48.2 - CHRONIC ATRIAL FIBRILLATION Status: Chronic Comment: (7) Diabetes type 2, controlled Code(s): E11.9 - TYPE 2 DIABETES MELLITUS WITHOUT COMPLICATIONS Status: Chronic Comment: (8) Diastolic heart failure Code(s): I50.30 - UNSPECIFIED DIASTOLIC (CONGESTIVE) HEART FAILURE Status: Chronic Qualifiers: Heart failure chronicity: chronic Qualified Code(s): I50.32 - Chronic diastolic (congestive) heart failure (9) Dyslipidemia Code(s): E78.5 - HYPERLIPIDEMIA, UNSPECIFIED Status: Chronic (10) Hypertension Code(s): I10 - ESSENTIAL (PRIMARY) HYPERTENSION Status: Chronic (11) Microcytic anemia Code(s): D50.9 - IRON DEFICIENCY ANEMIA, UNSPECIFIED Status: Chronic (12) Pulmonary hypertension Code(s): I27.2 - OTHER SECONDARY PULMONARY HYPERTENSION * DO NOT USE * Status : Chronic (13) Tricuspid regurgitation Code(s): I07.1 - RHEUMATIC TRICUSPID INSUFFICIENCY Status: Chronic - Plan cont current plan of care, continue antibiotics, psychotherapist social worker * dc lasix * await placement * discussed with ed case manager * i have updated plan and discussed hospital course in details to her son on phone yesterday * medication reviewed as below * symptomatic treatment. Review of Systems - Review of Systems ENT: negative: Ear Pain, Ear Discharge, Nose Pain, Nose Discharge, Nose Congestion, Mouth Pain, Mouth Swelling, Throat Pain, Throat Swelling, Other Respiratory: negative: Cough, Dry, Shortness of Breath, Hemoptysis, SOB with Excertion, Pleuritic Pain, Sputum, Wheezing Cardiovascular: negative: chest pain, palpitations, orthopnea, paroxysmal nocturnal dyspnea, edema, light headedness, other Gastrointestinal: negative: Nausea, Vomiting, Abdominal Pain, Diarrhea, Constipation, Melena, Hematochezia, Other Genitourinary: negative: Dysuria, Frequency, Incontinence, Hematuria, Retention , Other Musculoskeletal: negative: Neck Pain, Shoulder Pain, Arm Pain, Back Pain, Hand Pain, Leg Pain, Foot Pain, Other - Medications/Allergies Allergies/Adverse Reactions: Allergies Allergy/AdvReac Type Severity Reaction Status Date / Time acetaminophen Allergy Verified 09/26/16 00:03 [From Darvocet-N 100] buspirone HCl [From BuSpar] Allergy Verified 09/26/16 00:03 cetirizine Allergy Verified 09/26/16 00:03 codeine Allergy Verified 09/26/16 00:03 hydrocodone bitartrate Allergy Verified 09/26/16 00:03 [From Vicodin] mirtazapine Allergy Verified 09/26/16 00:03 naproxen Allergy Verified 09/26/16 00:03 Opioids - Morphine Analogues Allergy Verified 04/26/17 07:23 propoxyphene Allergy Verified 09/26/16 00:03 [From Darvocet-N 100] verapamil Allergy Verified 09/26/16 00:03 ciprofloxacin [From Cipro] AdvReac Verified 04/26/17 10:18 morphine AdvReac Nausea Verified 09/26/16 00:03 Medications: Current Medications Acidophilus (Floranex) 1 tab PO DAILY [facility] Last Admin: 07/12/17 08:10 Dose: 1 tab Al Hydroxide/Mg Hydroxide (Maalox) 30 ml PO Q6H PRN PRN Reason: Heartburn or Indigestion Albuterol/Ipratropium (Duoneb) 3 ml NEB [id number] [facility] Last Admin: 07/13/17 06:14 Dose: 3 ml Artificial Tears (Tears Naturale) 0 drop EA EYE PRN PRN PRN Reason: Dry Eyes Aspirin (Ecotrin) 81 mg PO DAILY [facility] Last Admin: 07/12/17 08:09 Dose: 81 mg Atorvastatin Calcium (Lipitor) 20 mg PO HS [facility] Last Admin: 07/12/17 20:19 Dose: 20 mg Bisacodyl (Dulcolax) 10 mg PO HS [facility] Last Admin: 07/12/17 20:19 Dose: 10 mg Calcium Carbonate (Tums) 1,000 mg PO BID [facility] Last Admin: 07/12/17 20:19 Dose: 1,000 mg Cefdinir (Omnicef) 300 mg PO BID [facility] Last Admin: 07/12/17 20:20 Dose: 300 mg Dextrose/Water (Dextrose 50%) 25 gm SLOW IVP PRN PRN PRN Reason: Hypoglycemia Diltiazem HCl (Cardizem Cd) 180 mg PO BID [facility] Last Admin: 07/12/17 20:20 Dose: 180 mg Diphenhydramine HCl (Benadryl) 25 mg PO HS [facility] Last Admin: 07/12/17 11:18 Dose: 25 mg Diphenhydramine HCl (Benadryl) 25 mg PO Q6H PRN PRN Reason: .ITCHING Docusate Sodium (Colace) 100 mg PO BID [facility] Last Admin: 07/12/17 20:20 Dose: 100 mg Glimepiride (Amaryl) 2 mg PO QAM[facility] Last Admin: 07/12/17 08:11 Dose: 2 mg Glucagon (Glucagon) 1 mg IM PRN PRN PRN Reason: Hypoglycemia Guaifenesin (Robitussin Sf) 200 mg PO Q4H PRN PRN Reason: Cough Last Admin: 07/07/17 03:59 Dose: 200 mg Guaifenesin (Mucinex) 600 mg PO Q12HR [facility] Last Admin: 07/12/17 20:20 Dose: 600 mg Hydralazine HCl (Apresoline) 10 mg SLOW IVP Q4H PRN PRN Reason: Systolic BP > 180 Hydralazine HCl (Apresoline) 10 mg PO [facility] Last Admin: 07/12/17 20:21 Dose: 10 mg Hydroxyzine HCl (Atarax) 25 mg PO Q6H PRN PRN Reason: .ITCHING Last Admin: 07/12/17 20:31 Dose: 25 mg Dextrose/Water (D5w) 1,000 mls @ 0 mls/hr IV .Q0M PRN; As Directed PRN Reason: Hypoglycemia Insulin Human Lispro (Humalog) 0 units SC .MODERATE SLIDING SC PRN PRN Reason: Moderate Correctional Scale Last Admin: 07/12/17 12:24 Dose: 6 unit Insulin Human Lispro (Humalog) 0 units SC .BEDTIME SLIDING SC PRN PRN Reason: Bedtime Correctional Scale Last Admin: 07/10/17 20:58 Dose: 5 unit Ketotifen Fumarate (Zaditor 0.025% Oph Soln) 1 drop EA EYE BID [facility] Last Admin: 07/12/17 20:37 Dose: 1 drop Loperamide HCl (Imodium) 2 mg PO PRN PRN PRN Reason: Diarrhea/Loose Stools Loratadine (Claritin) 10 mg PO DAILY [facility] Last Admin: 07/12/17 08:09 Dose: 10 mg Losartan Potassium (Cozaar) 100 mg PO DAILY [facility] Last Admin: 07/12/17 08:10 Dose: 100 mg Magnesium Hydroxide (Milk Of Magnesium) 30 ml PO DAILYPRN PRN PRN Reason: Constipation Metformin HCl (Glucophage) 500 mg PO BID[facility] Last Admin: 07/12/17 18:25 Dose: 500 mg Methylcellulose (Citrucel) 500 mg PO BID [facility] Last Admin: 07/12/17 20:20 Dose: 500 mg Metoprolol Succinate (Toprol Xl) 100 mg PO BID [facility] Last Admin: 07/12/17 20:21 Dose: 100 mg Mineral Oil/White Petrolatum (Eucerin Cream) 0 gm TOP BIDPRN PRN PRN Reason: Dry Skin Last Admin: 07/06/17 20:49 Dose: 1 applic Ondansetron HCl (Zofran Odt) 4 mg PO Q6H PRN PRN Reason: Nausea/Vomiting Ondansetron HCl (Zofran) 4 mg IVP Q6H PRN PRN Reason: Nausea/Vomiting Pantoprazole Sodium (Protonix) 40 mg PO DAILY [facility] Last Admin: 07/12/17 06:00 Dose: 40 mg Phenol (Chloraseptic [place] 180 Ml Bot) 0 ml PO PRN PRN PRN Reason: Sore Throat Polyethylene Glycol (Miralax) 17 gm PO BID [facility] Last Admin: 07/12/17 20:21 Dose: 17 gm Rivaroxaban (Xarelto) 15 mg PO [facility] Last Admin: 07/12/17 20:21 Dose: 15 mg Saccharomyces Boulardii (Florastor) 250 mg PO DAILY [facility] Last Admin: 07/12/17 08:10 Dose: 250 mg Senna (Senokot) 2 tab PO HSPRN PRN PRN Reason: Constipation Sertraline HCl (Zoloft) 50 mg PO DAILY [facility] Last Admin: 07/12/17 08:09 Dose: 50 mg Sodium Chloride ([place] Nasal [place] 0.65%) 0 ml EA NARE QIDPRN PRN PRN Reason: Nasal Congestion Sodium Chloride (Flush - Normal Saline) 10 ml IVF Q12HR [facility] Last Admin: 07/12/17 20:42 Dose: 10 ml Sodium Chloride (Flush - Normal Saline) 10 ml IVF PRN PRN PRN Reason: Saline Flush Temazepam (Restoril) 15 mg PO [facility] Last Admin: 07/12/17 20:31 Dose: 15 mg Tramadol HCl (Ultram) 50 mg PO Q6HR PRN PRN Reason: Pain Last Admin: 07/12/17 18:24 Dose: 50 mg Trazodone HCl (Desyrel) 100 mg PO [facility] Last Admin: 07/12/17 20:21 Dose: 100 mg Triamcinolone Acetonide (Kenalog 0.1% Ointment) 1 gm TOP BID [facility] Last Admin: 07/12/17 20:42 Dose: 1 gm
[2017-07-13] MEDS: HumaLOG 300 UNITS/3 ML VIAL SC PRN (11:24)
--- NOTE | 2017-07-13 13:17 | DIS ---
DATE OF ADMISSION: 07/05/2017 DATE OF DISCHARGE: 07/13/2017 PRIMARY CARE PHYSICIAN: Cecile Morales M.D. [facility]ITION[facility] PRIMARY DISCHARGE DIAGNOSES: 1. Healthcare associated bacterial pneumonia. 2. Sepsis with acute organ dysfunction. 3. Urinary tract infection. 4. Acute respiratory failure with hypoxia, resolved. SECONDARY DISCHARGE DIAGNOSES: Tricuspid regurgitation, pulmonary hypertension, microcytic anemia, h ypertension, dyslipidemia, chronic diastolic heart failure, diabetes type 2, chronic atrial fibrillat ion, and chronic anticoagulation. PRIMARY PROCEDURES/OPERATIONS: PICC line placement. RADIOLOGICAL INVESTIGATION: Chest x-ray on admission showed cardiomegaly, bilateral pulmonary densit y consistent with multifocal bronchopneumonia. Repeat chest x-ray showed improvement in infiltration . Echocardiography showed at this time EF 40%-45% AFIB with tricuspid regurgitation, pulmonary regur gitation and pulmonary hypertension. SIGNIFICANT LABORATORY DATA: WBC 18.3, hemoglobin 11.4, platelets 324. INR 2.1. PH 7.43, bicarbona te 27.7, O2 76.8. Sodium 134, potassium 3.8, BUN 45, creatinine 1.40, calcium 9.4. Cardiac enzyme n egative. LFTs unremarkable. Urinalysis suggestive of UTI. Blood culture negative, influenza negati ve, urine culture negative. DISCHARGE MEDICATIONS: Tylenol 650 mg q.6 hourly p.r.n., Maalox 30 mL p.o. q.4 hourly p.r.n., aspiri n 81 mg p.o. daily, Lipitor 20 mg p.o. at bedtime, Dulcolax 10 mg p.o. at bedtime, Omnicef 300 mg twi ce daily for 5 days, Citrucel 500 mg p.o. b.i.d., Cardizem-CD 180 mg p.o. b.i.d., Benadryl 25 mg p.o. at bedtime, Colace 100 mg p.o. b.i.d., Lasix 20 mg p.o. daily, Amaryl 2 mg p.o. daily, Robitussin 10 mL q.4 hourly p.r.n., hydralazine 10 mg p.o. at bedtime, Zaditor ophthalmic drops b.i.d., probiotic 1 capsule daily, Claritin 10 mg daily, losartan 100 mg p.o. daily, Maalox 30 mL q.8 hourly p.r.n., Mi lk of Magnesia 30 mL p.o. b.i.d. p.r.n., metformin 500 mg p.o. b.i.d., Toprol-XL 100 mg p.o. b.i.d., Protonix 40 mg p.o. daily, MiraLax 17 grams p.o. b.i.d., Xarelto 15 mg p.o. at bedtime, Zoloft 50 mg p.o. daily, Restoril 15 mg p.o. at bedtime, tramadol 50 mg q.6 hourly p.r.n., trazodone 100 mg p.o. a t bedtime. CONTRAINDICATIONS: None. CODE STATUS: DNR. INPATIENT CONSULTANTS: None. ALLERGIES: ACETAMINOPHEN, BUSPIRONE, CETIRIZINE, CODEINE. DISCHARGE PLAN: Post hospital, patient is discharged to [facility]. Subsequently, patient will follow up with primary care physician. HOSPITAL COURSE: An 82-year-old female who was admitted by me on 07/05/2017. Please see my HPI for further details. This patient was living at [facility] where the patient was found le ss responsive as well as short of breath. This patient was saturating only 80% on room air. She was found with acute respiratory failure. She was brought to emergency room. In the emergency room, est x-ray showed bilateral multifocal pneumonia. She was hypertensive and she was having low grade f rodolfo. She was meeting sepsis with acute organ dysfunction. She was having difficult IV access and that is why she required PICC line. She was admitted to telemetry floor. The patient was treated with broad spectrum antibiotic therapy with vancomycin and Zosyn and patient was doing very well. She also had acute on chronic congestive heart failure. During this admission, we did echocardiography because she did not have echocardiogra phy for the last couple of years and that showed mild decrease in EF. The patient is already on Topr ol-XL and losartan. This patient treated initially with Lasix IV and subsequently as renal function was going up, then we changed to p.o. Lasix and subsequently we hold while in hospital for elevated c reatinine, but that medication can be restarted at low dose to prevent worsening of congestive heart failure upon discharge. The patient finished IV antibiotic therapy while in hospital. We are changing to Omnicef for another 5 days. We did a repeat chest x-ray that showed improvement in her infiltration. Patient did not r equire any oxygen upon discharge. This patient has chronic physical deconditioning and she was not doing well with physical therapy cristobal henson in hospital. This patient is done with the [facility] and patient's son was trying to arrange [facility] facility [facility] versus [facility]. With help of our [employer], we are arranging [facility] to [facility]. At this point, patient is medically stable for discharge. She is very high risk for recurrent admiss ion given her multiple medical problems and fragility. The patient is seen and examined at bedside today. Plan of care discussed with the patient. I spoke with patient's son on phone and updated about plan of care as well and discharge plan discussed with him as well. Paperwork for discharge done. Discharge medication reconciliation done. Total time spent on discharge day more than 30 minutes.
[2017-07-13 16:37] VITALS: BP 107/56
--- NOTE | 2017-07-18 12:36 | EKG ---
Test Reason : Blood Pressure : / mmHG Vent. Rate : 089 BPM Atrial Rate : 208 BPM P-R Int : 000 ms QRS Dur : 096 ms QT Int : 378 ms P-R-T Axes : 000 -55 074 degrees QTc Int : 459 ms Atrial fibrillation with premature ventricular or aberrantly conducted complexes Left axis deviation Moderate voltage criteria for LVH, may be normal variant Abnormal ECG Confirmed by LISSA SANCHEZ, JUVE ([id number]), index editor ANABELA JAMIL ([id number]) on 07/18/2017 12:35:58 PM Referred By: Confirmed By:JUVE ALCARAZ MD
== END 2017-07-13 17:50 | DRG 871 ==
LOC: ERS 04:52 → 2NO 06:22 → T4-A 07-06 17:13
PROVIDERS: ADMIT Internal Medicine; ATTEND Internal Medicine
PROC: 02HV33Z Insertion of Infusion Device into Superior Vena Cava, Percutaneous Approach (ICD-10-PCS; principal; 2017-07-05)
DX: A41.9 Sepsis, unspecified organism (principal); J96.01 Acute respiratory failure with hypoxia; I50.23 Acute on chronic systolic (congestive) heart failure; J15.9 Unspecified bacterial pneumonia; I48.2 Chronic atrial fibrillation; I11.0 Hypertensive heart disease with heart failure; I27.20 Pulmonary hypertension, unspecified; E11.9 Type 2 diabetes mellitus without complications; N39.0 Urinary tract infection, site not specified; R65.20 Severe sepsis without septic shock; E78.5 Hyperlipidemia, unspecified; K21.9 Gastro-esophageal reflux disease without esophagitis; F32.9 Major depressive disorder, single episode, unspecified; F41.9 Anxiety disorder, unspecified; I36.1 Nonrheumatic tricuspid (valve) insufficiency; Z86.73 Personal history of transient ischemic attack (TIA), and cerebral infarction without residual deficits; Z85.3 Personal history of malignant neoplasm of breast; Z88.1 Allergy status to other antibiotic agents; Z88.5 Allergy status to narcotic agent; Z88.8 Allergy status to other drugs, medicaments and biological substances; Z79.84 Long term (current) use of oral hypoglycemic drugs; Z79.82 Long term (current) use of aspirin; Z79.899 Other long term (current) drug therapy; Z90.12 Acquired absence of left breast and nipple; Y95 Nosocomial condition
CPT/HCPCS: 36415; 36416; 36569; 71045; 80048; 80053; 80202; 81001; 82553; 82805; 83605; 83690; 83735; 83880; 84100; 84484; 85025; 85610; 85730; 87040; 87086; 87804; 93005; 93306; 94640; A4216; C1751; G8978-GP-CM; G8979-GP-CL; J0692; J1644; J1940; J1956; J2405; J2930; J3370; J7050; J7611; J7620